=== PATIENT | male | born 1970 | race Caucasian/White ===

== ENCOUNTER → 2019-11-20 11:06 | Outpatient (BNVA) | payer OTHER, SELFPAY | PROVIDERS: Visit Provider Emergency Medicine | DX: R68.83 Chills (without fever) (principal); R68.89 Other general symptoms and signs | CPT/HCPCS: 87400; 87635 ==

== ENCOUNTER 2019-11-25 09:52 | Inpatient (IN) | payer OTHER, SELFPAY ==
[2019-11-25] VITALS (9 sets, daily range): BP systolic 119–145; BP diastolic 55–70; PULSE 67–101; RESP 18–20; TEMP 36.8–39.2; O2SAT 93–96; BMI 31.4
--- NOTE | 2019-11-25 09:54 | CT_ITS ---
WS: [id number] CT HEAD NONCONTRAST HISTORY: Headache. TECHNIQUE: Contiguous axial imaging performed through the brain in 2.5 mm imaging. Bone and soft tiss ue windows. Sagittal and coronal reformats reviewed. All CT scans at [facility] use at ast one of these dose optimization techniques: automated exposure control; mA and/or kV adjustment pe r patient size (includes targeted exams where dose is matched to clinical indication); or iterative r econstruction. DLP: 846.18 mGy.cm COMPARISON: None available. No acute intracranial hemorrhage, midline shift or mass effect. No atrophy or prior infarcts or herniation. Ventricles: Normal size with no hydrocephalus. Paranasal sinuses: As visualized are clear. Mastoid air cells: Well pneumatized. Calvarium and scalp: Skull is intact with no soft tissue edema or swelling. CT/CT head wo con* [id number] IMPRESSION: Negative head CT.
--- NOTE | 2019-11-25 10:29 | ED_ITS ---
Documented by User: WILLY Cleveland 11/25/19 13:14 HPI - Fever General: Chief Complaint: Fever Stated Complaint: H/A Time Seen by Provider: 11/25/19 10:16 Source: patient and family Mode of arrival: ambulatory Limitations: no limitations History of Present Illness: HPI Narrative: Patient is a 49-year-old male who presents to ED today with multiple medical complaints. He complains of a headache, fevers of up to 102-104, generalized weakness, shortness of breath with exertion, and increased urination. He states he is having trouble sleeping due to dry mouth and getting choked up on phlegm. He does not describe a cough otherwise. He has no shortness of breath or difficulty breathing at rest. Patient was seen at urgent care recently and had negative flu and COVID testing performed. Patient not had any sick contacts. He denies any recent tick bites. He is not having any abdominal pain, vomiting, diarrhea. He denies any lower extremity pain, swelling, cramping. Patient does report some pain to the left side of his neck and left ear pain he has not had any ear drainage, tinnitus, hearing loss, redness/swelling surrounding his ear. No back pain. Associated symptoms: Deny abdominal pain, flank pain, chest pain, diarrhea, dysuria, extremity pain, headache(s), nasal congestion, nausea or vomiting Review of Systems Const: Reports: fever(s), change in appetite and fatigue; Denies: body aches or malaise Eyes: Denies: change in vision, blurry vision, photophobia, floaters or seeing flashes ENMT: Denies: throat pain, odynophagia or nasal congestion Card: Reports: dyspnea on exertion; Denies: chest pain, palpitations, irregular heart rhythm, edema, swelling of feet/ankles, lightheadedness, syncope, pre-syncope, orthopnea or leg pain with exertion Resp: Reports: dyspnea (only with exertion ) and chest congestion (reports some phlegm when trying to sleep); Denies: productive cough, non-productive cough or hemoptysis GI: Denies: abdominal pain, nausea, vomiting or diarrhea : Reports: other (increased urination); Denies: flank pain, difficulty urinating, dysuria, urinary frequency, urinary urgency or urinary hesitancy Musc: Reports: neck pain (L sided neck pain); Denies: back pain, extremity pain, extremity swelling, joint pain or joint swelling Skin/Breast: Denies: rash Neuro: Denies: headache(s), numbness in extremities, weakness in extremities or sensory changes PFSH ED PFSH: Medical History (Updated 11/25/19 @ 14:02 by Katey Martinez MD) Essential hypertension Heart murmur, systolic Palpitation Surgical History No pertinent past surgical history Family History Other CAD (coronary artery disease) Cancer Diabetes Social History Smoking and tobacco status: current every day smoker cigarettes Packs smoked per day: 1 Quit status (tobacco): not considering quitting Alcohol intake: current Alcohol intake frequency: few times a month Substance/Drug Use: never Household members: family Marital status: Current occupational status: employed 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 History of recent travel: No Current gender identity: Male Physical Exam Const: COMMON NORMALS: patient oriented x3, no limitations, alert and well nourished GENERAL APPEARANCE: cooperative ORIENTATION/CONSCIOUSNESS: Yes oriented to person, Yes oriented to place and Yes oriented to time OTHER: looks like he doesn't feel well HENMT: COMMON NORMALS: normocephalic, atraumatic, hearing grossly normal harriet aterally, external ears normal, EAC's normal, Normal external nose present, Normal nasal mucous membranes and turbinates present, moist oral mucous membranes, oropharynx normal, dentition normal and gingiva normal HEAD & SCALP: normal to inspection, normocephalic and atraumatic FACE & SINUS: normal facial exam and sinuses nontender NOSE: Normal external nose present and Normal nasal mucous membranes and turbinates present EXTERNAL EAR: Yes external ears normal EXTERNAL AUDITORY CANAL: EAC's normal TYMPANIC MEMBRANE: TM abnormal (retractions/serous otitis) THROAT: posterior orophar ynx normal, tonsils normal and uvula midline Eye: COMMON NORMALS: Equal, round and reactive pupils present, EOMs intact bilaterally and conjunctivae normal CONJUNCTIVA: Yes conjunctivae normal PUPIL: Yes Equal, round and reactive pupils present Neck/C-Spine: COMMON NORMALS: full ROM, no lymphadenopathy and no meningeal signs OTHER: tenderness to L side of neck; negative Kernig's and Brudzinski's Chest: COMMONS NORMALS: normal inspection of the chest and normal palpation of entire chest wall Resp: COMMON NORMALS: normal respiratory effort and clear to auscultation bilaterally AUSCULTATION: clear to auscultation bilaterally Cardio: COMMON NORMALS: regular rhythm RATE: tachycardic (mild) RHYTHM: regular rhythm GI: COMMON NORMALS: Normal to inspection, nondistended, normoactive bowel sounds present, Soft to palpation, non-tender, No hepatosplenomegaly present and no masses PALPATION: Yes Soft to palpation and Yes No hepatosplenomegaly present Extremity: COMMON NORMALS: normal to inspection GENERAL: Yes normal exam except as noted Neuro: ELI COMA SCALE: document GCS findings Eli coma scale eye opening: Spontaneous Eli coma scale verbal response: Orientated Eli coma scale motor response: Obey commands [place] coma scale total score: 15 COMMON NORMALS: patient oriented x3, CN's II-XII intact bilaterally, moves all extremities, no focal motor deficits and no sensory deficits noted SENSORIUM/ORIENTATION: Yes alert, Yes oriented to person, Yes oriented to place and Yes oriented to time MENINGEAL SIGNS: Yes no meningeal signs Skin: COMMON NORMALS: no rashes or lesions noted GENERAL SKIN EXAM: no rash es or lesions noted Course Vital Signs: Vital signs: Vital Signs Temperature 100.6 F H 11/25/19 20:00 Pulse Rate 84 11/25/19 20:00 Respiratory Rate 20 H 11/25/19 20:00 Blood Pressure 145/70 11/25/19 20:00 Pulse Oximetry 95 11/25/19 19:00 MDM - Fever MDM Narrative: Medical decision making narrative: This is now patient's third medical visit for similar symptoms. He has had symptoms now for 6 days and does not seem to be improving. Patient's lab work showing a white count of 18.4 with a left shift. He is hyponatremic at 125, hypokalemic at 3.1, hypocalcemic at 7.7. He has mildly elevated LFTs. CRP is 294. I have a suspicion based on these for possible tickborne illness. We will go ahead and place patient on IV doxycycline. Dr. Lauren has also seen patient and agrees with admission. She will speak to the hospitalist. Lab Data: Labs: Lab Results 11/25/19 11/25/19 11/25/19 Range/Units 11:06 11:06 11:06 WBC 18.4 H (4.0-10.0) 10^3/ uL RBC 4.69 (4.1-5.3) 10^6/u L Hgb 14.6 (11.7-16.6) g/dL Hct 40.7 L (42.0-52.0) % MCV 86.8 (80-94) fL MCH 31.1 (28.0-34.0) pg MCHC 35.9 (30.0-36.0) g/dL RDW 12.6 (12.1-15.1) % Plt Count 36 L (130-400) 10^3/c mm MPV Not Reportable Neut % (Auto) 86.7 % Lymph % (Auto) 5.9 % [place] % (Auto) 5.6 % Eos % (Auto) 0.0 % Baso % (Auto) 0.3 % Neut # (Auto) 15.98 H (1.8-7.7) 10^3/u L Lymph # (Auto) 1.1 (0.8-4.8) 10^3/u L [place] # (Auto) 1.0 H (0.2-0.9) 10^3/u L Eos # (Auto) 0.0 (0.0-0.8) 10^3/u L Baso # (Auto) 0.1 (0.0-0.1) 10^3/u L Nucleated RBC % (a uto) 0 % Nucleated RBCs # 0.0 /100WBC PT (10.5-13.3) SECO NDS INR (0.8-1.2) D-Dimer (0-0.59) ug/mIFE U Sodium 125 L (136-145) mmol/L Potassium 3.1 L (3.5-5.1) mmol/L Chloride 90 L (98-107) mmol/L Carbon Dioxide 22 (22-29) mmol/L Anion Gap 16.1 (5-19) BUN 16 (6-20) mg/dL Creatinine 1.0 (0.7-1.2) mg/dL GFR Calculation 80.1 L (90-130) mL/min Glucose 133 H (65-115) mg/dL Calculated Osmolal ity 258 L (285-295) mOsm/k g Lactic Acid 1.1 (0.5-2.2) mmol/L Calcium 7.7 L (8.5-10.5) mg/dL Total Bilirubin 1.2 (0.15-1.2) mg/dL AST 41 H (0-40) U/L ALT 51 H (0-41) U/L Alkaline Phosphata se 176 H (40-130) IU/L C-Reactive Protein 294.8 H (0.0-4.9) mg/L Total Protein 6.0 L (6.6-8.7) g/dL Albumin 2.8 L (3.5-5.2) g/dL Globulin 3.2 (1.3-4.6) g/dL TSH (0.27-4.20) uIU/ mL Urine Color (Yellow) Urine Appearance (CLEAR) Urine pH (5-7) Ur Specific Gravit y (1.005-1.030) Urine Protein (Negative) Urine Glucose (UA) (Normal) Urine Ketones (Negative) Urine Blood (Negative) Urine Nitrate (Negative) Urine Bilirubin (NEGATIVE) Urine Urobilinogen (Negative) mg/dL Ur Leukocyte Minerva ase (Negative) Urine RBC (0-2) /hpf Urine WBC (0-5) /hpf Ur Squamous Epith Cells (0-5) Amorphous Sediment Urine Bacteria (NONE) 11/25/19 11/25/19 11/25/19 Range/Units 11:06 11:06 11:58 WBC (4.0-10.0) 10^3/ uL RBC (4.1-5.3) 10^6/u L Hgb (11.7-16.6) g/dL Hct (42.0-52.0) % MCV (80-94) fL MCH (28.0-34.0) pg MCHC (30.0-36.0) g/dL RDW (12.1-15.1) % Plt Count (130-400) 10^3/c mm MPV Neut % (Auto) % Lymph % (Auto) % [place] % (Auto) % Eos % (Auto) % Baso % (Auto) % Neut # (Auto) (1.8-7.7) 10^3/u L Lymph # (Auto) (0.8-4.8) 10^3/u L [place] # (Auto) (0.2-0.9) 10^3/u L Eos # (Auto) (0.0-0.8) 10^3/u L Baso # (Auto) (0.0-0.1) 10^3/u L Nucleated RBC % (a uto) % Nucleated RBCs # /100WBC PT 15.10 H (10.5-13.3) SECO NDS INR 1.15 (0.8-1.2) D-Dimer 4.59 H (0-0.59) ug/mIFE U Sodium (136-145) mmol/L Potassium (3.5-5.1) mmol/L Chloride (98-107) mmol/L Carbon Dioxide (22-29) mmol/L Anion Gap (5-19) BUN (6-20) mg/dL Creatinine (0.7-1.2) mg/dL GFR Calculation (90-130) mL/min Glucose (65-115) mg/dL Calculated Osmolal ity (285-295) mOsm/k g Lactic Acid (0.5-2.2) mmol/L Calcium (8.5-10.5) mg/dL Total Bilirubin (0.15-1.2) mg/dL AST (0-40) U/L ALT (0-41) U/L Alkaline Phosphata se (40-130) IU/L C-Reactive Protein (0.0-4.9) mg/L Total Protein (6.6-8.7) g/dL Albumin (3.5-5.2) g/dL Globulin (1.3-4.6) g/dL TSH 0.91 (0.27-4.20) uIU/ mL Urine Color Yellow (Yellow) Urine Appearance Clear (CLEAR) Urine pH 5 (5-7) Ur Specific Gravit y 1.010 (1.005-1.030) Urine Protein 1+ H (Negative) Urine Glucose (UA) Norm (Normal) Urine Ketones 1+ H (Negative) Urine Blood 3+ H (Negative) Urine Nitrate Negative (Negative) Urine Bilirubin Neg (NEGATIVE) Urine Urobilinogen Norm (Negative) mg/dL Ur Leukocyte Minerva ase Negative (Negative) Urine RBC 25-40 H (0-2) /hpf Urine WBC 0-4 H (0-5) /hpf Ur Squamous Epith Cells 0-4 H (0-5) Amorphous Sediment Not Reportable Urine Bacteria 2+ H (NONE) Imaging Data^: CT Head: Radiologist's impression: [address] [place] [address] CT Scan Report Signed Patient: Chip Ramirez Unit #: [id number] : 1970 Age/Sex: 49 / M ADM Date: 11/25/19 Loc: ER Room/Bed: Attending Dr: Ordering Provider/Ordering MD: Kelton Bagley DO Date of Service: 11/25/19 Procedure(s): CT head wo con* [id number] Accession Number(s): [id number] Report Number: [id number] WS: [id number] CT HEAD NONCONTRAST HISTORY: Headache. TECHNIQUE: Contiguous axial imaging performed through the brain in 2.5 mm imaging. Bone and soft tissue windows. Sagittal and coronal reformats reviewed. All CT scans at [facility] use at least one of these dose optimization techniques: automated exposure control; mA and/or kV adjustment per patient size (includes targeted exams where dose is matched to clinical indication); or iterative reconstruction. DLP: 846.18 mGy.cm COMPARISON: None available. No acute intracranial hemorrhage, midline shift or mass effect. No atrophy or prior infarcts or herniation. Ventricles: Normal size with no hydrocephalus. Paranasal sinuses: As visualized are clear. Mastoid air cells: Well pneumatized. Calvarium and scalp: Skull is intact with no soft tissue edema or swelling. CT/CT head wo con* [id number] IMPRESSION: Negative head CT. Dictated By: Jacki Suárez DO Signed By: Jacki Suárez DO Signed Date/Time: 11/25/19 1049 DD/ 1048 CXR: Radiologist's impression: [facility] [address] [place] [address] XRay Report Signed Patient: Chip Ramirez Unit #: [id number] : 1970 Age/Sex: 49 / M ADM Date: 11/25/19 Loc: ER Room/Bed: Attending Dr: Ordering Provider/Ordering MD: Kiana Reyes Date of Service: 11/25/19 Procedure(s): XR chest 1V portable [id number] Accession Number(s): [id number] Report Number: [id number] WS: [id number] Portable AP upright chest, Clinical Data: SOB, fevers Comparison: None. Findings: No nodules, masses or effusions are seen. The heart is slightly enlarged. The pulmonary vascularity is not increased. No pneumonia or pneumothorax is seen. XR/XR chest 1V portable [id number] Impression: Negative chest. Dictated By: Kenyatta Stallings MD Signed By: Kenyatta Stallings MD Signed Date/Time: 11/25/19 103 DD/ 1039 Discharge Plan Discharge Patient Disposition: Placed in Observation Admit Provider: Katey Martinez Clinical Impression: Acute hyponatremia, Thrombocytopenia, COVID-19 virus test result unknown, Transaminitis Fever Qualifiers: Fever type: unspecified Qualified Code(s): R50.9 - Fever, unspecified Leukocytosis Qualifiers: Leukocytosis type: unspecified Qualified Code(s): D72.829 - Elevated white b lood cell count, unspecified Condition: Stable Discharge Date/Time: 11/25/19 13:52 Coding Level of Care Code ED Internal Audit Consultant for Chg Fwd Exam Comprehensive Documented by User: Nina Lauren MD 11/25/19 21:46 HPI - Fever General: Chief Complaint: Fever Stated Complaint: H/A Time Seen by Provider: 11/25/19 10:16 PFSH ED PFSH: Medical History (Updated 11/25/19 @ 14:02 by Katey Martinez MD) Essential hypertension Heart murmur, systolic Palpitation Surgical History No pertinent past surgical history Family History Other CAD (coronary artery disease) Cancer Diabetes Social History Smoking and tobacco status: current every day smoker cigarettes Packs smoked per day: 1 Quit status (tobacco): not considering quitting Alcohol intake: current Alcohol intake frequency: few times a month Substance/Drug Use: never Household members: family Marital status: Current occupational status: employed 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 Patient has had over a week of fever. He has been seen at the [place] urgent [facility] in urgent care in [place]. On his initial visit on November 19 he was tested for flu and COVID and both came back negative. He was given Zithromax which she has completed. On his second visit he was given Zofran and Fioricet for his headache. His symptoms are general and consistent with some sort of viral syndrome with fever, chills, body aches, headache, nausea. He also complains of fatigue. His labs were concerning for potential tickborne illness given thrombocytopenia, hyponatremia, hypokalemia. His white count is also elevated to 18,000. His LFTs are elevated. His CRP is quite high. He does not recall any tick bites. He does not have any meningeal signs and I do not think that an LP is necessary at this point. We will start doxycycline and sent a tick panel for the possibility of a tick related illness. Were also going to retest for COVID given the high rate of false negative results that has typically been seen with that test. He is also getting normal saline with potassium. CT of his head and chest x-ray were both normal. He will be admitted to Dr. Martinez for further evaluation, treatment, electrolyte replacement. Vital Signs: Vital signs: Vital Signs Temperature 100.6 F H 11/25/19 20:00 Pulse Rate 84 11/25/19 20:00 Respiratory Rate 20 H 11/25/19 20:00 Blood Pressure 145/70 11/25/19 20:00 Pulse Oximetry 95 07/23/20 19:00 MDM - Fever Lab Data: Labs: Lab Results 11/25/19 11/25/19 11/25/19 Range/Units 11:06 11:06 11:06 WBC 18.4 H (4.0-10.0) 10^3/ uL RBC 4.69 (4.1-5.3) 10^6/u L Hgb 14.6 (11.7-16.6) g/dL Hct 40.7 L (42.0-52.0) % MCV 86.8 (80-94) fL MCH 31.1 (28.0-34.0) pg MCHC 35.9 (30.0-36.0) g/dL RDW 12.6 (12.1-15.1) % Plt Count 36 L (130-400) 10^3/c mm MPV Not Reportable Neut % (Auto) 86.7 % Lymph % (Auto) 5.9 % [place] % (Auto) 5.6 % Eos % (Auto) 0.0 % Baso % (Auto) 0.3 % Neut # (Auto) 15.98 H (1.8-7.7) 10^3/u L Lymph # (Auto) 1.1 (0.8-4.8) 10^3/u L [place] # (Auto) 1.0 H (0.2-0.9) 10^3/u L Eos # (Auto) 0.0 (0.0-0.8) 10^3/u L Baso # (Auto) 0.1 (0.0-0.1) 10^3/u L Nucleated RBC % (a uto) 0 % Nucleated RBCs # 0.0 /100WBC PT (10.5-13.3) SECO NDS INR (0.8-1.2) D-Dimer (0-0.59) ug/mIFE U Sodium 125 L (136-145) mmol/L Potassium 3.1 L (3.5-5.1) mmol/L Chloride 90 L (98-107) mmol/L Carbon Dioxide 22 (22-29) mmol/L Anion Gap 16.1 (5-19) BUN 16 (6-20) mg/dL Creatinine 1.0 (0.7-1.2) mg/dL GFR Calculation 80.1 L (90-130) mL/min Glucose 133 H (65-115) mg/dL Calculated Osmolal ity 258 L (285-295) mOsm/k g Lactic Acid 1.1 (0.5-2.2) mmol/L Calcium 7.7 L (8.5-10.5) mg/dL Total Bilirubin 1.2 (0.15-1.2) mg/dL AST 41 H (0-40) U/L ALT 51 H (0-41) U/L Alkaline Phosphata se 176 H (40-130) IU/L C-Reactive Protein 294.8 H (0.0-4.9) mg/L Total Protein 6.0 L (6.6-8.7) g/dL Albumin 2.8 L (3.5-5.2) g/dL Globulin 3.2 (1.3-4.6) g/dL TSH (0.27-4.20) uIU/ mL Urine Color (Yellow) Urine Appearance (CLEAR) Urine pH (5-7) Ur Specific Gravit y (1.005-1.030) Urine Protein (Negative) Urine Glucose (UA) (Normal) Urine Ketones (Negative) Urine Blood (Negative) Urine Nitrate (Negative) Urine Bilirubin (NEGATIVE) Urine Urobilinogen (Negative) mg/dL Ur Leukocyte Minerva ase (Negative) Urine RBC (0-2) /hpf Urine WBC (0-5) /hpf Ur Squamous Epith Cells (0-5) Amorphous Sediment Urine Bacteria (NONE) 11/25/19 11/25/19 11/25/19 Range/Units 11:06 11:06 11:58 WBC (4.0-10.0) 10^3/ uL RBC (4.1-5.3) 10^6/u L Hgb (11.7-16.6) g/dL Hct (42.0-52.0) % MCV (80-94) fL MCH (28.0-34.0) pg MCHC (30.0-36.0) g/dL RDW (12.1-15.1) % Plt Count (130-400) 10^3/c mm MPV Neut % (Auto) % Lymph % (Auto) % [place] % (Auto) % Eos % (Auto) % Baso % (Auto) % Neut # (Auto) (1.8-7.7) 10^3/u L Lymph # (Auto) (0.8-4.8) 10^3/u L [place] # (Auto) (0.2-0.9) 10^3/u L Eos # (Auto) (0.0-0.8) 10^3/u L Baso # (Auto) (0.0-0.1) 10^3/u L Nucleated RBC % (a uto) % Nucleated RBCs # /100WBC PT 15.10 H (10.5-13.3) SECO NDS INR 1.15 (0.8-1.2) D-Dimer 4.59 H (0-0.59) ug/mIFE U Sodium (136-145) mmol/L Potassium (3.5-5.1) mmol/L Chloride (98-107) mmol/L Carbon Dioxide (22-29) mmol/L Anion Gap (5-19) BUN (6-20) mg/dL Creatinine (0.7-1.2) mg/dL GFR Calculation (90-130) mL/min Glucose (65-115) mg/dL Calculated Osmolal ity (285-295) mOsm/k g Lactic Acid (0.5-2.2) mmol/L Calcium (8.5-10.5) mg/dL Total Bilirubin (0.15-1.2) mg/dL AST (0-40) U/L ALT (0-41) U/L Alkaline Phosphata se (40-130) IU/L C-Reactive Protein (0.0-4.9) mg/L Total Protein (6.6-8.7) g/dL Albumin (3.5-5.2) g/dL Globulin (1.3-4.6) g/dL TSH 0.91 (0.27-4.20) uIU/ mL Urine Color Yellow (Yellow) Urine Appearance Clear (CLEAR) Urine pH 5 (5-7) Ur Specific Gravit y 1.010 (1.005-1.030) Urine Protein 1+ H (Negative) Urine Glucose (UA) Norm (Normal) Urine Ketones 1+ H (Negative) Urine Blood 3+ H (Negative) Urine Nitrate Negative (Negative) Urine Bilirubin Neg (NEGATIVE) Urine Urobilinogen Norm (Negative) mg/dL Ur Leukocyte Minerva ase Negative (Negative) Urine RBC 25-40 H (0-2) /hpf Urine WBC 0-4 H (0-5) /hpf Ur Squamous Epith Cells 0-4 H (0-5) Amorphous Sediment Not Reportable Urine Bacteria 2+ H (NONE) Discharge Plan Discharge Patient Disposition: Placed in Observation Admit Provider: Katey Martinez Clinical Impression: Acute hyponatremia, Thrombocytopenia, COVID-19 virus test result unknown, Transaminitis Fever Qualifiers: Fever type: unspecified Qualified Code(s): R50.9 - Fever, unspecified Leukocytosis Qualifiers: Leukocytosis type: unspecified Qualified Code(s): D72.829 - Elevated white blood cell count, unspecified Condition: Stable Discharge Date/Time: 11/25/19 13:52 Coding Level of Care Code ED Internal Audit Consultant for Afsanehg Fwd Exam Comprehensive
--- NOTE | 2019-11-25 10:29 | PC.NURSE ---
pt to CT scan by stretcher with tech
--- NOTE | 2019-11-25 10:30 | XR_ITS ---
WS: [id number] Portable AP upright chest, Clinical Data: SOB, fevers Comparison: None. Findings: No nodules, masses or effusions are seen. The heart is slightly enlarged. The pulmonary vas cularity is not increased. No pneumonia or pneumothorax is seen. XR/XR chest 1V portable [id number] Impression: Negative chest.
[2019-11-25] MEDS: sodium chloride 0.9% 1,000 ML 999 ML IV (11:11)
[2019-11-25 11:16] LABS: Basophils # 0.1 10^3/uL (0.0-0.1); Basophils % 0.3 %; Hematocrit 40.7 % (42.0-52.0); Hemoglobin 14.6 g/dL (11.7-16.6); Lymphocytes # 1.1 10^3/uL (0.8-4.8); Lymphocytes % 5.9 %; Mean Corpuscular HGB Conc 35.9 g/dL (30.0-36.0); Mean Corpuscular Hemoglobin 31.1 pg (28.0-34.0); Mean Corpuscular Volume 86.8 fL (80-94); Monocytes % 5.6 %; Neutrophils # 15.98 10^3/uL (1.8-7.7); Neutrophils % 86.7 %; Nucleated Red Blood Cells % 0 %; Platelet Count 36 10^3/cmm (130-400); Red Blood Count 4.69 10^6/uL (4.1-5.3); Red Cell Distribution Width 12.6 % (12.1-15.1); White Blood Count 18.4 10^3/uL (4.0-10.0)
[2019-11-25 11:32] LABS: Lactic Sepsis W/Reflex 1.1 mmol/L (0.5-2.2)
[2019-11-25 11:34] LABS: Alanine Aminotransferase 51 U/L (0-41); Albumin Level 2.8 g/dL (3.5-5.2); Alkaline Phosphatase 176 IU/L (40-130); Anion Gap 16.1 (5-19); Aspartate Amino Transferase 41 U/L (0-40); Blood Urea Nitrogen 16 mg/dL (6-20); C Reactive Protein 294.8 mg/L (0.0-4.9); Calcium 7.7 mg/dL (8.5-10.5); Carbon Dioxide 22 mmol/L (22-29); Chloride 90 mmol/L (98-107); Globulin 3.2 g/dL (1.3-4.6); Glomerular Filtration Rate 80.1 mL/min (90-130); Glucose 133 mg/dL (65-115); Osmolality Calculated 258 mOsm/kg (285-295); Potassium 3.1 mmol/L (3.5-5.1); Sodium 125 mmol/L (136-145); Total Bilirubin 1.2 mg/dL (0.15-1.2)
[2019-11-25 12:13] LABS: Add Urine Microscopic? YES; Bilirubin Urine Neg (NEGATIVE); Blood Urine 3+ (Negative); Glucose Urine UA Norm (Normal); Ketones Urine 1+ (Negative); Leukocyte Esterase Urine Negative (Negative); Nitrate Urine Negative (Negative); Protein Urine 1+ (Negative); Urine Appearance Clear (CLEAR); Urine Color Yellow (Yellow); Urobilinogen Urine Norm (Negative); pH Urine 5 (5-7)
[2019-11-25 12:16] LABS: Add Urine Culture? Yes; Bacteria Urine 2+; RBC Urine 25-40 /hpf (0-2); Squamous Epithelial Cell Urine 0-4 (0-5); WBC Urine 0-4 /hpf (0-5)
[2019-11-25] MEDS: doxycycline 100 MG in sodium chloride 0.9% (plus) 100 ML IV (12:55)
--- NOTE | 2019-11-25 13:09 | PC.NURSE ---
pt swabbed for COVID 19 salas virus and placed on droplet precautions
--- NOTE | 2019-11-25 13:30 | P.HP_ITS ---
Providers/Chief Complaint Admitting Physician: Katey Martinez MD Primary Care Provider: DOCTOR NOT ON FILE Chief Complaint: H/A History of Present Illness Chip Ramirez is a 49 year old male with no significant PMHx presents from home accompanied by evaluation of ongoing malaise, fever, diaphoresis, generalized weakness, headache for the past 5 days. Patient is quite ill-appearing during my encounter in the ER, is at bedside and collaborates history obtained directly from patient. On my entrance to the room room is dark, shades are drawn and he is visibly diaphoretic. Getting him to sit up during my examination seem to take a lot out of him and he is close as well as leaning on the stretcher and noted to be soaked through. Seems to have had ongoing symptoms since Friday which is the last day he was able to go to work. 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 Up until Friday he seemed to be managing just fine. Was not taking any medications regularly. However since then due to ongoing symptoms including a T-max of 104F he has been seen by his primary care provider who thought symptoms are related to respiratory illness and prescribed a course of azithromycin. Patient took this with limited improvement so pre sented to an urgent care center in [place] on Friday, was given some pain medications then sent home. He has continued to feel poorly with minimal oral intake other than some water prompting visit to the ER today. He denies having had any chest pain but has had some shortness of breath when exerting himself. Though he has had some generalized weakness he has not had any falls, denies any palpitations, syncope. He has had some intermittent blurry vision particularly when he is feverish. Denies any changes in his mental status or disorientation, lightheadedness, abdominal pain, nausea/vomiting, blood in his urine or stool, changes in his urination. At the onset of his symptoms he began to have diarrhea which has persisted. Last full meal was on Friday. He has been feeling so poorly that he has not been able to smoke, typically smokes 1 pack/day. He denies any alcohol use or illicit drug use. Work-up so far has revealed leukocytosis with neutrophilic predominance, white count of 18.4, normal hemoglobin at 14.6, significant thrombocytopenia with a platelet count of 36, hyponatremia with a sodium of 125, hypokalemia with a potassium of 3.1, BUN of 16, creatinine of 1.0, blood glucose of 133, noted transaminitis, CRP of 254.8. He appears hypocalcemic but corrected calcium is 8.7. He has received some IV fluid hydration and a dose of doxycycline due to suspicion for tickborne illness the patient denies any exposure to ticks, has not had any rash or lesions on his skin. He is currently hemodynamically stable, afebrile with a temperature of 90 8.8F. He was tested for COVID-19 on 11/19 but due to his ongoing symptoms we will retest him today. He will need to be on isolation precautions. In light of his generally ill appearance, lab abnormalities will need further evaluation and hospitalization. Discussed care plan with patient and at bedside. Review of Systems Const: Reports: fever(s), chills, body aches, change in appetite (decreased appetite), fatigue, malaise, night sweats and diaphoresis Eyes: Reports: blurry vision (intermittently); Denies: change in vision ENMT: Denies: odynophagia or oral sores Card: Reports: dyspnea on exertion; Denies: chest pain, edema, swelling of feet/ankles, lightheadedness, syncope or pre-syncope Resp: Denies: dyspnea, productive cough or non-productive cough GI: Reports: diarrhea; Denies: abdominal pain, nausea, vomiting, hematemesis or hematochezia : Denies: dysuria, urinary frequency or hematuria Musc: Denies: back pain Skin/Breast: Denies: rash Neuro: Reports: headache(s), weakness in extremities and difficulty walking; Denies: numbness in extremities, frequent falls, dizziness, vertigo, confusion or seizure-like activity Psych: Denies: anxiety Endo: Denies: polyuria Medications/Allergies Home Medications Medication Instructions Recorded Confirmed Last Taken Type albuterol sulfate 90 mcg/actuation 2 puff INHALATION Q6H PRN #8.5 gm 11/20/19 11/25/19 Unknown Rx aerosol inhaler aspirin 81 mg tablet,delayed 81 mg PO DAILY 11/20/19 11/25/19 11/24/19 History release azithromycin 250 mg tablet See Rx Instructions PO .COMPLEX #6 11/20/19 11/25/19 11/24/19 Rx tab faazduivdmgerak-uebsazvkyquioma-HE 7.5 ml PO Q6H PRN #160 ml 11/20/19 11/25/19 11/23/19 Rx 2 mg-30 mg-10 mg/5 mL oral syrup omega-3 fatty acids 1,000 mg 1,000 mg PO DAILY 11/20/19 11/25/19 11/24/19 History capsule vitamin B complex 1 tab PO DAILY 11/20/19 11/25/19 11/24/19 History pvckdkufub-lunbnqqkjywab-hldz 1 tab PO Q4H PRN 11/25/19 11/25/19 Unknown History ibuprofen 800 mg PO PRN 11/25/19 11/25/19 11/24/19 History ondansetron HCl [Zofran] 4 mg PO Q6H PRN 11/25/19 11/25/19 Unknown History Allergies Allergy/AdvReac Type Severity Reaction Status Date / Time No Known Allergies Allergy Verified 11/25/19 11:06 PFSH Acute PFSH: Medical History (Updated 11/25/19 @ 14:02 by Katey Martinez MD) Essential hypertension Heart murmur, systolic Palpitation Surgical History No pertinent past surgical history Family History Other CAD (coronary artery disease) Cancer Diabetes Social History Smoking and tobacco status: current every day smoker cigarettes Packs smoked per day: 1 Quit status (tobacco): not considering quitting Alcohol intake: current Alcohol intake frequency: few times a month Substance/Drug Use: never Household members: family Marital status: Current occupational status: employed 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 History of recent travel: No Current gender identity: Male Vitals/I&O/Wt Last Vital Signs Temp 98.8 F 11/25/19 13:08 Pulse 67 11/25/19 13:08 Resp 20 H 11/25/19 11:38 BP 122/55 11/25/19 13:08 Pulse Ox 95 11/25/19 13:08 11/24/19 11/25/19 11/25/19 22:59 06:59 14:59 Intake Total 1100 / 1100 Balance 1100 / 1100 Weight last 48 hrs Weight 105.233 kg Physical Exam Const: COMMON NORMALS: no acute distress, patient oriented x3 and alert GENERAL APPEARANCE: cooperative, ill appearing and diaphoretic NUTRITIONAL APPEARANCE: obese morbidly obese ORIENTATION/CONSCIOUSNESS: Yes awake HENMT: COMMON NORMALS: normocephalic, atraumatic and hearing grossly normal bilaterally HEAD & SCALP: normocephalic and atraumatic MOUTH: moist mucous membranes abnormal Details: parched Eye: COMMON NORMALS: Equal, round and reactive pupils present, EOMs intact bilaterally and conjunctivae normal CONJUNCTIVA: Yes conjunctivae normal PUPIL: Yes Equal, round and reactive pupils present Neck/C-Spine: COMMON NORMALS: full ROM GENERAL: Yes normal visual inspection and Yes trachea midline Resp: COMMON NORMALS: normal respiratory effort, No retractions, No use of accessory muscles and clear to auscultation bilaterally EFFORT & INSPECTION: Yes able to speak in complete sentences, Yes symmetric chest movement and No tachypneic AUSCULTATION: clear to auscultation bilaterally Cardio: COMMON NORMALS: regular rate, regular rhythm, S1 normal heart sound present, S2 normal heart sound present and No murmurs present (Cardio) RATE: regular rate RHYTHM: regular rhythm HEART SOUNDS: S1 normal heart sound present and S2 normal heart sound present GI: COMMON NORMALS: Normal to inspection, nondistended, normoactive bowel sounds present, Soft to palpation and non-tender PALPATION: Yes Soft to palpation Extremity: COMMON NORMALS: normal to inspection, full ROM and no clubbing, cyanosis or edema; negative for no pedal edema Neuro: COMMON NORMALS: patient oriented x3, moves all extremities, no focal motor deficits and no sensory deficits noted Psych: COMMON NORMALS: mental status grossly normal, Normal thought process present, cooperative, normal affect and speech normal SPEECH: Yes normal speech THOUGHT PROCESS: Normal thought process present Skin: COMMON NORMALS: no rashes or lesions noted, no jaundice, no petechiae and no mottling GENERAL SKIN EXAM: no rashes or lesions noted Data : 11/25/19 11:06 11/25/19 11:06 Micro: Microbiology 11/25/19 11:22 Blood Culture - Preliminary Blood SPECIMEN COLLECTED 07/23/20 11:06 Blood Culture - Preliminary Blood SPECIMEN COLLECTED A&P Assessment and plan (1) Fever: -Had persistent fever, diaphoresis, malaise for about 5 days -Unclear etiology at this time -Had been treated with a course of azithromycin due to suspicion for respiratory illness; previously tested for influenza and COVID 19 both of which were negative -Noted to have hyponatremia, transaminitis, hypokalemia, significant thrombocytopenia leukocytosis -Could be related to a viral illness versus tickborne illness -Tick panel pending -Received dose of doxycycline in ED, will continue this empirically -Chest x-ray unremarkable, head CT negative -COVID-19 testing ordered, isolation precautions -UA with noted hematuria -order D-dimer, lactic acid, TSH -f/u blood cx Status: Acute Qualifiers: Fever type: unspecified Qualified Code(s): R50.9 - Fever, unspecified (2) Acute hyponatremia: -hypovolemic with noted decreased oral intake -trend Na -IVF hydration Status: Acute (3) Thrombocytopenia: -Acute thrombocytopenia as previous platelet counts have been within normal limits -Seems to be related to acute illness -Repeat labs for confirmation along with peripheral smear -No prior history of immunocompromise -trend platelet count -hold NSAIDs, ASA Status: Acute (4) Leukocytosis: -unclear etiology as workup so far unrevealing; noted to have neutrophilic predominance -empiric doxycycline due to suspicion of tick-borne illness -trend WBC Status: Acute Qualifiers: Leukocytosis type: unspecified Qualified Code(s): D72.829 - Elevated white blood cell count, unspecified (5) Transaminitis: -Noted transaminitis -Order acute hepatitis panel -Trend LFTs -if persistent along with abdominal symptoms, may need imaging Status: Acute Additional A&P Information -Hypokalemia; replaced IV; repeat labs in AM -Obesity: BMI-32 kg/m2 -Chronic smoker, 1 PPD, nicotine replacement therapy -Physical deconditioning, due to acute illness with poor oral intake, hyponatremia -Dehydration; as noted above -Headache; resolved currently; pain control as needed -regular diet as tolerated -up with assist; PT evaluation due to c/o generalized weakness -DVT ppx with heparin -Dispo: home -Code status: FULL code Attestations Medical Necessity Statement*: Chip Ramirez's hospital stay will require greater than 2 midnights for management of fever, hyponatremia secondary to dehydration, transaminitis; generally quite ill-appearing requiring IV fluid h ydration, empiric antibiotics and further work-up. Time Spent in Patient Care: Greater than 35 minutes (>than 50% of time spent in counselling and/or direct pt care on unit) . Coding Level of Care Code Acute [employer] for [facility] Fwd Diagnoses Fever R50.9 Fever type: unspecified Acute hyponatremia E87.1 Thrombocytopenia D69.6 Leukocytosis D72.829 Leukocytosis type: unspecified Transaminitis R74.0
[2019-11-25 14:17] LABS: INR 1.15 (0.8-1.2)
[2019-11-25 14:29] LABS: LAB Peripheral Smear Sent for Review
[2019-11-25 14:32] LABS: D Dimer 4.59 ug/mIFEU (0-0.59); Thyroid Stimulating Hormone 0.91 uIU/mL (0.27-4.20)
[2019-11-25 14:49] LABS: Lactic Sepsis W/Reflex 1.1 mmol/L (0.5-2.2)
[2019-11-25] MEDS: nicotine 14 mg Patch 1 PATCH TRANSDERMA (15:39)
[2019-11-25] MEDS: heparin 5,000 unit/mL INJ 1 mL 5000 UNIT SUBCUT (15:39)
[2019-11-25] MEDS: sodium chlor 0.9% + KCl 20 mEq 20 MEQ/1,000 ML BAG 125 MEQ IV (15:39)
[2019-11-25 15:49] LABS: Hepatitis A Antibody IgM Non-Reactive (Nonreactive); Hepatitis B Core IgM Non-Reactive (Nonreactive); Hepatitis B Surface Antigen Non-Reactive (Nonreactive); Hepatitis C Virus Antibody Non-Reactive (Nonreactive)
[2019-11-25] MEDS: doxycycline 100 mg Tablet PO (18:33)
[2019-11-25] MEDS: acetaminophen 325 mg Tablet 650 MG PO (20:12)
[2019-11-26] VITALS (11 sets, daily range): BP systolic 130–148; BP diastolic 64–70; PULSE 71–83; RESP 16–22; TEMP 36.9–39.4; O2SAT 95–97
[2019-11-26] MEDS: sodium chlor 0.9% + KCl 20 mEq 20 MEQ/1,000 ML BAG 125 MEQ IV ×3 (00:02→17:19)
[2019-11-26] MEDS: heparin 5,000 unit/mL INJ 1 mL 5000 UNIT SUBCUT ×2 (03:47→16:00)
[2019-11-26] MEDS: acetaminophen 325 mg Tablet 650 MG PO ×3 (03:55→20:22)
[2019-11-26 04:39] LABS: Basophils # 0.1 10^3/uL (0.0-0.1); Basophils % 0.3 %; Eosinophils % 0.2 %; Hemoglobin 13.7 g/dL (11.7-16.6); Lymphocytes # 1.3 10^3/uL (0.8-4.8); Lymphocytes % 6.3 %; Mean Corpuscular HGB Conc 34.3 g/dL (30.0-36.0); Mean Corpuscular Hemoglobin 31.8 pg (28.0-34.0); Mean Corpuscular Volume 92.8 fL (80-94); Monocytes # 1.2 10^3/uL (0.2-0.9); Monocytes % 6.1 %; Neutrophils # 16.97 10^3/uL (1.8-7.7); Neutrophils % 85.8 %; Nucleated Red Blood Cells % 0 %; Platelet Count 44 10^3/cmm (130-400); Red Blood Count 4.31 10^6/uL (4.1-5.3); Red Cell Distribution Width 13.4 % (12.1-15.1); White Blood Count 19.8 10^3/uL (4.0-10.0)
[2019-11-26 04:57] LABS: Alanine Aminotransferase 46 U/L (0-41); Albumin Level 2.3 g/dL (3.5-5.2); Alkaline Phosphatase 190 IU/L (40-130); Aspartate Amino Transferase 43 U/L (0-40); Blood Urea Nitrogen 14 mg/dL (6-20); Calcium 7.3 mg/dL (8.5-10.5); Carbon Dioxide 24 mmol/L (22-29); Chloride 95 mmol/L (98-107); Globulin 3.1 g/dL (1.3-4.6); Glomerular Filtration Rate 80.1 mL/min (90-130); Glucose 102 mg/dL (65-115); Magnesium 2.2 mg/dL (1.7-2.3); Osmolality Calculated 264 mOsm/kg (285-295); Sodium 129 mmol/L (136-145); Total Bilirubin 1.1 mg/dL (0.15-1.2); Total Protein 5.4 g/dL (6.6-8.7)
[2019-11-26 04:59] LABS: Anion Gap 13.5 (5-19); Potassium 3.5 mmol/L (3.5-5.1)
[2019-11-26 05:44] LABS: Slide Review Slide Review Perform
[2019-11-26] MEDS: nicotine 14 mg Patch 1 PATCH TRANSDERMA (08:44)
[2019-11-26] MEDS: doxycycline 100 mg Tablet PO ×2 (08:44→17:20)
[2019-11-26] MEDS: pantoprazole DR 40 mg Tablet PO (08:46)
--- NOTE | 2019-11-26 09:47 | PC.CHAP ---
Pastoral Care Encounter/Spiritual Assessment Type of Contact [] Declined clergy member visit [] Patient/Family/Request visit [] Outpatient visit [] Follow-up visit [] Physician referral [] Code/Alert [] Routine visit [] Staff referral [] Actively dying [] Patient sleeping [] Family support [] [] Out of room [] Palliative care [] [] Receiving care in room [] Pre-surgical visit [] Trauma [] Long length of stay [] ICU visit [x] Other: Isolation Relational/Emotional Strength [] Patient feels connected with others/family/visitors/staff [] Distress [] Loneliness/isolation [] Abandonment Spirituality of Patient [] Person of Kathryn [] Attends Denominational of their Kathryn [] Believes in Prayer [] Reads Bible or Catholic materials [] There are Spiritual issues to be addressed Supervisor Doping Interventions [] Prayer [] Active listening [] Non-anxious presence [] Spiritual/emotional support [] Crisis/trauma care [] Spiritual counseling [] Bereavement support [] Provided bereavement packet [] Provided Bible/devotional materials [] Provided toy/stuffed animal, coloring book to patient or family member [] Provided Communion [] Anointing/[place] [] Salvation [x] Completed spiritual assessment [] Other: Impact on Illness or Injury [] Angry [] Fearful [] Anxious [] Often cries [] Exhaustion [] Unable to work [] Unable to attend jew [] Unable to walk/stand [] Unable to read [] Unable to drive [] Unable to eat/drink [] Unable to sleep [] Unable to be with family [] Patient intubated [] Other: Summary Time spent with patient
[2019-11-26 12:59] LABS: Lyme AB Screen <0.90 index
[2019-11-26 16:03] LABS: Basophils # 0.1 10^3/uL (0.0-0.1); Basophils % 0.4 %; Eosinophils % 0.2 %; Hematocrit 39.6 % (42.0-52.0); Hemoglobin 12.9 g/dL (11.7-16.6); Lymphocytes # 1.5 10^3/uL (0.8-4.8); Mean Corpuscular HGB Conc 32.6 g/dL (30.0-36.0); Mean Corpuscular Volume 95.2 fL (80-94); Mean Platelet Volume 14.7 fL (7.4-10.4); Monocytes # 1.8 10^3/uL (0.2-0.9); Monocytes % 7.1 %; Neutrophils # 20.96 10^3/uL (1.8-7.7); Neutrophils % 84.6 %; Nucleated Red Blood Cells % 0 %; Platelet Count 36 10^3/cmm (130-400); Red Blood Count 4.16 10^6/uL (4.1-5.3); White Blood Count 24.8 10^3/uL (4.0-10.0)
--- NOTE | 2019-11-26 19:06 | PM.PN ---
Subjective Subjective: Interval history: Patient is still quite ill-appearing, remains on isolation precautions pending COVID-19 test results. Noted increased leukocytosis today, improved sodium, normal renal function, continue transaminitis. He is hemodynamically stable, afebrile, on room air. Overnight spiked temperature as high as 102.9F and around noon spiked to 103 F temperature as well. Initial blood cultures are positive for gram-positive cocci, repeat set ordered. Urine culture is growing staph aureus so far. Will change antibiotics to vancomycin. Continued thrombocytopenia. Medications: Reviewed: Yes Medication Review Details: Active Medications Generic Name Dose Route Start Last Admin Trade Name Freq PRN Reason Stop Dose Admin Acetaminophen 650 mg 11/25/19 14:02 11/26/19 12:13 Tylenol PO 650 mg Q6H PRN Administration Mild Pain or incr eased temp Doxycycline Monohy drate 100 mg 11/25/19 18:00 11/26/19 17:20 Vibramycin PO 100 mg BID BENTLEY Administration Protocol Heparin Sodium (Be ef Lung) 5,000 unit 11/25/19 15:00 11/26/19 16:00 Heparin SUBCUT 5,000 unit Q12H BENTLEY Administration Potassium Chloride /Sodium Chloride 20 meq in 1,000 m ls @ 125 mls/hr 11/25/19 14:10 11/26/19 17:19 Sodium Chlor 0.9 % + Kcl 20 Meq IV 125 mls/hr .Q8H BENTLEY Administration Vancomycin HCl 1,2 50 mg/ 250 mls @ 200 mls /hr 11/26/19 15:30 11/26/19 16:00 Sodium Chloride IV 200 mls/hr Q8H BENTLEY Administration Protocol Lorazepam 1 mg 11/25/19 14:02 Ativan IVP Q6H PRN ANXIETY Nicotine 1 patch 11/25/19 14:10 11/26/19 08:44 Nicoderm 14 Mg P atch TRANSDERMA 1 patch DAILY BENTLEY Administration Ondansetron HCl 4 mg 11/25/19 14:02 Zofran IVP Q6H PRN NAUSEA AND VOMITI NG Pantoprazole Sodiu m 40 mg 11/26/19 09:00 11/26/19 08:46 Protonix PO 40 mg DAILY BENTLEY Administration No Known Allergies Allergy (Verified 11/25/19 11:06) Vitals/I&O/Wt Last Vital Signs Temp 99.6 F 11/26/19 16:53 Pulse 77 11/26/19 16:00 Resp 18 11/26/19 16:00 BP 135/69 11/26/19 16:00 Pulse Ox 97 11/26/19 11:55 11/26/19 11/26/19 11/26/19 06:59 14:59 22:59 Intake Total 1800 / 4040 1480 / 1480 1240 / 2720 Output Total 450 / 850 250 / 250 Balance 1350 / 3190 1480 / 1480 990 / 2470 Weight last 48 hrs Weight 105.233 kg Physical Exam Const: COMMON NORMALS: no acute distress, patient oriented x3 and alert GENERAL APPEARANCE: cooperative, ill appearing and diaphoretic NUTRITIONAL APPEARANCE: obese morbidly obese ORIENTATION/CONSCIOUSNESS: Yes awake HENMT: COMMON NORMALS: normocephalic, atraumatic, hearing grossly normal bilaterally and moist oral mucous membranes HEAD & SCALP: normocephalic and atraumatic Eye: COMMON NORMALS: Equal, round and reactive pupils present, EOMs intact bilaterally and conjunctivae normal CONJUNCTIVA: Yes conjunctivae normal PUPIL: Yes Equal, round and reactive pupils present Neck/C-Spine: COMMON NORMALS: full ROM GENERAL: Yes normal visual inspection and Yes trachea midline Resp: COMMON NORMALS: normal respiratory effort, No retractions, No use of accessory muscles and clear to auscultation bilaterally EFFORT & INSPECTION: Yes able to speak in complete sentences, Yes symmetric chest movement and No tachypneic AUSCULTATION: clear to auscultation bilaterally Cardio: COMMON NORMALS: regular rate, regular rhythm, S1 normal heart sound present, S2 normal heart sound present and No murmurs present (Cardio) RATE: regular rate RHYTHM: regular rhythm HEART SOUNDS: S1 normal heart sound present and S2 normal heart sound present GI: COMMON NORMALS: Normal to inspection, nondistended, normoactive bowel sounds present, Soft to palpation and non-tender PALPATION: Yes Soft to palpation Extremity: COMMON NORMALS: normal to inspection, full ROM and no clubbing, cyanosis or edema; negative for no pedal edema Neuro: COMMON NORMALS: patient oriented x3, moves all extremities, no focal motor deficits and no sensory deficits noted SENSORIUM/ORIENTATION: Yes alert Psych: COMMON NORMALS: mental status grossly normal, Normal thought process present, cooperative, normal affect and speech normal SPEECH: Yes normal speech THOUGHT PROCESS: Normal thought process present Skin: COMMON NORMALS: no rashes or lesions noted, no jaundice, no petechiae and no mottling GENERAL SKIN EXAM: no rashes or lesions noted Data : 11/26/19 15:40 11/26/19 03:56 Micro: Microbiology 11/26/19 15:46 Blood Culture - Preliminary Blood SPECIMEN COLLECTED 11/26/19 15:40 Blood Culture - Preliminary Blood SPECIMEN COLLECTED 11/25/19 11:06 Blood Culture - Preliminary Blood Gram positive cocci 11/25/19 11:22 Blood Culture - Preliminary Blood Gram positive cocci 11/25/19 11:58 Urine Culture - Preliminary Urine,Clean Catch Staphylococcus aureus A&P Assessment and plan (1) Fever: -Had persistent fever, diaphoresis, malaise for about 5 days -Unclear etiology at this time -Had been treated with a course of azithromycin due to suspicion for respiratory illness; previously tested for influenza and COVID 19 both of which were negative -Noted to have hyponatremia, transaminitis, hypokalemia, significant thrombocytopenia leukocytosis -Could be related to a viral illness versus tickborne illness -Tick panel pending -Received dose of doxycycline in ED, will continue this empirically -Chest x-ray unremarkable, head CT negative -COVID-19 testing ordered, isolation precautions -UA with noted hematuria -order D-dimer, lactic acid, TSH -blood cx: 4/4 bottles positive for gram-positive cocci in clusters, repeat set ordered. Will add vancomycin in light of this results for broader spectrum antibiotic coverage -LP can be considered if continued febrile illness, noted mental status changes. Due to presentation with headache, overall toxic appearance, bacteremia will add ceftriaxone for empiric coverage of meningitis Status: Acute Qualifiers: Fever type: unspecified Qualified Code(s): R50.9 - Fever, unspecified (2) Acute hyponatremia: -hypovolemic with noted decreased oral intake -trend Na; improving -IVF hydration Status: Acute (3) Thrombocytopenia: -Acute thrombocytopenia as previous platelet counts have been within normal limits -Seems to be related to acute illness -pending peripheral smear -No prior history of immunocompromise -continue to trend platelet count; stable so far -hold NSAIDs, ASA Status: Acute (4) Leukocytosis: -unclear etiology as workup so far unrevealing; noted to have neutrophilic predominance -empiric doxycycline due to suspicion of tick-borne illness, vancomycin added due to bacteremia -continue to trend WBC Status: Acute Qualifiers: Leukocytosis type: unspecified Qualified Code(s): D72.829 - Elevated white blood cell count, unspecified (5) Transaminitis: -Noted transaminitis -acute hepatitis panel negative -continue to trend LFTs -if persistent along with abdominal symptoms, may need imaging Status: Acute (6) Gram-positive bacteremia: -blood cx: 4/4 bottles positive for gram-positive cocci in clusters, repeat set ordered. Will add vancomycin in light of this results for broader spectrum antibiotic coverage Status: Acute Additional A&P Information -Hypokalemia; replaced IV and normalized; replace as needed -Obesity: BMI-32 kg/m2 -Chronic smoker, 1 PPD, nicotine replacement therapy -Physical deconditioning, due to acute illness with poor oral intake, hyponatremia -Dehydration; as noted above -Headache; resolved currently; pain control as needed -regular diet as tolerated -up with assist; PT evaluation due to c/o generalized weakness -DVT ppx with heparin -Dispo: home -Code status: FULL code Attestations Medical Necessity Statement*: Patient requires hospitalization for continued broad-spectrum IV antibiotics secondary to gram-positive bacteremia, sepsis. Time Spent in Patient Care: 16 - 35 minutes (>than 50% of time spent in counselling and/or direct pt care on unit). Coding Level of Care Code Acute Supervisor Process Testing for [facility] Diagnoses Fever R50.9 Fever type: unspecified Acute hyponatremia E87.1 Thrombocytopenia D69.6 Leukocytosis D72.829 Leukocytosis type: unspecified Transaminitis R74.0 Gram-positive bacteremia R78.81
[2019-11-26] MEDS: cefTRIAXone 2,000 MG in sodium chloride 0.9% (plus) 50 ML 100 MG IV (20:03)
[2019-11-26 20:35] LABS: Coronavirus Lab Test PTC Negative
[2019-11-27] VITALS: BP 118/65; PULSE 66; RESP 16; TEMP 36.7; O2SAT 96
[2019-11-27] MEDS: heparin 5,000 unit/mL INJ 1 mL 5000 UNIT SUBCUT (03:58)
[2019-11-27 04:00] VITALS: BP 116/73; PULSE 69; RESP 17; TEMP 36.8; O2SAT 97
[2019-11-27] MEDS: sodium chlor 0.9% + KCl 20 mEq 20 MEQ/1,000 ML BAG 125 MEQ IV ×2 (05:42→16:17)
[2019-11-27 05:46] LABS: Alanine Aminotransferase 32 U/L (0-41); Albumin Level 2.2 g/dL (3.5-5.2); Alkaline Phosphatase 166 IU/L (40-130); Anion Gap 13.3 (5-19); Aspartate Amino Transferase 32 U/L (0-40); Blood Urea Nitrogen 19 mg/dL (6-20); Calcium 7.4 mg/dL (8.5-10.5); Carbon Dioxide 20 mmol/L (22-29); Chloride 99 mmol/L (98-107); Globulin 2.6 g/dL (1.3-4.6); Glomerular Filtration Rate 90.4 mL/min (90-130); Glucose 108 mg/dL (65-115); Osmolality Calculated 265 mOsm/kg (285-295); Potassium 3.3 mmol/L (3.5-5.1); Sodium 129 mmol/L (136-145); Total Bilirubin 0.6 mg/dL (0.15-1.2); Total Protein 4.8 g/dL (6.6-8.7)
[2019-11-27] MEDS: cefTRIAXone 2,000 MG in sodium chloride 0.9% (plus) 50 ML 100 MG IV ×2 (06:31→18:35)
[2019-11-27 06:39] LABS: Hematocrit 35.2 % (42.0-52.0); Hemoglobin 12.4 g/dL (11.7-16.6); Mean Corpuscular HGB Conc 35.2 g/dL (30.0-36.0); Mean Corpuscular Hemoglobin 30.8 pg (28.0-34.0); Mean Corpuscular Volume 87.6 fL (80-94); Red Blood Count 4.02 10^6/uL (4.1-5.3); Red Cell Distribution Width 13.5 % (12.1-15.1); White Blood Count 20.7 10^3/uL (4.0-10.0)
[2019-11-27 06:45] LABS: Absolute Segmented Neutrophil 16.4 10/cmm (1.6-7.1); Lymphocytes 14 %; Monocytes Absolute 0.4 10^3/cmm (0.1-0.6); Segmented Neutrophils 79 %; Total Cells Counted 100 (0-100)
[2019-11-27 06:46] LABS: Absolute Neutrophil 17.4 10^3/cmm (1.4-6.5); Anisocytosis 1+; Giant Platelets Trace; Platelet Estimate Decreased (Normal); Poikilocytosis 1+
[2019-11-27 06:51] LABS: Platelet Count 24 10^3/cmm (130-400)
[2019-11-27 07:42] VITALS: BP 116/63; PULSE 66; RESP 16; TEMP 36.6; O2SAT 97
[2019-11-27] MEDS: nicotine 14 mg Patch 1 PATCH TRANSDERMA (08:06)
[2019-11-27] MEDS: pantoprazole DR 40 mg Tablet PO (08:07)
--- NOTE | 2019-11-27 10:18 | USCV_ITS ---
Chip Ramirez Age: 49 Gender: M : 1970 Exam Date: 11/27/2019 10:42 Ordering Phys: Katey Martinez MD Technologist: Rocío Sloan Exam Location: [facility] [place]_ Indication: Bacteremia BP: 116 / 63 HR: 69 Rhythm: Sinus Technical Quality: Adequate MEASUREMENTS (Male / Female) Normal Values 2D ECHO LV Diastolic Diameter PLAX 5.9 cm 4.2 - 5.9 / 3.9 - 5.3 cm LV Systolic Diameter PLAX 3.9 cm LV Chamber Size 6.7 cm IVS Diastolic Thickness 1.8 cm 0.6 - 1.0 / 0.6 - 0.9 cm IVS Systolic Thickness 2.3 cm LVPW Diastolic Thickness 1.5 cm 0.6 - 1.0 / 0.6 - 0.9 cm LVPW Systolic Thickness 1.9 cm RV Chamber Size 3.3 cm LVOT Diameter 2.3 cm LV Ejection Fraction 2D Teich 62.6 % LV Ejection Fraction MOD 2C 61.6 % LV Ejection Fraction 2C AL 61.2 % LA Diameter 3.3 cm LA Width 2.9 cm LA Height 5.8 cm RA Width 3.3 cm RA Height 6.5 cm Aorta at Sinotubular Diameter 3.3 cm M-MODE LV Diastolic Diameter MM 8.2 cm 4.2 - 5.9 / 3.9 - 5.3 cm LV Systolic Diameter MM 6.0 cm LV Ejection Fraction MM Teich 49.8 % IVS Diastolic Thickness MM 1.3 cm 0.6 - 1.0 / 0.6 - 0.9 cm IVS Systolic Thickness MM 1.2 cm LVPW Diastolic Thickness MM 1.5 cm 0.6 - 1.0 / 0.6 - 0.9 cm LVPW Systolic Thickness MM 2.4 cm RV Diastolic Diameter MM 1.2 cm Aortic Annulus Diameter 4.9 cm LA Ao Ratio MM 0.7 MV E Point Septal Separation 1.8 cm DOPPLER AV Peak Velocity 241.0 cm/s LVOT Peak Velocity 138.0 cm/s AV Area Cont Eq vti 2.3 cm squared AV Area Cont Eq pk 2.3 cm squared MV Area PHT 3.1 cm squared Mitral E to A Ratio 1.3 MV E' Velocity 11.0 cm/s Mitral E to MV E' Ratio 11.1 Mitral E to LV E' Lateral Ratio 10.0 Mitral E to LV E' Septal Ratio 12.7 TR Peak Velocity 243.0 cm/s TR Peak Gradient 23.7 mmHg TV Peak E Velocity 69.0 cm/s Right Atrial Pressure 3.0 mmHg Pulmonary Artery Systolic Pressu 26.6 mmHg PV Peak Velocity 79.0 cm/s RV Acceleration Time 0.1 s RV Ejection Time 0.3 s RV AcT/ET 0.4 FINDINGS Left Ventricle Normal left ventricular cavity size. Mild concentric left ventricular hypertrophy. Normal left ventricular systolic function. Left ventricular ejection fraction is estimated at 58 %. No diagnostic regional wall motion abnormalities. Normal diastolic function. Right Ventricle Normal right ventricular size and systolic function. Right ventricular systolic pressure 26.6 mmHg. Right Atrium Normal right atrial size. Left Atrium Mildly increased left atrial size. Mitral Valve Structurally normal mitral valve. No mitral valve stenosis. No significant mitral valve regurgitation. Aortic Valve Aortic valve not well visualized. Possibly tricuspid aortic valve. There is a possible small mobile echodensity on non coronary cusp of aortic valve. No aortic valve stenosis. At least moderate aortic valve regurgitation. Tricuspid Valve Structurally normal tricuspid valve. Pulmonic Valve Pulmonic valve not well visualized. No pulmonary valve stenosis. Trace pulmonary valve regurgitation. Pericardium No pericardial effusion. Aorta Dilated aortic root measured at 46 mm. Normal sized ascending aorta. CONCLUSIONS 1. Normal left ventricular cavity size and systolic function. Mild concentric left ventricular hypertrophy. Left ventricular ejection fraction is estimated at 58 %. No diagnostic regional wall motion abnormalities. Normal diastolic function. 2. There is a possible small mobile echodensity on non coronary cusp of aortic valve. 3. At least moderate aortic valve regurgitation. 4. Dilated aortic root measured at 46 mm. 5. This may represent vegetation on aortic valve. ALE is recommended for better assessment of aortic valve. Veronica Sher MD (Electronically Signed) Final Date: 27 November 2019 17:41 S
--- NOTE | 2019-11-27 10:19 | CTR_ITS ---
PROCEDURE INFORMATION: Exam: CT Chest Without and With Contrast Exam date and time: 11/27/2019 11:31 AM Age: 49 years old Clinical indication: Abdominal pain; Other: SOB; Additional info: Persistent bacteremia, generalized pain, high grade fever TECHNIQUE: Imaging protocol: Computed tomography of the chest without and with intravenous contrast. Radiation optimization: All CT scans at this facility use at least one of these dose optimization techniques: automated exposure control; mA and/or kV adjustment per patient size (includes targeted exams where dose is matched to clinical indication); or iterative reconstruction. Contrast material: OMNI 300; Contrast volume: 95 ml; Contrast route: INTRAVENOUS (IV); COMPARISON: No relevant prior studies available. RADIATION DOSE METRICS: Total DLP (mGy-cm): 3443.97 FINDINGS: Lungs: Scarring and/or atelectasis in the inferior segment of the lingula. Spiculated 4 mm pulmonary nodule, right upper lobe, axial series 3, image 26. Followup as discussed below. Pleural space: Mild bilateral pleural fluid collections. Heart: Moderate calcification in the mitral valve and/or mitral valve annulus. Aorta: Unremarkable. No aortic aneurysm. Lymph nodes: Unremarkable. No enlarged lymph nodes. Bones/joints: Unremarkable. No acute fracture. Soft tissues: Unremarkable. IMPRESSION: 1. Mild bilateral pleural fluid collections. 2. Spiculated 4 mm pulmonary nodule, right upper lobe, axial series 3, image 26. Followup as discussed below. 3. Moderate calcification in the mitral valve and/or mitral valve annulus. For patients at low risk (minimal or absent history of smoking and of other known risk factors), no routine follow-up is indicated. For patients at high risk (history of smoking or of other known risk factors), consider optional CT at 12 months. (Drea et al., Fleischner Society, 2017) PROCEDURE INFORMATION: Exam: CT Abdomen And Pelvis Without And With Contrast Exam date and time: 11/27/2019 11:31 AM Age: 49 years old Clinical indication: Abdominal pain; Other: SOB; Additional info: Persistent bacteremia, generalized pain, high grade fever TECHNIQUE: Imaging protocol: Computed tomography of the abdomen and pelvis without and with intravenous contrast. Radiation optimization: All CT scans at this facility use at least one of these dose optimization techniques: automated exposure control; mA and/or kV adjustment per patient size (includes targeted exams where dose is matched to clinical indication); or iterative reconstruction. Contrast material: OMNI 300; Contrast volume: 95 ml; Contrast route: INTRAVENOUS (IV); COMPARISON: No relevant prior studies available. RADIATION DOSE METRICS: Total DLP (mGy-cm): 3443.97 FINDINGS: Liver: Normal. No mass. Gallbladder and bile ducts: Normal. No calcified stones. No ductal dilation. Pancreas: Normal. No ductal dilation. Spleen: Moderate 15.5 x 14.2 splenomegaly. Multiple peripheral perfusion defects or low-density lesions in the spleen most consistent with embolic infarcts versus neoplasm versus infectious process. Mild inflammation in the left lateral pericolic gutter which may be secondary to splenic pathology. One or more accessory splenules. Adrenals: Normal. No mass. Kidneys and ureters: One or more peripheral wedge-shaped hypodense right renal perfusion defects consistent with right pyelonephritis. Stomach and bowel: Unremarkable. No obstruction. No mucosal thickening. Appendix: 2 mm appendicolith within otherwise unremarkable appendix. Intraperitoneal space: Unremarkable. No free air. No significant fluid collection. Retroperitoneal space: Inflammation in the right retroperitoneum and the region of the right ureter consistent with urinary tract infection. Vasculature: Calcification of the abdominal aorta and/or iliac arteries consistent with atherosclerotic vessel disease. One or more calcified pelvic phleboliths. 19 mm portal vein suggesting possible portal hypertension. One or more calcified pelvic phleboliths. Lymph nodes: Unremarkable. No enlarged lymph nodes. Bladder: Unremarkable as visualized. Reproductive: Unremarkable as visualized. Bones/joints: Unremarkable. No acute fracture. Soft tissues: Unremarkable. CT/CT chest abd pel wo/w con IMPRESSION: 1. Moderate 15.5 x 14.2 splenomegaly. 2. 19 mm portal vein suggesting possible portal hypertension. 3. Multiple peripheral perfusion defects or low-density lesions in the spleen most consistent with embolic infarcts versus neoplasm versus infectious process. 4. Inflammation in the right retroperitoneum and the region of the right ureter consistent with urinary tract infection. 5. Mild inflammation in the left lateral pericolic gutter which may be secondary to splenic pathology. 6. 2 mm appendicolith within otherwise unremarkable appendix. 7. One or more peripheral wedge-shaped hypodense right renal perfusion defects consistent with right pyelonephritis. Radiation Dose CTDIVOL = (mGy): DLP = 3443.97~3443.97 (mGy-cm)
--- NOTE | 2019-11-27 10:29 | P.PN_ITS ---
Subjective Subjective: Interval history: Patient continues to be persistently bacteremic with repeat set of blood cultures ordered yesterday groin gram-positive cocci in 2 out of 4 bottles. Initial blood cultures have resulted as staph aureus. Febrile with a T-max of 101F around 8 PM last night, has been afebrile since. Some improvement in leukocytosis the white count remains high at 20.7, stable hemoglobin and renal function, improvement in transaminitis, stable hyponatremia. COVID-19 negative, off isolation precautions. Will order repeat set of blood cultures, remains on vancomycin and ceftriaxone. Will order echo as well as CT of the chest, abdomen and pelvis to rule out occult abscess. May need lumbar puncture as well but no interventional radiology or neurology available to do this this weekend. Noted persistent thrombocytopenia with platelet count today dropped to 24. Will discontinue anticoagulation. Seen several times throughout the day including during visit with his in the afternoon, updated both of them on imaging findings, specifically CT chest, abdomen and pelvis report. Discussed echo findings with Dr. Sher, will plan on ALE on Friday. Overall patient has had a better day today. Medications: Reviewed: Yes Medication Review Details: Active Medications Generic Name Dose Route Start Last Admin Trade Name Freq PRN Reason Stop Dose Admin Acetaminophen 650 mg 11/25/19 14:02 11/26/19 20:22 Tylenol PO 650 mg Q6H PRN Administration Mild Pain or incr eased temp Doxycycline Monohy drate 100 mg 11/25/19 18:00 11/26/19 17:20 Vibramycin PO 100 mg BID BENTLEY Administration Protocol Heparin Sodium (Be ef Lung) 5,000 unit 11/25/19 15:00 11/27/19 03:58 Heparin SUBCUT 5,000 unit Q12H BENTLEY Administration Potassium Chloride /Sodium Chloride 20 meq in 1,000 m ls @ 125 mls/hr 11/25/19 14:10 11/27/19 05:42 Sodium Chlor 0.9 % + Kcl 20 Meq IV 125 mls/hr .Q8H BENTLEY Administration Vancomycin HCl 1,2 50 mg/ 250 mls @ 200 mls /hr 11/26/19 15:30 11/27/19 09:13 Sodium Chloride IV Infused Q8H BENTLEY Infusion Protocol Ceftriaxone Sodium 2,000 mg/ 50 mls @ 100 mls/ hr 11/26/19 19:30 11/27/19 07:01 Sodium Chloride IV Infused Q12H BENTLEY Infusion Protocol Lorazepam 1 mg 11/25/19 14:02 Ativan IVP Q6H PRN ANXIETY Nicotine 1 patch 11/25/19 14:10 11/27/19 08:06 Nicoderm 14 Mg P atch TRANSDERMA 1 patch DAILY BENTLEY Administration Ondansetron HCl 4 mg 11/25/19 14:02 Zofran IVP Q6H PRN NAUSEA AND VOMITI NG Pantoprazole Sodiu m 40 mg 11/26/19 09:00 11/27/19 08:07 Protonix PO 40 mg DAILY BENTLEY Administration No Known Allergies Allergy (Verified 11/25/19 11:06) Vitals/I&O/Wt Last Vital Signs Temp 97.9 F 11/27/19 07:42 Pulse 66 11/27/19 07:42 Resp 16 11/27/19 07:42 BP 116/63 11/27/19 07:42 Pulse Ox 97 11/27/19 07:42 11/26/19 11/27/19 11/27/19 22:59 06:59 14:59 Intake Total 1540 / 3020 2210 / 5230 600 / 600 Output Total 250 / 250 400 / 650 Balance 1290 / 2770 1810 / 4580 600 / 600 Weight last 48 hrs Weight 105.506 kg Physical Exam Const: COMMON NORMALS: no acute distress, patient oriented x3 and alert GENERAL APPEARANCE: cooperative and ill appearing (Less so today) NUTRITIONAL APPEARANCE: obese morbidly obese ORIENTATION/CONSCIOUSNESS: Yes awake HENMT: COMMON NORMALS: normocephalic, atraumatic, hearing grossly normal bilaterally and moist oral mucous membranes HEAD & SCALP: normocephalic and atraumatic MOUTH: moist mucous membranes abnormal Details: parched Eye: COMMON NORMALS: Equal, round and reactive pupils present, EOMs intact bilaterally and conjunctivae normal CONJUNCTIVA: Yes conjunctivae normal PUPIL: Yes Equal, round and reactive pupils present Neck/C-Spine: COMMON NORMALS: full ROM GENERAL: Yes normal visual inspection and Yes trachea midline Resp: COMMON NORMALS: normal respiratory effort, No retractions, No use of accessory muscles and clear to auscultation bilaterally EFFORT & INSPECTION: Yes able to speak in complete sentences, Yes symmetric chest movement and No tachypneic AUSCULTATION: clear to auscultation bilaterally Cardio: COMMON NORMALS: regular rate, regular rhythm, S1 normal heart sound present and S2 normal heart sound present RATE: regular rate RHYTHM: regular rhythm HEART SOUNDS: S1 normal heart sound present and S2 normal heart sound present GI: COMMON NORMALS: Normal to inspection, nondistended, normoactive bowel sounds present, Soft to palpation and non-tender PALPATION: Yes Soft to palpation Extremity: COMMON NORMALS: normal to inspection, full ROM and no clubbing, cyanosis or edema; negative for no pedal edema Neuro: COMMON NORMALS: patient oriented x3, moves all extremities, no focal motor deficits and no sensory deficits noted SENSORIUM/ORIENTATION: Yes alert Psych: COMMON NORMALS: mental status grossly normal, Normal thought process present, cooperative, normal affect and speech normal SPEECH: Yes normal speech THOUGHT PROCESS: Normal thought process present Skin: COMMON NORMALS: no rashes or lesions noted, no jaundice, no petechiae and no mottling GENERAL SKIN EXAM: no rashes or lesions noted Data : 11/27/19 05:12 11/27/19 05:12 Micro: Microbiology 11/26/19 15:46 Blood Culture - Preliminary Blood Gram positive cocci 11/26/19 15:40 Blood Culture - Preliminary Blood Gram positive cocci 11/25/19 11:22 Blood Culture - Preliminary Blood Staphylococcus aureus 11/25/19 11:06 Blood Culture - Preliminary Blood Staphylococcus aureus 11/25/19 11:58 Urine Culture - Final Urine,Clean Catch Staphylococcus aureus A&P Assessment and plan (1) Gram-positive bacteremia: --blood cx: 4/4 bottles positive for gram-positive cocci in clusters, rep eat set positive for GPC in 2/4 bottles, repeat set ordered. On vancomycin and Ceftriaxone -urine cx: Staph aureus -quite ill appearing -Echo: EF=58%, mild concentric LVH, no RWMA, possible small mobile echodensity on non-coronary cusp of aortic valve, at least moderate AR, trace NM, dilated aortic root. Needs ALE to r/o endocarditis; discussed with Dr. Sher, will plan on this on Tuesday 11/28 -CT scan of the chest, abdomen, pelvis with and without contrast done and reported as mild bilateral pleural fluid collections, spiculated 4 mm pulmonary nodule in the right upper lobe, moderate splenomegaly with multiple peripheral perfusion defects/low-density lesions most consistent with embolic infarcts versus neoplasm versus infectious process, mild inflammation in the left lateral pericolic gutter, 1 or more peripheral wedge-shaped hypodense right renal perfusion defects consistent with a right pyelonephritis, inflammation in the right retroperitoneum and region of the right ureter consistent with UTI -Difficult to localize source of infection due to overall toxic appearance and generalized pain -May need lumbar puncture if persistent febrile illness and complaints of headache or noted altered mental status. No in-house interventional radiology or neurology this week and to do this. For now we will continue empiric cov erage for meningitis with ceftriaxone and vancomycin Status: Acute (2) Fever: -Had persistent fever, diaphoresis, malaise for about 5 days -Unclear etiology at this time -Had been treated with a course of azithromycin due to suspicion for respiratory illness; previously tested for influenza and COVID 19 both of which were negative -Noted to have hyponatremia, transaminitis, hypokalemia, significant thrombocytopenia leukocytosis -Could be related to a viral illness versus tickborne illness but blood cultures show persistent gram-positive bacteremia -Tick panel pending -Received dose of doxycycline in ED -Chest x-ray unremarkable, head CT negative -COVID-19 test negative, off isolation precautions -UA with noted hematuria -noted D-dimer elevation; lactic acid, TSH wnl -blood cx: 4/4 bottles positive for gram-positive cocci in clusters, repeat set positive for GPC in 2/4 bottles, repeat set ordered. On vancomycin and Ceftriaxone -stool studies negative, FOBT negative, pending enteric parasite panel Status: Acute Qualifiers: Fever type: unspecified Qualified Code(s): R50.9 - Fever, unspecified (3) Acute hyponatremia: -hypovolemic with noted decreased oral intake -Stable Na; continue to trend -IVF hydration Status: Acute (4) Thrombocytopenia: -Acute thrombocytopenia as previous platelet counts have been within normal limits -Seems to be related to acute illness given timeline -pending peripheral smear -No prior history of immunocompromise; negative hepatitis panel, will need to check HIV, order NIEVES, anti-dsDNA, complement levels -continue to trend platelet count; d/c heparin due to worsening thrombocytopenia. There is a risk of continued thrombocytopenia with use of ceftriaxone and vancomycin but with current clinical picture benefits outweigh risk -continue to hold NSAIDs, ASA -may need platelet transfusion if levels < 10 and/or noted bleeding Status: Acute (5) Leukocytosis: -noted to have neutrophilic predominance -Persistent gram-positive bacteremia -continue vancomycin and ceftriaxone -continue to trend WBC Status: Acute Qualifiers: Leukocytosis type: unspecified Qualified Code(s): D72.829 - Elevated white blood cell count, unspecified (6) Transaminitis: -Noted transaminitis, normalized LFTs today -acute hepatitis panel negative -continue to trend LFTs -abdominal imaging ordered due to persistent bacteremia; will be useful to assess for hepatosplenomegaly as well if factor Status: Acute Additional A&P Information -Hypokalemia; replace as needed -Obesity: BMI-32 kg/m2 -Chronic smoker, 1 PPD, nicotine replacement therapy -Physical deconditioning, due to acute illness with poor oral intake, hyponatremia -Dehydration; as noted above -Headache; resolved; pain control as needed -regular diet as tolerated -up with assist; PT evaluation appreciated -DVT ppx with SCDs, no heparin due to worsening thrombocytopenia -Dispo: home -Code status: FULL code -In light of clinical picture, very low threshold for decompensation and transfer to ICU Attestations Medical Necessity Statement*: Patient requires hospitalization for continued management of persistent gram-positive bacteremia, dehydration, significant thrombocytopenia, hyponatremia, currently on broad-spectrum IV antibiotics, IV fluid hydration. Time Spent in Patient Care: 16 - 35 minutes (>than 50% of time spent in counselling and/or direct pt care on unit) . Coding Level of Care Code Acute Watch Repairer for [facility] Fwd Exam Comprehensive Diagnoses Gram-positive bacteremia R78.81 Fever R50.9 Fever type: unspecified Acute hyponatremia E87.1 Thrombocytopenia D69.6 Leukocytosis D72.829 Leukocytosis type: unspecified Transaminitis R74.0
[2019-11-27 11:47] LABS: Complement C3 65 mg/dL (90-180)
[2019-11-27 11:55] VITALS: BP 123/68; PULSE 72; RESP 18; TEMP 36.9; O2SAT 98
--- NOTE | 2019-11-27 12:15 | PC.NURSE ---
Patient finished contrast at this time.
[2019-11-27 12:16] LABS: INR 1.45 (0.8-1.2); Partial Thromboplastin Time 31.3 SECONDS (23.9-36.7)
[2019-11-27 12:17] LABS: Fibrinogen 401 mg/dL (184-529)
[2019-11-27] MEDS: iohexol 300 mg/mL 100 mL Btl IV (12:49)
[2019-11-27] MEDS: iohexol 300 mg/mL 50 mL Btl PO (12:50)
[2019-11-27] MEDS: potassium chloride ER 10 mEq Tablet 40 MEQ PO (13:23)
[2019-11-27 15:49] LABS: Vancomycin Trough 15.7 ug/mL (10-15)
[2019-11-27 15:56] VITALS: BP 131/70; PULSE 69; RESP 16; TEMP 37.5; O2SAT 97
[2019-11-27 20:00] VITALS: BP 128/76; PULSE 75; RESP 18; TEMP 37.2; O2SAT 97
[2019-11-28] VITALS: BP 124/72; PULSE 76; RESP 17; TEMP 37.3; O2SAT 98
[2019-11-28 04:00] VITALS: BP 129/71; PULSE 66; RESP 17; TEMP 36.5; O2SAT 98
[2019-11-28] MEDS: sodium chlor 0.9% + KCl 20 mEq 20 MEQ/1,000 ML BAG 125 MEQ IV ×2 (05:13→13:17)
[2019-11-28 06:17] LABS: Basophils % 0.2 %; Eosinophils % 0.1 %; Hematocrit 34.6 % (42.0-52.0); Hemoglobin 12.1 g/dL (11.7-16.6); Lymphocytes # 1.9 10^3/uL (0.8-4.8); Mean Corpuscular Hemoglobin 31.3 pg (28.0-34.0); Mean Corpuscular Volume 89.6 fL (80-94); Monocytes # 1.7 10^3/uL (0.2-0.9); Monocytes % 9.9 %; Neutrophils # 13.47 10^3/uL (1.8-7.7); Neutrophils % 77.3 %; Nucleated Red Blood Cells % 0 %; Platelet Count 43 10^3/cmm (130-400); Red Blood Count 3.86 10^6/uL (4.1-5.3); Red Cell Distribution Width 14.1 % (12.1-15.1); White Blood Count 17.4 10^3/uL (4.0-10.0)
[2019-11-28 06:35] LABS: Alanine Aminotransferase 52 U/L (0-41); Albumin Level 2.2 g/dL (3.5-5.2); Alkaline Phosphatase 161 IU/L (40-130); Anion Gap 13.9 (5-19); Aspartate Amino Transferase 53 U/L (0-40); Blood Urea Nitrogen 27 mg/dL (6-20); Calcium 7.7 mg/dL (8.5-10.5); Carbon Dioxide 18 mmol/L (22-29); Chloride 102 mmol/L (98-107); Globulin 2.8 g/dL (1.3-4.6); Glomerular Filtration Rate 64.9 mL/min (90-130); Glucose 101 mg/dL (65-115); Osmolality Calculated 267 mOsm/kg (285-295); Potassium 3.9 mmol/L (3.5-5.1); Sodium 130 mmol/L (136-145); Total Bilirubin 0.6 mg/dL (0.15-1.2)
[2019-11-28 07:56] VITALS: BP 138/69; PULSE 66; RESP 16; TEMP 36.7; O2SAT 97
[2019-11-28] MEDS: cefTRIAXone 2,000 MG in sodium chloride 0.9% (plus) 50 ML 100 MG IV ×2 (09:02→20:40)
[2019-11-28] MEDS: pantoprazole DR 40 mg Tablet PO (09:03)
[2019-11-28] MEDS: potassium chloride ER 10 mEq Tablet 40 MEQ PO (09:03)
[2019-11-28] MEDS: nicotine 14 mg Patch 1 PATCH TRANSDERMA (09:03)
--- NOTE | 2019-11-28 11:12 | P.CONIM_ITS ---
Providers/Reason For Consult Consulting Physican/Specialty*: Dr. Acuña, Cardiology Reason for Consult*: Staph aureus bacteremia, r/o endocarditis Attending Physician: Katey Martinez MD Primary Care Provider: Dr. Alexandra History of Present Illness History of Present Illness Chip Ramirez is a 49 year old male with no significant past medical history, not on any medication who was hospitalized with a 10 day history of not feeling well, fever, malaise, weakness and headache. No UTI like symptoms, no recent sick contacts, no recent injuries or dental infections. He does complain of few episodes of diarrhea. No hemaochezia, jo or hematemesis. No CP, orthopnea, PND or leg swelling. He had echo that showed thickening and calcification of aortic valve with moderate AI and suspicious echodensity on aortic valve. His blooc Cx 2 sets on 2 occasions grew staphylococcus aureus. I have been asked to evaluate the patient for ALE. He denies any complaints at the [facility]. Review of Systems General: Reports: 10 or more systems reviewed and unremarkable except in HPI and below Const: Reports: fever(s), chills, body aches and malaise ENMT: Denies: nasal discharge or nasal congestion Card: Denies: chest pain, palpitations or dyspnea on exertion Resp: Denies: productive cough GI: Denies: abdominal pain : Denies: hematuria Musc: Reports: extremity swelling (right foot swelling) Skin/Breast: Denies: rash Neuro: Denies: headache(s) or weakness in extremities Psych: Denies: anxiety or depression Endo: Denies: tired all the time Robert/Lymph: Denies: petechiae or purpura Meds/Allergies Home Medications and Allergies Home Medications Medication Instructions Recorded Confirmed Last Taken Type albuterol sulfate 90 mcg/actuation 2 puff INHALATION Q6H PRN #8.5 gm 11/20/19 11/25/19 Unknown Rx aerosol inhaler aspirin 81 mg tablet,delayed 81 mg PO DAILY 11/20/19 11/25/19 11/24/19 History release azithromycin 250 mg tablet See Rx Instructions PO .COMPLEX #6 11/20/19 11/25/19 11/24/19 Rx tab lrzqvydrnvxtqil-swughwtxjnzwloj-TS 7.5 ml PO Q6H PRN #160 ml 11/20/19 11/25/19 11/23/19 Rx 2 mg-30 mg-10 mg/5 mL oral syrup omega-3 fatty acids 1,000 mg 1,000 mg PO DAILY 11/20/19 11/25/19 11/24/19 History capsule vitamin B complex 1 tab PO DAILY 11/20/19 11/25/19 11/24/19 History myjczewjgc-ytpvtgrvkgpcn-wdhq 1 tab PO Q4H PRN 11/25/19 11/25/19 Unknown History ibuprofen 800 mg PO PRN 11/25/19 11/25/19 11/24/19 History ondansetron HCl [Zofran] 4 mg PO Q6H PRN 11/25/19 11/25/19 Unknown History Allergies Allergy/AdvReac Type Severity Reaction Status Date / Time No Known Allergies Allergy Verified 11/25/19 11:06 Current Medications Current Medications Generic Name Dose Route Start Last Admin Trade Name Freq PRN Reason Stop Dose Admin Acetaminophen 650 mg 11/25/19 14:02 11/26/19 20:22 Tylenol PO 650 mg Q6H PRN Administration Mild Pain or increased temp Doxycycline Monohydrate 100 mg 11/25/19 18:00 11/26/19 17:20 Vibramycin PO 100 mg BID BENTLEY Administration Protocol Heparin Sodium (Beef Lung) 5,000 unit 11/25/19 15:00 11/27/19 03:58 Heparin SUBCUT 5,000 unit Q12H BENTLEY Administration Potassium Chloride/Sodium Chloride 20 meq in 1,000 mls @ 125 mls/hr 11/25/19 14:10 11/28/19 05:13 Sodium Chlor 0.9% + Kcl 20 Meq IV 125 mls/hr .Q8H BENTLEY Administration Vancomycin HCl 1,250 mg/ 250 mls @ 200 mls/hr 11/26/19 15:30 11/28/19 06:30 Sodium Chloride IV 200 mls/hr Q8H BENTLEY Administration Protocol Ceftriaxone Sodium 2,000 mg/ 50 mls @ 100 mls/hr 11/26/19 19:30 11/28/19 09:02 Sodium Chloride IV 100 mls/hr Q12H BENTLEY Administration Protocol Nicotine 1 patch 11/25/19 14:10 11/28/19 09:03 Nicoderm 14 Mg Patch TRANSDERMA 1 patch DAILY BENTLEY Administration Pantoprazole Sodium 40 mg 11/26/19 09:00 11/28/19 09:03 Protonix PO 40 mg DAILY BENTLEY Administration Potassium Chloride 40 meq 11/27/19 10:35 11/28/19 09:03 Klor-Con 10 PO 40 meq DAILY BENTLEY Administration PFSH Acute 2 PFSH: Medical History (Updated 11/28/19 @ 19:17 by Veronica Sher MD) Essential hypertension Heart murmur, systolic Palpitation Surgical History No pertinent past surgical history Family History Other CAD (coronary artery disease) Cancer Diabetes Social History Smoking and tobacco status: current every day smoker cigarettes Packs smoked per day: 1 Quit status (tobacco): not considering quitting Alcohol intake: current Alcohol intake frequency: few times a month Substance/Drug Use: never Household members: family Marital status: Current occupational status: employed 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 History of recent travel: No Current gender identity: Male Vitals/I&O/Wt Last Vital Signs Temp 98.1 F 11/28/19 07:56 Pulse 66 11/28/19 07:56 Resp 16 11/28/19 07:56 BP 138/69 11/28/19 07:56 Pulse Ox 97 11/28/19 07:56 11/27/19 11/28/19 11/28/19 22:59 06:59 14:59 Intake Total 600 / 2200 1250 / 3450 240 / 240 Output Total 600 / 1300 200 / 1500 Balance 0 / 900 1050 / 1950 240 / 240 Weight last 48 hrs Weight 233 lb 4.8 oz Weight 232 lb 9.6 oz Physical Exam Const: COMMON NORMALS: no acute distress, average body habitus, patient oriented x3, alert and well nourished GENERAL APPEARANCE: cooperative, comfortable, well kempt and well developed ORIENTATION/CONSCIOUSNESS: Yes oriented to person, Yes oriented to place and Yes oriented to time HENMT: COMMON NORMALS: normocephalic, atraumatic, hearing grossly normal bilaterally, external ears normal, Normal external nose present, moist oral mucous membranes and oropharynx normal HEAD & SCALP: normocephalic and atraumatic FACE & SINUS: face symmetric NOSE: Normal external nose present EXTERNAL EAR: Yes external ears normal Eye: COMMON NORMALS: Equal, round and reactive pupils present, EOMs intact bilaterally and conjunctivae normal ALIGNMENT: Yes alignment normal CONJUNCTIVA: Yes conjunctivae normal SCLERA: sclerae normal PUPIL: Yes Equal, round and reactive pupils present Neck/C-Spine: COMMON NORMALS: supple and no JVD; negative for No carotid bruits GENERAL: Yes trachea midline Lymph: LYMPHATIC: No no lymphadenopathy noted Chest: COMMONS NORMALS: normal inspection of the chest Resp: COMMON NORMALS: clear to auscultation bilaterally AUSCULTATION: clear to auscultation bilaterally, no crackles, no rales, no rhonchi and no wheezes Cardio: COMMON NORMALS: no JVD, regular rate, regular rhythm, S1 normal heart sound present, S2 normal heart sound present and Peripheral pulses 2+ throughout; negative for No gallops present (Cardio) and negative for No clicks present (Cardio) JUGULAR VENOUS DISTENTION: no JVD PALPATION: normal PMI, no heave, no palpable S3, no palpable S4 and no thrill RATE: regular rate RHYTHM: regular rhythm HEART SOUNDS: S1 normal heart sound present, S2 normal heart sound present, no click, no gallops and no murmurs BRUITS: no abdominal aortic bruits and no carotid bruits PERIPHERAL PULSES: Peripheral pulses 2+ throughout GI: COMMON NORMALS: Normal to inspection, nondistended, normoactive bowel sounds present, Soft to palpation and non-tender PALPATION: Yes Soft to palpation RECTAL EXAM: Yes deferred Back/Pelvis: LUMBAR SPINE/LOWER BACK: Yes normal to inspection Neuro: COMMON NORMALS: patient oriented x3 and no focal motor deficits SENSORIUM/ORIENTATION: Yes alert, Yes oriented to person, Yes oriented to place and Yes oriented to time Psych: COMMON NORMALS: Normal thought process present APPEARANCE: Yes well kempt MOOD & AFFECT: Yes euthymic mood THOUGHT PROCESS: Normal thought process present ATTENTION/CONCENTRATION: Yes attention grossly intact MEMORY/COGNITION: Yes memory grossly intact Data Micro: Micro: Microbiology 11/25/19 11:06 Blood Culture - Pr eliminary Blood Staphylococcus aureus 11/27/19 13:20 Enteric Pathogens (PCR) - Final Stool Routine Col lection Parasite Antigen P zain - Final C.difficile Toxin B Gene (PCR) - Fin al Occult Blood (FIT) - Final 11/26/19 15:46 Blood Culture - Pr eliminary Blood Gram positive c occi 11/26/19 15:40 Blood Culture - Pr eliminary Blood Gram positive c occi 11/27/19 11:30 Blood Culture - Pr eliminary Blood SPECIMEN COLLEC KIESHA 11/27/19 11:30 Blood Culture - Pr eliminary Blood SPECIMEN COLLEC KIESHA 11/25/19 11:22 Blood Culture - Pr eliminary Blood Staphylococcus aureus 11/25/19 11:58 Urine Culture - Fi nal Urine,Clean Catch Staphylococcus aureus A&P Assessment and plan (1) Gram-positive bacteremia: Risks and benefits were discussed with the patients. Alternate management options were discussed with the patient as well. Possible complications were reviewed with the patient as well. Plan is to proceed for the procedure at the earliest. -Plan for ALE in morning. Status: Acute (2) Acute hyponatremia: Status: Acute (3) Transaminitis: Status: Acute (4) Aortic regurgitation: Probably moderate AI Status: Acute Consult Attestations Medical Necessity Statement: As per primart team Coding Level of Care Code Acute [employer] Automatic for Chg Fwd Exam Comprehensive Diagnoses Gram-positive bacteremia R78.81 Acute hyponatremia E87.1 Transaminitis R74.0 Aortic regurgitation I35.1
[2019-11-28 11:38] VITALS: BP 131/49; PULSE 69; RESP 18; TEMP 36.9; O2SAT 98
[2019-11-28 12:10] LABS: C Reactive Protein 158.7 mg/L (0.0-4.9)
--- NOTE | 2019-11-28 13:26 | P.PN_ITS ---
Subjective Subjective: Interval history: Afebrile since 11/25, normotensive, HR controlled, had 400 mL urine output overnight. Decreasing leukocytosis, stable hemoglobin, improved platelet count, slight worsening in renal function and liver function. Had 5 BMs yesterday, primarily loose. Seen with Dr. Sher, plan for ALE tomorrow, less ill appearing today, concerned about some redness and swelling on his R foot, otherwise no complaints. Explained he will need to be NPO after midnight for ALE. Medications: Reviewed: Yes Medication Review Details: Active Medications Generic Name Dose Route Start Last Admin Trade Name Freq PRN Reason Stop Dose Admin Acetaminophen 650 mg 11/25/19 14:02 11/26/19 20:22 Tylenol PO 650 mg Q6H PRN Administration Mild Pain or incr eased temp Doxycycline Monohy drate 100 mg 11/25/19 18:00 11/26/19 17:20 Vibramycin PO 100 mg BID BENTLEY Administration Protocol Heparin Sodium (Be ef Lung) 5,000 unit 11/25/19 15:00 11/27/19 03:58 Heparin SUBCUT 5,000 unit Q12H BENTLEY Administration Potassium Chloride /Sodium Chloride 20 meq in 1,000 m ls @ 125 mls/hr 11/25/19 14:10 11/28/19 13:17 Sodium Chlor 0.9 % + Kcl 20 Meq IV 125 mls/hr .Q8H BENTLEY Administration Vancomycin HCl 1,2 50 mg/ 250 mls @ 200 mls /hr 11/26/19 15:30 11/28/19 06:30 Sodium Chloride IV 200 mls/hr Q8H BENTLEY Administration Protocol Ceftriaxone Sodium 2,000 mg/ 50 mls @ 100 mls/ hr 11/26/19 19:30 11/28/19 09:02 Sodium Chloride IV 100 mls/hr Q12H BENTLEY Administration Protocol Lorazepam 1 mg 11/25/19 14:02 Ativan IVP Q6H PRN ANXIETY Nicotine 1 patch 11/25/19 14:10 11/28/19 09:03 Nicoderm 14 Mg P atch TRANSDERMA 1 patch DAILY BENTLEY Administration Ondansetron HCl 4 mg 11/25/19 14:02 Zofran IVP Q6H PRN NAUSEA AND VOMITI NG Pantoprazole Sodiu m 40 mg 11/26/19 09:00 11/28/19 09:03 Protonix PO 40 mg DAILY BENTLEY Administration Potassium Chloride 40 meq 11/27/19 10:35 11/28/19 09:03 Klor-Con 10 PO 40 meq DAILY BENTLEY Administration No Known Allergies Allergy (Verified 11/25/19 11:06) Vitals/I&O/Wt Last Vital Signs Temp 98.4 F 11/28/19 11:38 Pulse 69 11/28/19 11:38 Resp 18 11/28/19 11:38 BP 131/49 11/28/19 11:38 Pulse Ox 98 11/28/19 11:38 11/27/19 11/28/19 11/28/19 22:59 06:59 14:59 Intake Total 600 / 2200 1250 / 3450 1240 / 1240 Output Total 600 / 1300 200 / 1500 400 / 400 Balance 0 / 900 1050 / 1950 840 / 840 Weight last 48 hrs Weight 105.823 kg Weight 105.506 kg Physical Exam 2 Const: COMMON NORMALS: no acute distress, patient oriented x3 and alert GENERAL APPEARANCE: cooperative and ill appearing (Less so today) NUTRITIONAL APPEARANCE: obese morbidly obese ORIENTATION/CONSCIOUSNESS: Yes awake HENMT: COMMON NORMALS: normocephalic, atraumatic, hearing grossly normal bilaterally and moist oral mucous membranes HEAD & SCALP: normocephalic and atraumatic MOUTH: moist mucous membranes abnormal Details: parched Eye: COMMON NORMALS: Equal, round and reactive pupils present, EOMs intact bilaterally and conjunctivae normal CONJUNCTIVA: Yes conjunctivae normal PUPIL: Yes Equal, round and reactive pupils present Neck/C-Spine: COMMON NORMALS: full ROM GENERAL: Yes normal visual inspection and Yes trachea midline Resp: COMMON NORMALS: normal respiratory effort, No retractions, No use of accessory muscles and clear to auscultation bilaterally EFFORT & INSPECTION: Yes able to speak in complete sentences, Yes symmetric chest movement and No tachypneic AUSCULTATION: clear to auscultation bilaterally Cardio: COMMON NORMALS: regular rate, regular rhythm, S1 normal heart sound present and S2 normal heart sound present RATE: regular rate RHYTHM: regular rhythm HEART SOUNDS: S1 normal heart sound present, S2 normal heart sound present and Clicking heart sound present GI: COMMON NORMALS: Normal to inspection, nondistended, normoactive bowel sounds present, Soft to palpation and non-tender PALPATION: Yes Soft to palpation Extremity: COMMON NORMALS: normal to inspection, full ROM and no clubbing, cyanosis or edema NARRATIVE EXTREMITY EXAM: -minimal edema of R foot (dorsum), discrete area of erythema Neuro: COMMON NORMALS: patient oriented x3, moves all extremities, no focal motor deficits and no sensory deficits noted SENSORIUM/ORIENTATION: Yes alert Psych: COMMON NORMALS: mental status grossly normal, Normal thought process present, cooperative, normal affect and speech normal SPEECH: Yes normal speech THOUGHT PROCESS: Normal thought process present Skin: COMMON NORMALS: no rashes or lesions noted, no jaundice, no petechiae and no mottling GENERAL SKIN EXAM: no rashes or lesions noted Data : 11/28/19 05:25 11/28/19 05:25 Micro: Microbiology 11/27/19 11:30 Blood Culture - Preliminary Blood NEGATIVE TO DATE 11/27/19 11:30 Blood Culture - Preliminary Blood NEGATIVE TO DATE 11/25/19 11:06 Blood Culture - Preliminary Blood Staphylococcus aureus 11/27/19 13:20 Enteric Pathogens (PCR) - Final Stool Routine Collection Parasite Antigen Panel - Final C.difficile Toxin B Gene (PCR) - Final Occult Blood (FIT) - Final 11/26/19 15:46 Blood Culture - Preliminary Blood Gram positive cocci 11/26/19 15:40 Blood Culture - Preliminary Blood Gram positive cocci 11/25/19 11:22 Blood Culture - Preliminary Blood Staphylococcus aureus A&P Assessment and plan (1) Gram-positive bacteremia: -blood cx (11/24): 4/4 bottles positive for gram-positive cocci in clusters, repeat set (11/25) positive for GPC in 2/4 bottles, repeat set (11/26) prelim negative. On vancomycin and Ceftriaxone -urine cx: Staph aureus -quite ill appearing -Echo: EF=58%, mild concentric LVH, no RWMA, possible small mobile echodensity o n non-coronary cusp of aortic valve, at least moderate AR, trace UT, dilated aortic root. Needs ALE to r/o endocarditis; discussed with Dr. Sher, will plan on this on Tuesday 11/28 -CT scan of the chest, abdomen, pelvis with and without contrast done and reported as mild bilateral pleural fluid collections, spiculated 4 mm pulmonary nodule in the right upper lobe, moderate splenomegaly with multiple peripheral perfusion defects/low-density lesions most consistent with embolic infarcts versus neoplasm versus infectious process, mild inflammation in the left lateral pericolic gutter, 1 or more peripheral wedge-shaped hypodense right renal perfusion defects consistent with a right pyelonephritis, inflammation in the right retroperitoneum and region of the right ureter consistent with UTI -Difficult to localize source of infection due to overall toxic appearance and generalized pain -May need lumbar puncture if persistent febrile illness and complaints of headache or noted altered mental status. No in-house interventional radiology or neurology this week and to do this. For now we will continue empiric coverage for meningitis with ceftriaxone and vancomycin Status: Acute (2) Fever: -Had persistent fever, diaphoresis, malaise for about 5 days -Unclear etiology at this time -Had been treated with a course of azithromycin due to suspicion for respiratory illness; previously tested for influenza and COVID 19 both of which were negative -Noted to have hyponatremia, transaminitis, hypokalemia, significant thrombocytopenia leukocytosis -Could be related to a viral illness versus tickborne illness but blood cultures show persistent gram-positive bacteremia -Tick panel pending -Received dose of doxycycline in ED -Chest x-ray unremarkable, head CT negative -COVID-19 test negative, off isolation precautions -UA with noted hematuria -noted D-dimer elevation; lactic acid, TSH wnl -blood cx (11/24): 4/4 bottles positive for gram-positive cocci in clusters, repeat set (11/25) positive for GPC in 2/4 bottles, repeat set (11/26) prelim negative. On vancomycin and Ceftriaxone -stool studies negative including C.difficile, FOBT negative Status: Acute Qualifiers: Fever type: unspecified Qualified Code(s): R50.9 - Fever, unspecified (3) Acute hyponatremia: -hypovolemic with noted decreased oral intake -Stable Na; continue to trend -IVF hydration Status: Acute (4) Thrombocytopenia: -Acute thrombocytopenia as previous platelet counts have been within n ormal limits -Seems to be related to acute illness given timeline -pending peripheral smear -No prior history of immunocompromise; negative hepatitis panel, pending NIEVES, anti-dsDNA, complement levels low; order HIV after discussion with patient -continue to trend platelet count; d/c heparin due to worsening thrombocytopenia. There is a risk of continued thrombocytopenia with use of ceftriaxone and vancomycin but with current clinical picture benefits outweigh risk -continue to hold NSAIDs, ASA -may need platelet transfusion if levels < 10 and/or noted bleeding Status: Acute (5) Leukocytosis: -noted to have neutrophilic predominance, trending down -Persistent gram-positive bacteremia -continue vancomycin and ceftriaxone -continue to trend WBC Status: Acute Qualifiers: Leukocytosis type: unspecified Qualified Code(s): D72.829 - Elevated white blood cell count, unspecified (6) Transaminitis: -Noted transaminitis -acute hepatitis panel negative -continue to trend LFTs -abdominal imaging ordered due to persistent bacteremia; noted above Status: Acute Additional A&P Information -Hypokalemia; resolved, replace as needed -Obesity: BMI-32 kg/m2 -Chronic smoker, 1 PPD, nicotine replacement therapy -Physical deconditioning, due to acute illness with poor oral intake, hyponatremia -Dehydration; as noted above -Headache; resolved; pain control as needed -regular diet as tolerated -up with assist; PT evaluation appreciated -DVT ppx with SCDs, no heparin due to worsening thrombocytopenia -Dispo: home -Code status: FULL code -In light of clinical picture, very low threshold for decompensation and transfer to ICU Attestations Medical Necessity Statement*: Patient requires hospitalization for continued IV antibiotics secondary to gram-positive bacteremia, pending ALE for further evaluation of possible endocarditis, low threshold for decompensation requiring further monitoring of hemodynamic status. Time Spent in Patient Care: 16 - 35 minutes (>than 50% of time spent in counselling and/or direct pt care on unit) . Coding Level of Care Code Acute Room Service Server for [facility] Fwd Exam Comprehensive Diagnoses Gram-positive bacteremia R78.81 Fever R50.9 Fever type: unspecified Acute hyponatremia E87.1 Thrombocytopenia D69.6 Leukocytosis D72.829 Leukocytosis type: unspecified Transaminitis R74.0
[2019-11-28 15:36] VITALS: BP 136/79; PULSE 71; RESP 16; TEMP 36.9; O2SAT 99
[2019-11-28 19:44] VITALS: BP 129/66; PULSE 67; RESP 18; TEMP 36.8; O2SAT 98
[2019-11-29] VITALS (10 sets, daily range): BP systolic 104–147; BP diastolic 47–85; PULSE 60–83; RESP 16–24; TEMP 36–37.1; O2SAT 96–100
[2019-11-29] MEDS: sodium chlor 0.9% + KCl 20 mEq 20 MEQ/1,000 ML BAG 125 MEQ IV ×3 (00:03→21:55)
[2019-11-29] MEDS: acetaminophen 325 mg Tablet 650 MG PO (03:33)
--- NOTE | 2019-11-29 06:00 | USCV_ITS ---
Chip Ramirez Age: 49 Gender: M : 1970 Exam Date: 11/29/2019 07:46 Ordering Phys: Katey Martinez MD Technologist: Maritza Li [place] [facility] [place]ication: Staph aureus bacteremia, r/o Aortic valve endocarditis BP: 135 / 70 HR: 62 Rhythm: Sinus Technical Quality: Adequate MEASUREMENTS (Male / Female) Normal Values 2D ECHO LVOT Diameter 2.1 cm Medications IV sedation by anesthesia. Please refer to separate report for details. Height: 6 feet, Weight: 249 lb. Complications Patient tolerated procedure well. The patient was transferred to the floor in satisfactory condition. Proc. Components A 2D transesophageal echocardiogram with Doppler and color-flow Doppler was performed. The patient was brought to the ALE examination room in a fasting state after obtaining an informed consent. The ALE probe was passed into the posterior pharynx , mid-esophagus, distal esophagus, and gastric fundus. ALE was performed at multiple levels. FINDINGS Left Ventricle Normal left ventricular size, systolic function and wall thickness, with no regional wall motion abnormalities. Left ventricular ejection fraction is estimated at 60%. Right Ventricle Normal right ventricular size and systolic function. Right Atrium Normal right atrial size. Prominent eustachian valve. Left Atrium Normal left atrial size. LA Appendage Normal left atrial appendage. Normal flow velocities in the left atrial appendage. No thrombus visualized in the left atrial appendage. IA Septum Normal interatrial septum. No evidence for an atrial septal defect. Tiny patent foramen ovale. Mitral Valve Structurally normal mitral valve. No mitral valve stenosis. Trace mitral valve regurgitation. Aortic Valve Thickened and calcified aortic valve. Bicuspid aortic valve (Type 1 with one raphe). No aortic valve stenosis. There is a coaptation defect. Mild to moderate eccentric anteriorly directed aortic valve regurgitation. Tricuspid Valve Structurally normal tricuspid valve. Trace tricuspid valve regurgitation. Pulmonic Valve Structurally normal pulmonic valve. Trace pulmonary valve regurgitation. Pericardium No pericardial effusion. Aorta Dilated aortic root measured at 49 mm anteroposteriorly at sinus of Valsalva. Aortic measured at sinotubular junction of 37 mm. Ascending aorta measured 41 mm. No evidence of aortic aneurysm or dissection. CONCLUSIONS 1. Normal left ventricular size, systolic function and wall thickness, with no regional wall motion abnormalities. Left ventricular ejection fraction is estimated at 60%. 2. Normal right ventricular size and systolic function. 3. Bicuspid aortic valve (Type 1 with one raphe). There is a coaptation defect. Mild to moderate eccentric anteriorly directed aortic valve regurgitation. 4. Tiny patent foramen ovale. 5. No prior similar studies to compare. Veronica Sher MD (Electronically Signed) Final Date: 02 December 2019 16:37 S
[2019-11-29 07:04] LABS: Basophils % 0.1 %; Eosinophils % 0.2 %; Hematocrit 30.9 % (42.0-52.0); Hemoglobin 10.6 g/dL (11.7-16.6); Lymphocytes # 2.1 10^3/uL (0.8-4.8); Mean Corpuscular HGB Conc 34.3 g/dL (30.0-36.0); Mean Corpuscular Volume 90.4 fL (80-94); Mean Platelet Volume 13.6 fL (7.4-10.4); Monocytes # 1.2 10^3/uL (0.2-0.9); Monocytes % 10.2 %; Neutrophils # 8.56 10^3/uL (1.8-7.7); Neutrophils % 70.9 %; Nucleated Red Blood Cells % 0 %; Red Blood Count 3.42 10^6/uL (4.1-5.3); Red Cell Distribution Width 14.5 % (12.1-15.1); White Blood Count 12.1 10^3/uL (4.0-10.0)
[2019-11-29 07:17] LABS: Alanine Aminotransferase 142 U/L (0-41); Alkaline Phosphatase 151 IU/L (40-130); Anion Gap 15.4 (5-19); Aspartate Amino Transferase 132 U/L (0-40); Blood Urea Nitrogen 39 mg/dL (6-20); Calcium 6.7 mg/dL (8.5-10.5); Carbon Dioxide 16 mmol/L (22-29); Chloride 106 mmol/L (98-107); Globulin 2.9 g/dL (1.3-4.6); Glomerular Filtration Rate 43.4 mL/min (90-130); Glucose 102 mg/dL (65-115); Osmolality Calculated 274 mOsm/kg (285-295); Potassium 4.4 mmol/L (3.5-5.1); Sodium 133 mmol/L (136-145); Total Bilirubin 0.4 mg/dL (0.15-1.2); Total Protein 4.9 g/dL (6.6-8.7)
[2019-11-29 07:42] LABS: Platelet Count 77 10^3/cmm (130-400); Slide Review Slide Review Perform
[2019-11-29] MEDS: sodium chloride 0.9% 1,000 ML 30 ML IV (07:43)
--- NOTE | 2019-11-29 07:55 | ANES.PREANE2 ---
Pre-Anesthetic Assessment Pre-Anesthetic Assessment: Height/Weight: Height 1.83 m Weight 113.115 kg Temp Pulse Resp BP Pulse Ox 97.2 F L 67 18 147/72 98 11/29/19 07:41 11/29/19 07:41 11/29/19 07:41 11/29/19 07:41 11/29/19 07:41 Preop Diagnosis: r/o endocarditis Proposed Procedure: ALE Operation Date: 11/29/19 07:00 Proposed Procedures p ALE(Not Applicable) - Veronica Sher MD Familial anesthetic complications: na Was Beta Solis taken within 24 hours: N/A Last intake: 2329 Last Intake: 23:30 Social: Social History: Tobacco and No alcohol (2-3 beer week) Packs per day: 1 Pack years: 40 Pulmonary: Pulmonary: Cough and SOB CV/HEM: CV/HEM: Murmur Comments: DX 1 year ago : : None reported Hepatic: Hepatic: None reported GI: GI: None reported Metabolic: Metabolic: None reported Musc/skel: Musc/skel: None reported Neuropsych: Neuropsych: None reported Anesthetic Plan: ASA status: 3 Anesthesia: Anesthesia Evaluation and MAC Risk of > 500 ml blood loss (7ml/kg in children): No Meds/Allergies Current Medications: Current Medications Generic Name Dose Route Start Last Admin Trade Name Freq PRN Reason Stop Dose Admin Acetaminophen 650 mg 11/25/19 14:02 11/29/19 03:33 Tylenol PO 650 mg Q6H PRN Administration Mild Pain or incr eased temp Doxycycline Monohy drate 100 mg 11/25/19 18:00 11/26/19 17:20 Vibramycin PO 100 mg BID BENTLEY Administration Protocol Heparin Sodium (Be ef Lung) 5,000 unit 11/25/19 15:00 11/27/19 03:58 Heparin SUBCUT 5,000 unit Q12H [facility] Administration Potassium Chloride /Sodium Chloride 20 meq in 1,000 m ls @ 125 mls/hr 11/25/19 14:10 11/29/19 00:03 Sodium Chlor 0.9 % + Kcl 20 Meq IV 125 mls/hr .Q8H BENTLEY Administration Vancomycin HCl 1,2 50 mg/ 250 mls @ 200 mls /hr 11/26/19 15:30 11/29/19 06:33 Sodium Chloride IV 200 mls/hr Q8H [facility] Administration Protocol Ceftriaxone Sodium 2,000 mg/ 50 mls @ 100 mls/ hr 11/26/19 19:30 11/28/19 20:40 Sodium Chloride IV 100 mls/hr Q12H [facility] Administration Protocol Sodium Chloride 1,000 mls @ 30 ml s/hr 11/29/19 07:45 11/29/19 07:43 Sodium Chloride 0.9% IV 11/30/19 07:44 30 mls/hr .Q24H [facility] Administration Nicotine 1 patch 11/25/19 14:10 11/28/19 09:03 Nicoderm 14 Mg P atch TRANSDERMA 1 patch DAILY [facility] Administration Pantoprazole Sodiu m 40 mg 11/26/19 09:00 11/28/19 09:03 Protonix PO 40 mg DAILY [facility] Administration Potassium Chloride 40 meq 11/27/19 10:35 11/28/19 09:03 Klor-Con 10 PO 40 meq DAILY [facility] Administration PFSH Anesthesia PFSH: Medical History (Updated 11/28/19 @ 19:17 by Veronica Sher MD) Essential hypertension Heart murmur, systolic Palpitation Surgical History No pertinent past surgical history Family History Other CAD (coronary artery disease) Cancer Diabetes Social History Smoking and tobacco status: current every day smoker cigarettes Packs smoked per day: 1 Quit status (tobacco): not considering quitting Alcohol intake: current Alcohol intake frequency: few times a month Substance/Drug Use: never Household members: family Marital status: Current occupational status: employed 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 History of recent travel: No Current gender identity: Male Data Anesthesia CBC & Chem 7: 11/29/19 06:45 11/29/19 06:45 Other Labs: Laboratory Results - last 48 hr 11/27/19 11/27/19 11/27/19 05:12 11:45 14:31 WBC RBC Hgb Hct MCV MCH MCHC RDW Plt Count MPV Neut % (Auto) Lymph % (Auto) [place] % (Auto) Eos % (Auto) Baso % (Auto) Neut # (Auto) Lymph # (Auto) [place] # (Auto) Eos # (Auto) Baso # (Auto) Nucleated RBC % (auto) Nucleated RBCs # PT 18.20 H INR 1.45 H APTT 31.3 Fibrinogen 401 Sodium Potassium Chloride Carbon Dioxide Anion Gap BUN Creatinine GFR Calculation Glucose Calculated Osmolality Calcium Total Bilirubin AST ALT Alkaline Phosphatase C-Reactive Protein Total Protein Albumin Globulin Vancomycin Trough 15.7 H Complement C3 65 L Complement C4 6 L 11/28/19 11/28/19 11/29/19 05:25 05:25 06:45 WBC 17.4 H 12.1 H RBC 3.86 L 3.42 L Hgb 12.1 10.6 L Hct 34.6 L 30.9 L MCV 89.6 90.4 MCH 31.3 31.0 MCHC 35.0 34.3 RDW 14.1 14.5 Plt Count 43 L 77 L MPV 14.0 H 13.6 H Neut % (Auto) 77.3 70.9 Lymph % (Auto) 11.0 17.0 [place] % (Auto) 9.9 10.2 Eos % (Auto) 0.1 0.2 Baso % (Auto) 0.2 0.1 Neut # (Auto) 13.47 H 8.56 H Lymph # (Auto) 1.9 2.1 [place] # (Auto) 1.7 H 1.2 H Eos # (Auto) 0.0 0.0 Baso # (Auto) 0.0 0.0 Nucleated RBC % (auto) 0 0 Nucleated RBCs # 0.0 0.0 PT INR APTT Fibrinogen Sodium 130 L Potassium 3.9 Chloride 102 Carbon Dioxide 18 L Anion Gap 13.9 BUN 27 H Creatinine 1.2 GFR Calculation 64.9 L Glucose 101 Calculated Osmolality 267 L Calcium 7.7 L Total Bilirubin 0.6 AST 53 H ALT 52 H Alkaline Phosphatase 161 H C-Reactive Protein 158.7 H Total Protein 5.0 L Albumin 2.2 L Globulin 2.8 Vancomycin Trough Complement C3 Complement C4 11/29/19 06:45 WBC RBC Hgb Hct MCV MCH MCHC RDW Plt Count MPV Neut % (Auto) Lymph % (Auto) [place] % (Auto) Eos % (Auto) Baso % (Auto) Neut # (Auto) Lymph # (Auto) [place] # (Auto) Eos # (Auto) Baso # (Auto) Nucleated RBC % (auto) Nucleated RBCs # PT INR APTT Fibrinogen Sodium 133 L Potassium 4.4 Chloride 106 Carbon Dioxide 16 L Anion Gap 15.4 BUN 39 H Creatinine 1.7 H GFR Calculation 43.4 L Glucose 102 Calculated Osmolality 274 L Calcium 6.7 L Total Bilirubin 0.4 AST 132 H ALT 142 H Alkaline Phosphatase 151 H C-Reactive Protein Total Protein 4.9 L Albumin 2.0 L Globulin 2.9 Vancomycin Trough Complement C3 Complement C4 Micro: Microbiology 11/27/19 11:30 Blood Culture - Preliminary Blood NEGATIVE TO DATE 11/27/19 11:30 Blood Culture - Preliminary Blood NEGATIVE TO DATE 11/25/19 11:06 Blood Culture - Preliminary Blood Staphylococcus aureus Cardiac Studies: No Data to Display
[2019-11-29 07:56] LABS: INR 1.09 (0.8-1.2)
--- NOTE | 2019-11-29 08:36 | PC.NURSE ---
8ml NS AND 2ML AIR MIXED INJECTED THROUGH IV DURING ALE PER DR ORDERS TO CREATE BUBBLES THROUGH HEART. PROCEDURE WAS TOLERATED WELL
--- NOTE | 2019-11-29 08:49 | ANE.PACU2 ---
Inpatient post-anesthesia follow up: Airway intact: Yes Vital signs: Temperature 98.1 F Pulse Rate [Monito r] 101 Pulse Rate 83 Respiratory Rate 16 Blood Pressure [Ri ght Arm] 130/70 Blood Pressure 108/59 Pulse Oximetry 98 Oxygen Delivery Me thod Oxymask Oxygen Flow Rate 8 Fraction of Inspir ed Oxygen Hydration adequate: Yes Nausea and vomiting: No Pain level: 1
--- NOTE | 2019-11-29 10:23 | PM.PN ---
Subjective Subjective: Interval history: No new complaints. Plan for procedure later today. No overnight acute events. Medications: Reviewed: Yes Medication Review Details: Current Medications Acetaminophen (Tylenol) 650 mg PO Q6H PRN PRN Reason: Mild Pain or increased temp Last Admin: 11/29/19 03:33 Dose: 650 mg Documented by: Albuterol Sulfate (Albuterol) 2.5 mg INHALATION ONCE PRN PRN Reason: WHEEZING Doxycycline Monohydrate (Vibramycin) 100 mg PO BID [facility]; Protocol Last Admin: 11/29/19 17:31 Dose: 100 mg Documented by: Famotidine (Pepcid Inj) 20 mg IVP ONCE PRN PRN Reason: HEARTBURN Fentanyl (Sublimaze) 50 mcg IVP Q10M PRN PRN Reason: Preop Pain Fentanyl (Sublimaze) 100 mcg IVP ONCE PRN PRN Reason: Per anesthesia for block Heparin Sodium (Beef Lung) (Heparin) 5,000 unit SUBCUT Q12H [facility] Last Admin: 11/29/19 13:11 Dose: Not Given Documented by: Potassium Chloride/Sodium Chloride (Sodium Chlor 0.9% + Kcl 20 Meq) 20 meq in 1,000 mls @ 125 mls/hr IV .Q8H [facility] Last Admin: 11/29/19 13:32 Dose: 125 mls/hr Documented by: Sodium Chloride (Sodium Chloride 0.9%) 1,000 mls @ 30 mls/hr IV .Q24H [facility] Stop: 11/30/19 07:44 Last Infusion: 11/29/19 08:51 Dose: Infused Documented by: Nafcillin Sodium 1,000 mg/ (Sodium Chloride) 50 mls @ 100 mls/hr IV Q4H [facility] Last Admin: 11/29/19 17:32 Dose: 100 mls/hr Documented by: Ipratropium [place] (Atrovent Neb) 0.5 mg INHALATION ONCE PRN PRN Reason: WHEEZING Lidocaine HCl (Lidocaine 1%) 0.1 ml INTRADERMA PRN PRN PRN Reason: anesthetic prior to IV start Stop: 11/30/19 07:35 Lidocaine HCl (Lidocaine 2% Viscous) 1 ml TOPICAL PRN PRN PRN Reason: Anesthetic prior to IV start Lorazepam (Ativan) 1 mg IVP Q6H PRN PRN Reason: ANXIETY Metoclopramide HCl (Reglan) 10 mg IVP ONCE PRN PRN Reason: N/V if zofran ineffective Midazolam HCl (Versed) 2 mg IVP Q5M PRN PRN Reason: Preop Anxiety Midazolam HCl (Versed) 5 mg IVP ONCE PRN PRN Reason: Per anesthesia for block Nicotine (Nicoderm 14 Mg Patch) 1 patch TRANSDERMA DAILY [facility] Last Admin: 11/28/19 09:03 Dose: 1 patch Documented by: Ondansetron HCl (Zofran) 4 mg IVP Q6H PRN PRN Reason: NAUSEA AND VOMITING Ondansetron HCl (Zofran) 4 mg IVP Q5M PRN PRN Reason: NAUSEA AND VOMITING Pantoprazole Sodium (Protonix) 40 mg PO DAILY [facility] Last Admin: 11/28/19 09:03 Dose: 40 mg Documented by: Potassium Chloride (Klor-Con 10) 40 meq PO DAILY [facility] Last Admin: 11/28/19 09:03 Dose: 40 meq Documented by: Scopolamine (Transderm-Scop) 1 patch TRANSDERMA ONCE PRN PRN Reason: Nausea/ Vomiting Prophylaxis Vitals/I&O/Wt Last Vital Signs Temp 98.1 F 11/29/19 08:45 Pulse 71 11/29/19 08:56 Resp 18 11/29/19 08:56 BP 104/47 11/29/19 08:56 Pulse Ox 99 11/29/19 08:56 11/28/19 11/29/19 11/29/19 22:59 06:59 14:59 Intake Total 1490 / 3030 250 / 3280 400 / 400 Balance 1490 / 2630 250 / 2880 400 / 400 Weight last 48 hrs Weight 249 lb 6 oz Weight 233 lb 4.8 oz Physical Exam Const: COMMON NORMALS: no acute distress, average body habitus, patient oriented x3, alert and well nourished GENERAL APPEARANCE: cooperative, comfortable, well kempt and well developed ORIENTATION/CONSCIOUSNESS: Yes oriented to person, Yes oriented to place and Yes oriented to time HENMT: COMMON NORMALS: normocephalic, atraumatic, hearing grossly normal bilaterally, external ears normal and Normal external nose present HEAD & SCALP: normocephalic and atraumatic FACE & SINUS: face symmetric NOSE: Normal external nose present EXTERNAL EAR: Yes external ears normal Eye: COMMON NORMALS: Equal, round and reactive pupils present, EOMs intact bilaterally and conjunctivae normal ALIGNMENT: Yes alignment normal CONJUNCTIVA: Yes conjunctivae normal SCLERA: sclerae normal PUPIL: Yes Equal, round and reactive pupils present Neck/C-Spine: COMMON NORMALS: supple and no JVD; negative for No carotid bruits Lymph: LYMPHATIC: No no lymphadenopathy noted Chest: COMMONS NORMALS: normal inspection of the chest Resp: COMMON NORMALS: clear to auscultation bilaterally AUSCULTATION: clear to auscultation bilaterally, no crackles, no rales, no rhonchi and no wheezes Cardio: COMMON NORMALS: no JVD, regular rate, regular rhythm, S1 normal heart sound present and S2 normal heart sound present; negative for No gallops present (Cardio) and negative for No clicks present (Cardio) JUGULAR VENOUS DISTENTION: no JVD PALPATION: normal PMI, no heave, no palpable S3, no palpable S4 and no thrill RATE: regular rate RHYTHM: regular rhythm HEART SOUNDS: S1 normal heart sound present, S2 normal heart sound present, no gallops and Murmur heart sound present diastolic Location: right sternal border (grade 2/6) BRUITS: no carotid bruits Neuro: COMMON NORMALS: patient oriented x3 and no focal motor deficits SENSORIUM/ORIENTATION: Yes alert, Yes oriented to person, Yes oriented to place and Yes oriented to time Psych: COMMON NORMALS: Normal thought process present APPEARANCE: Yes well kempt MOOD & AFFECT: Yes euthymic mood THOUGHT PROCESS: Normal thought process present Data : 11/29/19 06:45 11/29/19 06:45 Micro: Microbiology 11/26/19 15:40 Blood Culture - Final Blood Staphylococcus aureus 11/26/19 15:46 Blood Culture - Final Blood Staphylococcus aureus 11/25/19 11:06 Blood Culture - Final Blood Staphylococcus aureus 11/25/19 11:22 Blood Culture - Final Blood Staphylococcus aureus 11/27/19 11:30 Blood Culture - Preliminary Blood NEGATIVE TO DATE 11/27/19 11:30 Blood Culture - Preliminary Blood NEGATIVE TO DATE A&P Assessment and plan (1) Gram-positive bacteremia: MSSA sepsis: No evidence of endocarditis based on the study. - ALE was done this morning. -antibiotics as per primary team The findings of the study were discussed in detail with the patient and his Caroline. Status: Acute (2) Acute hyponatremia: Status: Acute (3) Transaminitis: Status: Acute (4) Aortic regurgitation: Probably moderate AI Status: Acute Qualifiers: Cardiac valve disease etiology: nonrheumatic Qualified Code(s): I35.1 - Nonrheumatic aortic (valve) insufficiency Additional A&P Information Thrombocytopenia MARTHA Attestations Medical Necessity Statement*: As per primary team Procedures Time out/Consent Time Out Performed: Yes Consent for Procedure: Consent obtained from patient Procedure Narrative ALE Indication: Staph aureus bacteremia r/o endocarditis Intubation: Easy, attempts x 2, Blood on probe post procedure. Prelim finding: Normal LV function. Bicuspid aortic valve with eccentric mild to moderate AI. No evidence of aortic valve vegetation. Full report to follow. Initial recovery in GI lab and then patient ws transferred to the med surg floor. Coding Level of Care Code Acute Cable Placer for g Fwd Diagnoses Gram-positive bacteremia R78.81 Acute hyponatremia E87.1 Transaminitis R74.0 Aortic regurgitation I35.1 Cardiac valve disease etiology: nonrheumatic
[2019-11-29 13:09] LABS: Anti-Nuclear Antibody Screen NEGATIVE (NEGATIVE)
[2019-11-29 15:35] LABS: Anti-Double Strand DNA AB <1 IU/mL
--- NOTE | 2019-11-29 16:03 | P.PN_ITS ---
Subjective Subjective: Interval history: ALE reported negative today for vegetations, leukocytosis trending down to 12, plt count improving, kidney function stable. blood cx from 11/26 thus far remains negative to date Medications: Reviewed: Yes Vitals/I&O/Wt Last Vital Signs Temp 97.7 F 11/29/19 15:49 Pulse 66 11/29/19 15:49 Resp 16 11/29/19 15:49 BP 147/85 11/29/19 15:49 Pulse Ox 100 11/29/19 15:49 11/29/19 11/29/19 11/29/19 06:59 14:59 22:59 Intake Total 250 / 3280 1640 / 1640 Output Total 300 / 300 Balance 250 / 2880 1340 / 1340 Weight last 48 hrs Weight 113.115 kg Weight 105.823 kg Physical Exam Narrative: EXAM NARRATIVE: GEN: Awake, alert and oriented, no acute distress CVS: S1S2 N RS: CTA B/L Abd: Soft, nt/nd , bs+ DRUG SAFETY ASSISTANT: no focal neuro deficits Data : 11/29/19 06:45 11/29/19 06:45 Micro: Microbiology 11/26/19 15:40 Blood Culture - Final Blood Staphylococcus aureus 11/26/19 15:46 Blood Culture - Final Blood Staphylococcus aureus 11/25/19 11:06 Blood Culture - Final Blood Staphylococcus aureus 11/25/19 11:22 Blood Culture - Final Blood Staphylococcus aureus 11/27/19 11:30 Blood Culture - Preliminary Blood NEGATIVE TO DATE 11/27/19 11:30 Blood Culture - Preliminary Blood NEGATIVE TO DATE A&P Assessment and plan (1) Gram-positive bacteremia: -blood cx (11/24): 4/4 bottles positive for gram-positive cocci in clusters identified as MSSA, repeat set (11/25) positive for MSSA in 2/4 bottles, repeat set (11/26) prelim negative. - Discontinue ceftriaxone and vancomycin - start nafcillin 1g iv q4h for targetted MSSA treatment -Echo: EF=58%, mild concentric LVH, no RWMA, possible small mobile echodensity on non-coronary cusp of aortic valve, at least moderate AR, trace MI, dilated aortic root. s/p ALE today without any evidence of vegetation. -Soirce of bacteremia remains unclear at this point. ALE as above. Denies any h/o joint replacements or oether orthopedic hardware. Denies any indwelling IV lines. No recurrent SSTIs. CTAP with splenomegaly and renal hypodense lesions with perfusion defects which likely represent septic embolization. No other chest or abdominal source appears apparent. Will proceed with MR imaging of the spine to evaluate for osteomyelitis/discitis. Avoid CT imaging with contrast given MARTHA. Denies any IVDU. - Plan to treat with AT LEAST 6 weeks of iv antibiotics source for complicated endovascular s.aureus infection with likely embolization. Picc line placement to facilitate above once cx definitely negative at 72 hrs. Planned discharge home on iv nafcillin via infusion pump vs cefazolin depending on insurance approval. Will need weekly follow up labs while undergoing the above rx. Status: Acute (2) Fever: - secondary to S. aureus septicemia -Noted to have hyponatremia, transaminitis, hypokalemia, significant thrombocytopenia leukocytosis likely as a result of septicemia. Some suspicion for tickborne illness, thus far negative for Lyme. Covid 19 testing negative -Tick panel pending -stool studies negative including C.difficile, FOBT negative Status: Acute Qualifiers: Fever type: unspecified Qualified Code(s): R50.9 - Fever, unspecified (3) Acute hyponatremia: -hypovolemic with noted decreased oral intake -Stable Na; continue to trend -IVF hydration Status: Acute (4) Thrombocytopenia: -Acute thrombocytopenia as previous platelet counts have been within normal limits, likely related to splenic embolization -Seems to be related to acute illness given timeline -pending peripheral smear -No prior history of immunocompromise; negative hepatitis panel, pending NIEVES, anti-dsDNA, complement levels low; HIV check in am labs -continue to trend platelet count; d/c heparin due to worsening thrombocytopenia. There is a risk of continued thrombocytopenia with use of neafcillin but with current clinical picture benefits outweigh risk -continue to hold NSAIDs, ASA -may need platelet transfusion if levels < 10 and/or noted bleeding Status: Acute (5) Leukocytosis: -noted to have neutrophilic predominance, trending down -Persistent gram-positive bacteremia Status: Acute Qualifiers: Leukocytosis type: unspecified Qualified Code(s): D72.829 - Elevated w kelly blood cell count, unspecified (6) Transaminitis: -Noted transaminitis -acute hepatitis panel negative -continue to trend LFTs Status: Acute Additional A&P Information -Hypokalemia; resolved, replace as needed -Obesity: BMI-32 kg/m2 -Chronic smoker, 1 PPD, nicotine replacement therapy -Physical deconditioning, due to acute illness with poor oral intake, hyponatremia -Dehydration; as noted above -Headache; resolved; pain control as needed -regular diet as tolerated -up with assist; PT evaluation appreciated -DVT ppx with SCDs, no heparin due to worsening thrombocytopenia -Dispo: home -Code status: FULL code Attestations Medical Necessity Statement*: pending picc placement, clinical improvement, MR imaging Coding Level of Care Code Acute International Affairs Vice President for Chg Fwd Diagnoses Gram-positive bacteremia R78.81 Fever R50.9 Fever type: unspecified Acute hyponatremia E87.1 Thrombocytopenia D69.6 Leukocytosis D72.829 Leukocytosis type: unspecified Transaminitis R74.0
[2019-11-29 16:06] LABS: Vancomycin Trough 42.8 ug/mL (10-15)
[2019-11-29] MEDS: doxycycline 100 mg Tablet PO (17:31)
--- NOTE | 2019-11-29 21:51 | PC.NURSE ---
first dose of naficillin scanned and admin at 1802 but never infused due to tubing being clamped. Realized during attempt of second bag admin which was supposed to be admin at 2099. called pharm and advised by Edwina to run the previous bag and non admin the bag for 2100. Proceed as normal for next scheduled bag.
[2019-11-30] VITALS (7 sets, daily range): BP systolic 133–164; BP diastolic 63–75; PULSE 66–78; RESP 16–20; TEMP 36.4–37.1; O2SAT 96–99; BMI 33.8
[2019-11-30 05:09] LABS: Basophils % 0.3 %; Eosinophils # 0.1 10^3/uL (0.0-0.8); Eosinophils % 0.8 %; Hematocrit 32.1 % (42.0-52.0); Hemoglobin 10.2 g/dL (11.7-16.6); Lymphocytes # 2.5 10^3/uL (0.8-4.8); Lymphocytes % 21.5 %; Mean Corpuscular HGB Conc 31.8 g/dL (30.0-36.0); Mean Corpuscular Hemoglobin 30.5 pg (28.0-34.0); Mean Corpuscular Volume 96.1 fL (80-94); Mean Platelet Volume 12.8 fL (7.4-10.4); Monocytes # 1.4 10^3/uL (0.2-0.9); Monocytes % 11.7 %; Neutrophils # 7.35 10^3/uL (1.8-7.7); Neutrophils % 63.9 %; Nucleated Red Blood Cells % 0 %; Platelet Count 116 10^3/cmm (130-400); Red Blood Count 3.34 10^6/uL (4.1-5.3); Red Cell Distribution Width 14.8 % (12.1-15.1); White Blood Count 11.5 10^3/uL (4.0-10.0)
[2019-11-30 05:30] LABS: Alanine Aminotransferase 112 U/L (0-41); Albumin Level 2.1 g/dL (3.5-5.2); Alkaline Phosphatase 132 IU/L (40-130); Blood Urea Nitrogen 49 mg/dL (6-20); Calcium 7.2 mg/dL (8.5-10.5); Carbon Dioxide 16 mmol/L (22-29); Chloride 104 mmol/L (98-107); Globulin 2.5 g/dL (1.3-4.6); Glomerular Filtration Rate 29.2 mL/min (90-130); Glucose 99 mg/dL (65-115); Osmolality Calculated 268 mOsm/kg (285-295); Sodium 130 mmol/L (136-145); Total Bilirubin 0.4 mg/dL (0.15-1.2); Total Protein 4.6 g/dL (6.6-8.7)
[2019-11-30 05:35] LABS: Anion Gap 15.3 (5-19); Aspartate Amino Transferase 64 U/L (0-40); Potassium 5.3 mmol/L (3.5-5.1)
[2019-11-30 06:41] LABS: HIV 1 & 2 Antibody Non-Reactive (Non-Reactiv); HIV 1 & 2 Antigen Non-Reactive (Non-Reactiv)
[2019-11-30] MEDS: pantoprazole DR 40 mg Tablet PO (07:50)
[2019-11-30] MEDS: nicotine 14 mg Patch 1 PATCH TRANSDERMA (07:50)
[2019-11-30] MEDS: doxycycline 100 mg Tablet PO (07:50)
[2019-11-30] MEDS: sodium chlor 0.9% + KCl 20 mEq 20 MEQ/1,000 ML BAG 125 MEQ IV (07:50)
[2019-11-30] MEDS: potassium chloride ER 10 mEq Tablet 40 MEQ PO (07:50)
--- NOTE | 2019-11-30 10:59 | MR_ITS ---
WS: [id number] MRI THORACIC SPINE WITHOUT CONTRAST TECHNIQUE: Sagittal T1, T2 and STIR imaging. Axial T2 imaging. Noncontrast imaging obtained. CLINICAL INFORMATION: evalute for discitis/OM COMPARISON: None. FINDINGS: Mild thoracic kyphosis. Mild chronic anterior wedging in the mid thoracic spine at T5-T7. Disc space narrowing worse at T6-7. No acute appearing compression fractures. Normal CSF pulsation artifact in t he dorsal spinal canal. Moderate facet arthropathy in the lower thoracic spine. No evidence of discit is or osteomyelitis. Incidental hemangioma T12. MR/MR thoracic spin wo con* [id number] IMPRESSION: No evidence of discitis or osteomyelitis.
--- NOTE | 2019-11-30 10:59 | MR_ITS ---
WS: [id number] MRI LUMBAR SPINE NONCONTRAST TECHNIQUE: Sagittal T1, T2 and STIR imaging. Axial T1 and T2 imaging. CLINICAL INFORMATION: evalute for discitis/OM COMPARISON: None. FINDINGS: Mild lumbar curve. No acute compression. Incidental hemangioma T12 vertebral body. Normal bone marrow signal lumbar spine and partially visualized sacrum. No evidence of discitis or osteomyelitis. L1-L2: No significant disc bulging. Mild facet arthropathy. L2-L3: No significant disc bulging. Mild to moderate facet arthropathy. L3-L4: No significant disc bulging. Moderate facet arthropathy. Spinal canal and foramen are patent. L4-L5: Mild annular bulging with narrowing of the subarticular recess bilaterally. Moderate facet art hropathy with small facet effusions. Tiny left annular fissure with mild left and no significant righ t foraminal narrowing. L5-S1: Tiny right pericentral protrusion slightly contacts the traversing right S1 nerve root. Tiny a nnular fissure. Mild left and no significant right foraminal narrowing. Visualized pelvic bony structures: Normal. Paravertebral soft tissues: Normal. MR/MR lumbar spine wo con* [id number] IMPRESSION: 1. Normal bone marrow signal in the lumbar spine. No evidence of discitis or o steomyelitis. 2. Tiny right pericentral disc protrusion L5-S1 slightly contacts the traversi ng right S1 nerve root.
--- NOTE | 2019-11-30 10:59 | MR_ITS ---
WS: [id number] MRI CERVICAL SPINE NONCONTRAST TECHNIQUE: Sagittal T1, T2 and STIR imaging. Axial T2, gradient, and fiesta imaging. CLINICAL INFORMATION: evalute for discitis/OM COMPARISON: None. FINDINGS: Normal cervical alignment. Mild cervical curve. No high-grade central canal narrowing. Cord signal is normal. Normal bone marrow signal in the cervical spine. No evidence of discitis or osteomyelitis in the cervical spine. C2-C3: Normal. C3-C4: Normal. C4-C5: Normal. C5-C6: Mild disc bulging with tiny central protrusion. Spinal canal and foramen are patent. Mild face t arthropathy. C6-C7: Mild disc bulging with slight effacement of ventral thecal sac. Mild left and no significant r ight foraminal narrowing. Spinal canal is patent. C7-T1: Normal. T1-T2: Normal. Visualized brain stem structures: Normal. Prevertebral soft tissues: Normal. MR/MR cervical spin wo con* [id number] IMPRESSION: No evidence of discitis or osteomyelitis
[2019-11-30] MEDS: LORazepam 2 mg/mL INJ 1 mL 1 MG IVP (13:26)
--- NOTE | 2019-11-30 14:33 | PM.PN ---
Subjective Subjective: Interval history: Afebrile, leukocytosis continues to trend down, plt count improving to 116 today, K at 5.3, Cr worsened at 2.4, AST/ALT trending down, T. Bili within range, HIV serology NR. Urine output 850cc. Blood cx thus far negative from 11/26. Medications: Reviewed: Yes Vitals/I&O/Wt Last Vital Signs Temp 97.9 F 11/30/19 12:00 Pulse 66 11/30/19 12:00 Resp 20 H 11/30/19 12:00 BP 147/68 11/30/19 12:00 Pulse Ox 99 11/30/19 12:00 11/29/19 11/30/19 11/30/19 22:59 06:59 14:59 Intake Total 1410 / 3050 1050 / 4100 580 / 580 Output Total 0 / 300 850 / 1150 Balance 1410 / 2750 200 / 2950 580 / 580 Weight last 48 hrs Weight 113.115 kg Weight 113.115 kg Physical Exam Narrative: EXAM NARRATIVE: GEN: Awake, alert and oriented, no acute distress CVS: S1S2 N RS: CTA B/L Abd: Soft, nt/nd , bs+ ROVING DEPARTMENT END FINDER: no focal neuro deficits Data : 11/30/19 04:35 11/30/19 04:35 Other Labs: hb stable at 10.2, WBC 11.5, plt 116 <--72 , cr 2.4 <--1.7, vancomycin trough from 11/28 at 42.8 Micro: Microbiology 11/26/19 15:40 Blood Culture - Final Blood Staphylococcus aureus 11/26/19 15:46 Blood Culture - Final Blood Staphylococcus aureus 11/25/19 11:06 Blood Culture - Final Blood Staphylococcus aureus 11/25/19 11:22 Blood Culture - Final Blood Staphylococcus aureus CT Abd/Pel: Radiologist's impression: atient: Talia Ramirez #: [id number] : 1970Acct#:[id number] Age/Sex: 49 / MADM Date: 11/25/19 Loc: [facility]/Bed: 257-[address]: Katey Martinez MD Ordering Provider/Ordering MD: Katey Martinez MD Date of Service: 11/27/19 Procedure(s): CT chest abd pel wo/w con Accession Number(s): [id number] Report Number: [id number] PROCEDURE INFORMATION: Exam: CT Chest Without and With Contrast Exam date and time: 11/27/2019 11:31 AM Age: 49 years old Clinical indication: Abdominal pain; Other: SOB; Additional info: Persistent bacteremia, generalized pain, high grade fever TECHNIQUE: Imaging protocol: Computed tomography of the chest without and with intravenous contrast. Radiation optimization: All CT scans at this facility use at least one of these dose optimization techniques: automated exposure control; mA and/or kV adjustment per patient size (includes targeted exams where dose is matched to clinical indication); or iterative reconstruction. Contrast material: OMNI 300; Contrast volume: 95 ml; Contrast route: INTRAVENOUS (IV); COMPARISON: No relevant prior studies available. RADIATION DOSE METRICS: Total DLP (mGy-cm): 3443.97 FINDINGS: Lungs: Scarring and/or atelectasis in the inferior segment of the lingula. Spiculated 4 mm pulmonary nodule, right upper lobe, axial series 3, image 26. Followup as discussed below. Pleural space: Mild bilateral pleural fluid collections. Heart: Moderate calcification in the mitral valve and/or mitral valve annulus. Aorta: Unremarkable. No aortic aneurysm. Lymph nodes: Unremarkable. No enlarged lymph nodes. Bones/joints: Unremarkable. No acute fracture. Soft tissues: Unremarkable. IMPRESSION: 1. Mild bilateral pleural fluid collections. 2. Spiculated 4 mm pulmonary nodule, right upper lobe, axial series 3, image 26. Followup as discussed below. 3. Moderate calcification in the mitral valve and/or mitral valve annulus. For patients at low risk (minimal or absent history of smoking and of other known risk factors), no routine follow-up is indicated. For patients at high risk (history of smoking or of other known risk factors), consider optional CT at 12 months. (Drea et al., Fleischner Society, 2017) PROCEDURE INFORMATION: Exam: CT Abdomen And Pelvis Without And With Contrast Exam date and time: 11/27/2019 11:31 AM Age: 49 years old Clinical indication: Abdominal pain; Other: SOB; Additional info: Persistent bacteremia, generalized pain, high grade fever TECHNIQUE: Imaging protocol: Computed tomography of the abdomen and pelvis without and with intravenous contrast. Radiation optimization: All CT scans at this facility use at least one of these dose optimization techniques: automated exposure control; mA and/or kV adjustment per patient size (includes targeted exams where dose is matched to clinical indication); or iterative reconstruction. Contrast material: OMNI 300; Contrast volume: 95 ml; Contrast route: INTRAVENOUS (IV); COMPARISON: No relevant prior studies available. RADIATION DOSE METRICS: Total DLP (mGy-cm): 3443.97 FINDINGS: Liver: Normal. No mass. Gallbladder and bile ducts: Normal. No calcified stones. No ductal dilation. Pancreas: Normal. No ductal dilation. Spleen: Moderate 15.5 x 14.2 splenomegaly. Multiple peripheral perfusion defects or low-density lesions in the spleen most consistent with embolic infarcts versus neoplasm versus infectious process. Mild inflammation in the left lateral pericolic gutter which may be secondary to splenic pathology. One or more accessory splenules. Adrenals: Normal. No mass. Kidneys and ureters: One or more peripheral wedge-shaped hypodense right renal perfusion defects consistent with right pyelonephritis. Stomach and bowel: Unremarkable. No obstruction. No mucosal thickening. Appendix: 2 mm appendicolith within otherwise unremarkable appendix. Intraperitoneal space: Unremarkable. No free air. No significant fluid collection. Retroperitoneal space: Inflammation in the right retroperitoneum and the region of the right ureter consistent with urinary tract infection. Vasculature: Calcification of the abdominal aorta and/or iliac arteries consistent with atherosclerotic vessel disease. One or more calcified pelvic phleboliths. 19 mm portal vein suggesting possible portal hypertension. One or more calcified pelvic phleboliths. Lymph nodes: Unremarkable. No enlarged lymph nodes. Bladder: Unremarkable as visualized. Reproductive: Unremarkable as visualized. Bones/joints: Unremarkable. No acute fracture. Soft tissues: Unremarkable. CT/CT chest abd pel wo/w con IMPRESSION: 1. Moderate 15.5 x 14.2 splenomegaly. 2. 19 mm portal vein suggesting possible portal hypertension. 3. Multiple peripheral perfusion defects or low-density lesions in the spleen most consistent with embolic infarcts versus neoplasm versus infectious process. 4. Inflammation in the right retroperitoneum and the region of the right ureter consistent with urinary tract infection. 5. Mild inflammation in the left lateral pericolic gutter which may be secondary to splenic pathology. 6. 2 mm appendicolith within otherwise unremarkable appendix. 7. One or more peripheral wedge-shaped hypodense right renal perfusion defects consistent with right pyelonephritis. Radiation Dose CTDIVOL = (mGy): DLP = 3443.97~3443.97 (mGy-cm) A&P Assessment and plan (1) Gram-positive bacteremia: -blood cx (11/24): 4/4 bottles positive for gram-positive cocci in clusters identified as MSSA, repeat set (11/25) positive for MSSA in 2/4 bottles, repeat set (11/26) prelim negative so far. - Discontinued ceftriaxone and vancomycin on 11/28 - start nafcillin 1g iv q4h for targetted MSSA treatment on 11/28 based on susceptibility results -Echo: EF=58%, mild concentric LVH, no RWMA, TTE with possible small mobile echodensity on non-coronary cusp of aortic valve, at least moderate AR, trace IA, dilated aortic root however s/p ALE 11/28 without any evidence of vegetation. -Source of bacteremia remains unclear at this point. ALE as above. Denies any h/o joint replacements or other orthopedic hardware. Denies any indwelling IV lines. No recurrent SSTIs. CTAP with splenomegaly and renal hypodense lesions with perfusion defects which likely represent septic embolization. No other chest or abdominal source appears apparent. Will proceed with MR imaging of the spine to evaluate for osteomyelitis/discitis, taken this am results pending. Avoid CT imaging with contrast given MARTHA. Denies any IVDU. - Plan to treat with AT LEAST 6 weeks of iv antibiotics source for complicated endovascular S.aureus infection with likely embolization. Picc line placement to facilitate above once cx definitely negative at 72 hrs. Planned discharge home on iv nafcillin via infusion pump vs cefazolin depending on insurance approval. Will need weekly follow up labs while undergoing the above rx. Status: Acute (2) Fever: - secondary to S. aureus septicemia, npw resolved -Noted to have hyponatremia, transaminitis, hypokalemia, significant thrombocytopenia leukocytosis likely as a result of septicemia. Some suspicion for tickborne illness, thus far negative for Lyme. Covid 19 testing negative -Tick panel pending for RMSF and ehrlichiosis -stool studies negative including C.difficile, FOBT negative Status: Acute Qualifiers: Fever type: unspecified Qualified Code(s): R50.9 - Fever, unspecified (3) Acute hyponatremia: -hypovolemic with noted decreased oral intake -Stable Na; continue to trend -IVF hydration Status: Acute (4) Thrombocytopenia: -Acute thrombocytopenia as previous platelet counts have been within normal limits, likely related to splenic embolization -Seems to be related to acute illness given timeline, now improving -No prior history of immunocompromise; negative hepatitis panel, pending NIEVES, anti-dsDNA, complement levels low; - - HIV screen negative 5th gen -resume heparin ppx -continue to hold NSAIDs, ASA Status: Acute (5) Leukocytosis: -noted to have neutrophilic predominance, trending down -Persistent gram-positive bacteremia, now appears to be clear as of 11/26 Status: Acute Qualifiers: Leukocytosis type: unspecified Qualified Code(s): D72.829 - Elevated white blood cell count, unspecified (6) Transaminitis: -Noted transaminitis -acute hepatitis panel negative -continue to trend LFTs Status: Acute (7) MARTHA (acute kidney injury): Vancomycin level at 42 yesterday, likely that this is contributing Vancomycin has been discontinued as of 11/28 Abx changed to iv nafcillin for directed MSSA rx continue to trend continue Iv hydration with NS @ 125cc/hr discontinue daily K supplementation Status: Acute Additional A&P Information -Hypokalemia; resolved, stop daily supplementation -Obesity: BMI-32 kg/m2 -Chronic smoker, 1 PPD, nicotine replacement therapy -Physical deconditioning, due to acute illness with poor oral intake, hyponatremia -Dehydration; as noted above -Headache; resolved; pain control as needed -regular diet as tolerated -up with assist; PT evaluation appreciated -DVT ppx with SCDs, no heparin due to worsening thrombocytopenia -Dispo: home -Code status: FULL code Attestations Medical Necessity Statement*: pending MR today, planned for PICC line in am, awaiting insurance authorization for home abx Coding Level of Care Code Acute Plate Filler for [facility] Fwd Diagnoses Gram-positive bacteremia R78.81 Fever R50.9 Fever type: unspecified Acute hyponatremia E87.1 Thrombocytopenia D69.6 Leukocytosis D72.829 Leukocytosis type: unspecified Transaminitis R74.0 MARTHA (acute kidney injury) N17.9
[2019-11-30] MEDS: heparin 5,000 unit/mL INJ 1 mL 5000 UNIT SUBCUT (15:17)
[2019-11-30 16:19] LABS: Urine Creatinine 153 mg/dL (39-259)
[2019-11-30 17:15] LABS: RMSF IGG NOT DETECTED; RMSF IGM NOT DETECTED
[2019-11-30 17:39] LABS: E. Chaffeensis AB IGG <1:64; E. Chaffeensis AB IGM <1:20
[2019-11-30 18:16] LABS: Urine Random Sodium 10 mmol/L
[2019-11-30] MEDS: sodium chloride 0.9% 1,000 ML 75 ML IV (21:01)
[2019-11-30] MEDS: acetaminophen 325 mg Tablet 650 MG PO (23:35)
[2019-12-01] VITALS (7 sets, daily range): BP systolic 157–167; BP diastolic 67–80; PULSE 70–74; RESP 16–20; TEMP 35.8–36.7; O2SAT 98–99; BMI 33.8
[2019-12-01] MEDS: heparin 5,000 unit/mL INJ 1 mL 5000 UNIT SUBCUT ×2 (02:20→14:32)
--- NOTE | 2019-12-01 04:14 | PC.NURSE ---
assisted pt to bathroom multiple times tonight, refuses to use the urinal after explaining the importance. States he misses because he shakes uncontrollably. Pt appears to be urinating an adequate amount.
[2019-12-01 05:36] LABS: Basophils % 0.2 %; Eosinophils # 0.1 10^3/uL (0.0-0.8); Eosinophils % 0.9 %; Hematocrit 30.8 % (42.0-52.0); Hemoglobin 9.8 g/dL (11.7-16.6); Lymphocytes # 2.5 10^3/uL (0.8-4.8); Mean Corpuscular HGB Conc 31.8 g/dL (30.0-36.0); Mean Corpuscular Hemoglobin 30.4 pg (28.0-34.0); Mean Corpuscular Volume 95.7 fL (80-94); Mean Platelet Volume 11.9 fL (7.4-10.4); Monocytes # 1.1 10^3/uL (0.2-0.9); Monocytes % 12.6 %; Neutrophils # 4.76 10^3/uL (1.8-7.7); Neutrophils % 55.6 %; Nucleated Red Blood Cells % 0 %; Platelet Count 190 10^3/cmm (130-400); Red Blood Count 3.22 10^6/uL (4.1-5.3); Red Cell Distribution Width 14.6 % (12.1-15.1); White Blood Count 8.6 10^3/uL (4.0-10.0)
[2019-12-01 06:03] LABS: Alanine Aminotransferase 101 U/L (0-41); Alkaline Phosphatase 106 IU/L (40-130); Aspartate Amino Transferase 44 U/L (0-40); Blood Urea Nitrogen 57 mg/dL (6-20); Calcium 6.9 mg/dL (8.5-10.5); Carbon Dioxide 14 mmol/L (22-29); Chloride 107 mmol/L (98-107); Creatinine Clr Calc Pharmacy 34.8773; Globulin 3.2 g/dL (1.3-4.6); Glomerular Filtration Rate 19.5 mL/min (90-130); Glucose 106 mg/dL (65-115); Osmolality Calculated 271 mOsm/kg (285-295); Sodium 131 mmol/L (136-145); Total Bilirubin 0.3 mg/dL (0.15-1.2); Total Protein 5.2 g/dL (6.6-8.7)
[2019-12-01 06:04] LABS: Anion Gap 15.6 (5-19); Potassium 5.6 mmol/L (3.5-5.1); Vancomycin Random 20.8 ug/mL (20.0-40.0)
[2019-12-01] MEDS: nicotine 14 mg Patch 1 PATCH TRANSDERMA (09:08)
[2019-12-01] MEDS: pantoprazole DR 40 mg Tablet PO (09:08)
--- NOTE | 2019-12-01 10:10 | XRR_ITS ---
PROCEDURE INFORMATION: Exam: XR Chest, 1 View Exam date and time: 12/01/2019 10:45 AM Age: 49 years old Clinical indication: Device placement; Picc; Additional info: Picc placement TECHNIQUE: Imaging protocol: XR of the chest Views: 1 view. COMPARISON: CR XR chest 1V portable [id number] 11/25/2019 10:30 AM FINDINGS: Tubes, catheters and devices: There is a right PICC catheter whose tip is in the right subclavian vein. Lungs: Unremarkable. No consolidation. Pleural space: Unremarkable. No pleural effusion. No pneumothorax. Heart/Mediastinum: Unremarkable. No cardiomegaly. Bones/joints: Unremarkable. XR/XR chest 1V portable [id number] IMPRESSION: There is a right PICC catheter whose tip is in the right subclavian vein. Readjust as clinically indicated.
--- NOTE | 2019-12-01 11:00 | XR_ITS ---
WS: [id number] CHEST XRAY TECHNIQUE: Portable chest. CLINICAL INFORMATION: picc placement COMPARISON: Earlier today FINDINGS: Right PICC line has been repositioned since earlier today now with tip in the mid to distal SVC. No pneumothorax. Heart: Cardiomegaly Lungs: Lungs are clear. No consolidation or pleural effusion. Bones: Normal visualized bony structures. XR/XR chest 1V portable [id number] IMPRESSION: Right PICC line in good position. No pneumothorax.
[2019-12-01] MEDS: nafcillin 2,000 MG in sodium chloride 0.9% (plus) 50 ML 50 MG IV ×2 (17:20→20:48)
[2019-12-01] MEDS: sodium chloride 0.9% 1,000 ML 75 ML IV (17:28)
--- NOTE | 2019-12-01 21:21 | PM.PN ---
Subjective Subjective: Interval history: s/p PICC line today. CR trending up, continuing with urine output, thus far >300 cc until this afternoon Medications: Reviewed: Yes Vitals/I&O/Wt Last Vital Signs Temp 98.0 F 12/01/19 21:15 Pulse 70 12/01/19 21:15 Resp 16 12/01/19 21:15 BP 160/67 12/01/19 21:15 Pulse Ox 99 12/01/19 21:15 12/01/19 12/01/19 12/01/19 06:59 14:59 22:59 Intake Total 700 / 2000 1670 / 1670 530 / 2200 Output Total 100 / 200 250 / 250 Balance 600 / 1800 1420 / 1420 530 / 1950 Weight last 48 hrs Weight 113.115 kg Weight 113.115 kg Physical Exam Narrative: EXAM NARRATIVE: GEN: Awake, alert and oriented, no acute distress CVS: S1S2 N RS: CTA B/L Abd: Soft, nt/nd , bs+ CONFLICT RESOLUTION PROFESSIONAL: no focal neuro deficits Data : 12/01/19 05:17 12/01/19 05:17 A&P Assessment and plan (1) Gram-positive bacteremia: -blood cx (11/24): 4/4 bottles positive for gram-positive cocci in clusters identified as MSSA, repeat set (11/25) positive for MSSA in 2/4 bottles, repeat set (11/26) prelim negative so far. - Discontinued ceftriaxone and vancomycin on 11/28 - Continue Nafcillin for targetted MSSA treatment on 11/28 based on susceptibility results -Echo: EF=58%, mild concentric LVH, no RWMA, TTE with possible small mobile echodensity on non-coronary cusp of aortic valve, at least moderate AR, trace AL, dilated aortic root however s/p ALE 11/28 without any evidence of vegetation. -Source of bacteremia remains unclear at this point. ALE as above. Denies any h/o joint replacements or other orthopedic hardware. Denies any indwelling IV lines. No recurrent SSTIs. CTAP with splenomegaly and renal hypodense lesions with perfusion defects which likely represent septic embolization. No other chest or abdominal source appears apparent. Will proceed with MR imaging of the spine to evaluate for osteomyelitis/discitis, taken this am results pending. Avoid CT imaging with contrast given MARTHA. Denies any IVDU. - Plan to treat with AT LEAST 6 weeks of iv antibiotics source for complicated endovascular S.aureus infection with likely embolization. Picc line placement to facilitate above once cx definitely negative at 72 hrs. Planned discharge home on iv nafcillin via infusion pump vs cefazolin depending on insurance approval. Will need weekly follow up labs while undergoing the above rx. Status: Acute (2) Fever: - secondary to S. aureus septicemia, npw resolved -Noted to have hyponatremia, transaminitis, hypokalemia, significant thrombocytopenia leukocytosis likely as a result of septicemia. Some suspicion for tickborne illness, thus far negative for Lyme. Covid 19 testing negative -Tick panel pending for RMSF and ehrlichiosis -stool studies negative including C.difficile, FOBT negative Status: Acute Qualifiers: Fever type: unspecified Qualified Code(s): R50.9 - Fever, unspecified (3) Acute hyponatremia: -hypovolemic with noted decreased oral intake -Stable Na; continue to trend -IVF hydration Status: Acute (4) Thrombocytopenia: -Acute thrombocytopenia as previous platelet counts have been within normal limits, likely related to splenic embolization -Seems to be related to acute illness given timeline, now improving -No prior history of immunocompromise; negative hepatitis panel, pending NIEVES, anti-dsDNA, complement levels low; - - HIV screen negative 5th gen -resume heparin ppx -continue to hold NSAIDs, ASA Status: Acute (5) Leukocytosis: -noted to have neutrophilic predominance, trending down -Persistent gram-positive bacteremia, now appears to be clear as of 11/26 Status: Acute Qualifiers: Leukocytosis type: unspecified Qualified Code(s): D72.829 - Elevated white blood cell count, unspecified (6) Transaminitis: -Noted transaminitis -acute hepatitis panel negative -continue to trend LFTs Status: Acute (7) MARTHA (acute kidney injury): Vancomycin level at 42 yesterday, likely that this is contributing Vancomycin has been discontinued as of 11/28 Abx changed to iv nafcillin for directed MSSA rx continue to trend continue Iv hydration with NS @ 125cc/hr discontinue daily K supplementation Status: Acute Additional A&P Information s/p Picc line today, needs monitoring of kidney function , cr trending up -Hypokalemia; resolved, stop daily supplementation -Obesity: BMI-32 kg/m2 -Chronic smoker, 1 PPD, nicotine replacement therapy -Physical deconditioning, due to acute illness with poor oral intake, hyponatremia -Dehydration; as noted above -Headache; resolved; pain control as needed -regular diet as tolerated -up with assist; PT evaluation appreciated -DVT ppx with SCDs, no heparin due to worsening thrombocytopenia -Dispo: home -Code status: FULL code Attestations Medical Necessity Statement*: needs monitoring of renal function, cr trending up Coding Level of Care Code Acute Manager [employer] Collections for g Fwd Diagnoses Gram-positive bacteremia R78.81 Fever R50.9 Fever type: unspecified Acute hyponatremia E87.1 Thrombocytopenia D69.6 Leukocytosis D72.829 Leukocytosis type: unspecified Transaminitis R74.0 MARTHA (acute kidney injury) N17.9
[2019-12-02 00:10] VITALS: BP 154/70; PULSE 73; RESP 16; TEMP 36.8; O2SAT 98
[2019-12-02] MEDS: nafcillin 2,000 MG in sodium chloride 0.9% (plus) 50 ML 50 MG IV ×6 (00:42→21:08)
[2019-12-02 03:01] LABS: Basophils % 0.2 %; Eosinophils # 0.1 10^3/uL (0.0-0.8); Eosinophils % 0.9 %; Hematocrit 29.5 % (42.0-52.0); Hemoglobin 9.4 g/dL (11.7-16.6); Lymphocytes # 2.2 10^3/uL (0.8-4.8); Lymphocytes % 27.2 %; Mean Corpuscular HGB Conc 31.9 g/dL (30.0-36.0); Mean Corpuscular Hemoglobin 30.4 pg (28.0-34.0); Mean Corpuscular Volume 95.5 fL (80-94); Mean Platelet Volume 11.3 fL (7.4-10.4); Monocytes # 0.9 10^3/uL (0.2-0.9); Monocytes % 11.4 %; Neutrophils # 4.84 10^3/uL (1.8-7.7); Neutrophils % 59.1 %; Nucleated Red Blood Cells % 0 %; Platelet Count 258 10^3/cmm (130-400); Red Blood Count 3.09 10^6/uL (4.1-5.3); Red Cell Distribution Width 14.4 % (12.1-15.1); White Blood Count 8.2 10^3/uL (4.0-10.0)
[2019-12-02 03:10] VITALS: BP 162/65; PULSE 72; RESP 16; TEMP 36.8; O2SAT 98
[2019-12-02 03:20] LABS: Alanine Aminotransferase 71 U/L (0-41); Alkaline Phosphatase 93 IU/L (40-130); Anion Gap 13.5 (5-19); Aspartate Amino Transferase 26 U/L (0-40); Blood Urea Nitrogen 61 mg/dL (6-20); Calcium 6.9 mg/dL (8.5-10.5); Carbon Dioxide 13 mmol/L (22-29); Chloride 108 mmol/L (98-107); Globulin 3.2 g/dL (1.3-4.6); Glomerular Filtration Rate 16.7 mL/min (90-130); Glucose 103 mg/dL (65-115); Osmolality Calculated 267 mOsm/kg (285-295); Potassium 5.5 mmol/L (3.5-5.1); Sodium 129 mmol/L (136-145); Total Bilirubin 0.3 mg/dL (0.15-1.2); Total Protein 5.2 g/dL (6.6-8.7)
[2019-12-02] MEDS: heparin 5,000 unit/mL INJ 1 mL 5000 UNIT SUBCUT ×2 (03:22→15:42)
[2019-12-02 06:00] VITALS: BMI 33.8
[2019-12-02 07:57] VITALS: BP 148/75; PULSE 69; RESP 18; TEMP 36.6; O2SAT 99
[2019-12-02] MEDS: sodium chloride 0.9% 1,000 ML 75 ML IV (08:59)
[2019-12-02] MEDS: pantoprazole DR 40 mg Tablet PO (09:01)
[2019-12-02 11:21] VITALS: BP 162/72; PULSE 74; RESP 17; TEMP 36.6; O2SAT 99
--- NOTE | 2019-12-02 14:07 | PM.CONSULT ---
Providers/Reason For Consult Consulting Physican/Specialty*: Nephro Reason for Consult*: MARTHA Attending Physician: Latonya Martini MD History of Present Illness History of Present Illness Thank you for consultation. Today I met Mr. Ramirez, a 49-year-old gentleman with no significant past medical history who presented back on 11/25/2019 with malaise, fever, diaphoresis, general weakness and headache for the last 5 days prior to hospitalization. He had a T-max of 104 ?F. Prior to hospitalization he did receive azithromycin. He did receive doxycycline for possible tickborne illness. Following hospitalization blood cultures were positive for gram-positive cocci in clusters 2 is identified as MSSA with positive sets on 11/25, and subsequently negative sets on 11/26. He did have a ALE on 11/28 without any evidence of infective endocarditis. He was also treated with vancomycin with a level of 42 yesterday. This was stopped and nafcillin has now been started. Chest x-ray and hospitalization was essentially unremarkable. CT scan of the chest abdomen and pelvis on 11/27/2019 demonstrated mild bilateral pleural fluid and a spiculated 4 mm pulmonary nodule with moderate calcification and in the mitral valve and a mitral valve annulus. Kidneys and ureters: One or more peripheral wedge-shaped hypodense right renal perfusion defects consistent with right pyelonephritis. The spleen demonstrated multiple peripheral perfusion defects consistent with embolism. Inflammation in the right retroperitoneum and the region of the right ureter consistent with urinary tract infection. The CT scan was performed with intravenous contrast. He is also taking pantoprazole. No prior history of acute or chronic kidney disease. He has never seen a kidney specialist and he received hemodialysis. There is noted that his serum creatinine was normal on admission, on 11/28 it increased up to 1.7 and has been trending up ever since and is now 3.9. He specifically denies uremic symptoms. He has 1+ edema in both arms and hands, he also has 1-2+ edema in the legs 2, denies extremity edema, shortness of breath or other volume associated symptoms. Urinalysis performed on 11/24 demonstrated 1+ protein, 3+ blood, 25-40 RBCs per high-power field, the presence of urinary bacteria, urinary sodium of only 10. Urine output has not been fully recorded, however, 450 cc reported in last 24 hours. Hemodynamics since admission has been stable. The lowest we see is 104/47 on the at 9:00 in the morning. Apart from this pressures have been robust. Review of Systems Narrative: ROS - 12 point review of systems completed per HPI and subjective assessment, this includes Constitutional: No weakness, fatigue Respiratory: No SOB on exertion, comfortable at rest CardioVasc: No chest pain, palpitations Gastrointestinal: No nausea, no vomiting Neurological: No seizures, no AMS Derm: No new rashes, lesions or wounds Immunological: No seasonal and no food allergies Meds/Allergies Home Medications and Allergies Home Medications Medication Instructions Recorded Confirmed Last Taken Type albuterol sulfate 90 mcg/actuation 2 puff INHALATION Q6H PRN #8.5 gm 11/20/19 11/25/19 Unknown Rx aerosol inhaler aspirin 81 mg tablet,delayed 81 mg PO DAILY 11/20/19 11/25/19 11/24/19 History release azithromycin 250 mg tablet See Rx Instructions PO .COMPLEX #6 11/20/19 11/25/19 11/24/19 Rx tab ywrgpnslbardnww-vhtplgtjzgpkfyf-PJ 7.5 ml PO Q6H PRN #160 ml 11/20/19 11/25/19 11/23/19 Rx 2 mg-30 mg-10 mg/5 mL oral syrup omega-3 fatty acids 1,000 mg 1,000 mg PO DAILY 11/20/19 11/25/19 11/24/19 History capsule vitamin B complex 1 tab PO DAILY 11/20/19 11/25/19 11/24/19 History wwygmtswqv-kkyzwrvjvheet-etoo 1 tab PO Q4H PRN 11/25/19 11/25/19 Unknown History ibuprofen 800 mg PO PRN 11/25/19 11/25/19 11/24/19 History ondansetron HCl [Zofran] 4 mg PO Q6H PRN 11/25/19 11/25/19 Unknown History Allergies Allergy/AdvReac Type Severity Reaction Status Date / Time No Known Allergies Allergy Verified 11/25/19 11:06 Current Medications Current Medications Generic Name Dose Route Start Last Admin Trade Name Freq PRN Reason Stop Dose Admin Acetaminophen 650 mg 11/25/19 14:02 11/30/19 23:35 Tylenol PO 650 mg Q6H PRN Administration Mild Pain or increased temp Heparin Sodium (Beef Lung) 5,000 unit 11/25/19 15:00 12/02/19 03:22 Heparin SUBCUT 5,000 unit Q12H [facility] Administration Nafcillin Sodium 2,000 mg/ 50 mls @ 50 mls/hr 12/01/19 16:00 12/02/19 12:15 Sodium Chloride IV 50 mls/hr Q4H [facility] Administration Nicotine 1 patch 11/25/19 14:10 12/02/19 09:01 Nicoderm 14 Mg Patch TRANSDERMA Not Given DAILY [facility] Pantoprazole Sodium 40 mg 11/26/19 09:00 12/02/19 09:01 Protonix PO 40 mg DAILY [facility] Administration PFSH Acute PFSH: Medical History (Updated 11/30/19 @ 14:51 by Latonya Martini MD) Essential hypertension Heart murmur, systolic Palpitation Surgical History No pertinent past surgical history Family History Other CAD (coronary artery disease) Cancer Diabetes Social History Smoking and tobacco status: current every day smoker cigarettes Packs smoked per day: 1 Quit status (tobacco): not considering quitting Alcohol intake: current Alcohol intake frequency: few times a month Substance/Drug Use: never Household members: family Marital status: Current occupational status: employed 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 History of recent travel: No Current gender identity: Male Vitals/I&O/Wt Last Vital Signs Temp 97.8 F 12/02/19 11:21 Pulse 74 12/02/19 11:21 Resp 17 12/02/19 11:21 BP 162/72 12/02/19 11:21 Pulse Ox 99 12/02/19 11:21 12/01/19 12/02/19 12/02/19 22:59 06:59 14:59 Intake Total 580 / 2250 2080 / 4330 530 / 530 Output Total 400 / 650 450 / 450 Balance 580 / 2000 1680 / 3680 80 / 80 Weight last 48 hrs Weight 113.115 kg Weight 113.115 kg Physical Exam Narrative: EXAM NARRATIVE: Exam performed with the aid of the bedside RN via telemed Constitutional: Awake, conversant, jovial HEENT: Wet mucosa, no jvp, non icteric Lungs: Bilaterally clear without discernible wheeze, rales in all lung zones CVS: S1 S2, no murmurs Abdo: Soft, BS ok Ext 4: 2-3+ edema, peripheral perfusion with no cyanosis Neurological: Grossly non-focal Data Micro: Micro: Microbiology 11/27/19 11:30 Blood Culture - Fi nal Blood NO GROWTH AFTER 5 DAYS 11/27/19 11:30 Blood Culture - Fi nal Blood NO GROWTH AFTER 5 DAYS A&P Additional A&P Information 1. Acute kidney injury. Differential diagnosis in this case includes contrast-induced nephropathy, especially as he was significantly prerenal on admission and received a CT scan with intravenous contrast. Vancomycin associated acute tubular injury is also possible. Postinfectious glomerulopathy especially associated with staph aureus can occur in a lower timeframe then is classically described. Less likely would be proton pump inhibitor associated acute interstitial nephritis. -Vancomycin is now stopped. -Clinically he is not volume depleted at this time and I agree that additional IV fluid would be of little benefit. -We will repeat urinalysis with urine fractional excretion of sodium and urea. We will send CPK, uric acid and TSH -No indication for hemodialysis at this time. -Avoid the usual nephrotoxic meds. 2. Electrolytes. Noncritical aberration of sodium and potassium Progressively worsening acidosis, will give sodium bicarbonate tablets, 650 mg p.o. 3 times daily Legionella Ag. 3. MSSA bacteremia -Complicated by embolic showering. This likely explains the renal lesion. Primary source is unclear. -Currently on nafcillin 4. Hemodynamics. -Blood pressure marginally elevated but again noncritical, we will continue to monitor this closely. Thank you for consultation. As always is a pleasure myself and Dominique to follow these patients with you. Interview and examination was performed with using telemedicine with the assistance of the bedside nurse MD Anette Schaeferconcepcion [facility] [phone] Consult Attestations Medical Necessity Statement: eval for MARTHA Coding Level of Care Code Acute Family Life Counselor for Parmjit Stein
[2019-12-02 14:28] LABS: Creatine Phosphokinase 23 U/L (39-308); Uric Acid 8.2 mg/dL (3.4-7.0)
[2019-12-02] MEDS: sodium bicarbonate 650 mg Tablet PO ×2 (15:42→21:09)
[2019-12-02 16:00] VITALS: BP 155/81; PULSE 67; RESP 17; TEMP 36.7; O2SAT 99
[2019-12-02 16:13] LABS: Bilirubin Urine Neg (NEGATIVE); Blood Urine 3+ (Negative); Glucose Urine UA Norm (Normal); Ketones Urine Negative (Negative); Leukocyte Esterase Urine Trace (Negative); Nitrate Urine Negative (Negative); Protein Urine 1+ (Negative); Specific Gravity, Urine 1.015 (1.005-1.030); Urine Appearance Hazy (CLEAR); Urine Color Yellow (Yellow); Urobilinogen Urine Norm (Negative); pH Urine 5 (5-7)
--- NOTE | 2019-12-02 17:17 | XRR_ITS ---
PROCEDURE INFORMATION: Exam: XR Chest, 1 View Exam date and time: 12/02/2019 5:55 PM Age: 49 years old Clinical indication: Chest pain; Type not specified TECHNIQUE: Imaging protocol: XR of the chest Views: 1 view. COMPARISON: CR XR chest 1V portable [id number] 12/01/2019 11:15 AM FINDINGS: Tubes, catheters and devices: Right arm PICC present with the tip at the cavoatrial junction. Lungs: No pneumonia or pulmonary edema. Prior pulmonary granulomatous disease. Pleural space: No pleural effusion or pneumothorax. Heart/Mediastinum: The cardiac silhouette is enlarged. The mediastinal contours are normal. Bones/joints: No acute osseous abnormality. XR/XR chest 1V portable [id number] IMPRESSION: No acute abnormality.
[2019-12-02 17:56] LABS: Bacteria Urine 1+; Fine Granular Casts Urine 0-4 /lpf; Hyaline Casts Urine 0-4; RBC Urine 25-40 /hpf (0-2)
[2019-12-02 17:57] LABS: Add Urine Culture? No
--- NOTE | 2019-12-02 18:30 | PM.PN ---
Subjective Subjective: Interval history: cr increased to 3.9, urine output 1.1L, LE edema developing, when seen this evening, noted to be tachypneic with RR 20s and audible wheezing Medications: Reviewed: Yes Medication Review Details: Current Medications Acetaminophen (Tylenol) 650 mg PO Q6H PRN PRN Reason: Mild Pain or increased temp Last Admin: 11/29/19 03:33 Dose: 650 mg Documented by: Albuterol Sulfate (Albuterol) 2.5 mg INHALATION ONCE PRN PRN Reason: WHEEZING Doxycycline Monohydrate (Vibramycin) 100 mg PO BID [facility]; Protocol Last Admin: 11/29/19 17:31 Dose: 100 mg Documented by: Famotidine (Pepcid Inj) 20 mg IVP ONCE PRN PRN Reason: HEARTBURN Fentanyl (Sublimaze) 50 mcg IVP Q10M PRN PRN Reason: Preop Pain Fentanyl (Sublimaze) 100 mcg IVP ONCE PRN PRN Reason: Per anesthesia for block Heparin Sodium (Beef Lung) (Heparin) 5,000 unit SUBCUT Q12H [facility] Last Admin: 11/29/19 13:11 Dose: Not Given Documented by: Potassium Chloride/Sodium Chloride (Sodium Chlor 0.9% + Kcl 20 Meq) 20 meq in 1,000 mls @ 125 mls/hr IV .Q8H [facility] Last Admin: 11/29/19 13:32 Dose: 125 mls/hr Documented by: Sodium Chloride (Sodium Chloride 0.9%) 1,000 mls @ 30 mls/hr IV .Q24H [facility] Stop: 11/30/19 07:44 Last Infusion: 11/29/19 08:51 Dose: Infused Documented by: Nafcillin Sodium 1,000 mg/ (Sodium Chloride) 50 mls @ 100 mls/hr IV Q4H [facility] Last Admin: 11/29/19 17:32 Dose: 100 mls/hr Documented by: Ipratropium [place] (Atrovent Neb) 0.5 mg INHALATION ONCE PRN PRN Reason: WHEEZING Lidocaine HCl (Lidocaine 1%) 0.1 ml INTRADERMA PRN PRN PRN Reason: anesthetic prior to IV start Stop: 11/30/19 07:35 Lidocaine HCl (Lidocaine 2% Viscous) 1 ml TOPICAL PRN PRN PRN Reason: Anesthetic prior to IV start Lorazepam (Ativan) 1 mg IVP Q6H PRN PRN Reason: ANXIETY Metoclopramide HCl (Reglan) 10 mg IVP ONCE PRN PRN Reason: N/V if zofran ineffective Midazolam HCl (Versed) 2 mg IVP Q5M PRN PRN Reason: Preop Anxiety Midazolam HCl (Versed) 5 mg IVP ONCE PRN PRN Reason: Per anesthesia for block Nicotine (Nicoderm 14 Mg Patch) 1 patch TRANSDERMA DAILY [facility] Last Admin: 11/28/19 09:03 Dose: 1 patch Documented by: Ondansetron HCl (Zofran) 4 mg IVP Q6H PRN PRN Reason: NAUSEA AND VOMITING Ondansetron HCl (Zofran) 4 mg IVP Q5M PRN PRN Reason: NAUSEA AND VOMITING Pantoprazole Sodium (Protonix) 40 mg PO DAILY [facility] Last Admin: 11/28/19 09:03 Dose: 40 mg Documented by: Potassium Chloride (Klor-Con 10) 40 meq PO DAILY [facility] Last Admin: 11/28/19 09:03 Dose: 40 meq Documented by: Scopolamine (Transderm-Scop) 1 patch TRANSDERMA ONCE PRN PRN Reason: Nausea/ Vomiting Prophylaxis Vitals/I&O/Wt Last Vital Signs Temp 98.1 F 12/02/19 16:00 Pulse 67 12/02/19 16:00 Resp 17 12/02/19 16:00 BP 155/81 12/02/19 16:00 Pulse Ox 99 12/02/19 16:00 12/02/19 12/02/19 12/02/19 06:59 14:59 22:59 Intake Total 2080 / 4330 1060 / 1060 480 / 1540 Output Total 400 / 650 700 / 700 100 / 800 Balance 1680 / 3680 360 / 360 380 / 740 Weight last 48 hrs Weight 113.115 kg Weight 113.115 kg Physical Exam Narrative: EXAM NARRATIVE: GEN: Awake, alert and oriented, no acute distress CVS: S1S2 N RS: B/L scattered wheezing Abd: Soft, nt/nd , bs+ INSPECTOR LINE: no focal neuro deficits EXT: pitting edema developing Data : 12/02/19 02:41 12/02/19 02:41 Micro: Microbiology 11/27/19 11:30 Blood Culture - Final Blood NO GROWTH AFTER 5 DAYS 11/27/19 11:30 Blood Culture - Final Blood NO GROWTH AFTER 5 DAYS A&P Assessment and plan (1) Gram-positive bacteremia: -blood cx (11/24): 4/4 bottles positive for gram-positive cocci in clusters identified as MSSA, repeat set (11/25) positive for MSSA in 2/4 bottles, repeat set (11/26) prelim negative so far. - Discontinued ceftriaxone and vancomycin on 11/28 - Continue Nafcillin 2g iv q4h for targetted MSSA treatment on 11/28 based on susceptibility results -Echo: EF=58%, mild concentric LVH, no RWMA, TTE with possible small mobile echodensity on non-coronary cusp of aortic valve, at least moderate AR, trace [place], dilated aortic root however s/p ALE 11/28 without any evidence of vegetation. -Source of bacteremia remains unclear at this point. ALE as above. Denies any h/o joint replacements or other orthopedic hardware. Denies any indwelling IV lines. No recurrent SSTIs. CTAP with splenomegaly and renal hypodense lesions with perfusion defects which likely represent septic embolization. No other chest or abdominal source appears apparent. Will proceed with MR imaging of the spine to evaluate for osteomyelitis/discitis, taken this am results pending. Avoid CT imaging with contrast given MARTHA. Denies any IVDU. - Plan to treat with AT LEAST 6 weeks of iv antibiotics source for complicated endovascular S.aureus infection with likely embolization. Picc line placement to facilitate above once cx definitely negative at 72 hrs. Planned discharge home on iv nafcillin via infusion pump vs cefazolin depending on insurance approval. Will need weekly follow up labs while undergoing the above rx. Status: Acute (2) Fever: - secondary to S. aureus septicemia, npw resolved -Noted to have hyponatremia, transaminitis, hypokalemia, significant thrombocytopenia leukocytosis likely as a result of septicemia. Some suspicion for tickborne illness, thus far negative for Lyme. Covid 19 testing negative -Tick panel pending for RMSF and ehrlichiosis -stool studies negative including C.difficile, FOBT negative Status: Acute Qualifiers: Fever type: unspecified Qualified Code(s): R50.9 - Fever, unspecified (3) Acute hyponatremia: -hypovolemic with noted decreased oral intake -Stable Na; continue to trend -IVF hydration Status: Acute (4) Thrombocytopenia: -Acute thrombocytopenia as previous platelet counts have been within normal limits, likely related to splenic embolization -Seems to be related to acute illness given timeline, now improving -No prior history of immunocompromise; negative hepatitis panel, pending NIEVES, anti-dsDNA, complement levels low; - - HIV screen negative 5th gen -resume heparin ppx -continue to hold NSAIDs, ASA Status: Acute (5) Leukocytosis: -noted to have neutrophilic predominance, trending down -Persistent gram-positive bacteremia, now appears to be clear as of 11/26 Status: Acute Qualifiers: Leukocytosis type: unspecified Qualified Code(s): D72.829 - Elevated white blood cell count, unspecified (6) Transaminitis: -Noted transaminitis -acute hepatitis panel negative -continue to trend LFTs Status: Acute (7) MARTHA (acute kidney injury): Vancomycin level peak at 42, trending down, likely also GITA contributing Vancomycin has been discontinued as of 11/28 Abx changed to iv nafcillin for directed MSSA rx D/c IVF, lasix 20mg iv given tacypnea and wheezing, concernf or pulm edema. Check CXR renal consult Status: Acute Additional A&P Information s/p Picc line 11/29 -Hypokalemia; resolved, stop daily supplementation -Obesity: BMI-32 kg/m2 -Chronic smoker, 1 PPD, nicotine replacement therapy -Physical deconditioning, due to acute illness with poor oral intake, hyponatremia -Dehydration; as noted above -Headache; resolved; pain control as needed -regular diet as tolerated -up with assist; PT evaluation appreciated -DVT ppx with SCDs, no heparin due to worsening thrombocytopenia -Dispo: home -Code status: FULL code Attestations Medical Necessity Statement*: MARTHA with worsening cr Coding Level of Care Code Acute Jewelry Facer for [facility] Fwd Diagnoses Gram-positive bacteremia R78.81 Fever R50.9 Fever type: unspecified Acute hyponatremia E87.1 Thrombocytopenia D69.6 Leukocytosis D72.829 Leukocytosis type: unspecified Transaminitis R74.0 MARTHA (acute kidney injury) N17.9
[2019-12-02] MEDS: FUROsemide 10 mg/mL SDV 2mL 20 MG IVP (18:46)
[2019-12-02 19:36] LABS: Urine Creatinine 136 mg/dL (39-259)
[2019-12-02 20:00] VITALS: BP 141/73; PULSE 72; RESP 20; TEMP 36.9; O2SAT 98
[2019-12-02 20:26] LABS: Urea Nitrogen,Urine Random 573 mg/dL; Urine Random Sodium < 10 mmol/L
[2019-12-03] VITALS (13 sets, daily range): BP systolic 133–161; BP diastolic 64–75; PULSE 22–77; RESP 12–147; TEMP 36.3–37.1; O2SAT 97–100
--- NOTE | 2019-12-03 | SCC_ITS ---
Procedure Done: Insertion of 12 [place] dual-lumen 20 cm temporary hemodialysis catheter into the left subclavian vein with intraoperative fluoroscopy interpretation. 10.5 seconds of fluoroscopic guidance, for a cumulative dose of 5.77 mGy, was provided to Dr. Baires by the radiology department. C-arm images of the chest were saved for the patient's permanent record. ADDI
[2019-12-03] MEDS: nafcillin 2,000 MG in sodium chloride 0.9% (plus) 50 ML 50 MG IV ×3 (01:01→08:17)
[2019-12-03] MEDS: heparin 5,000 unit/mL INJ 1 mL 5000 UNIT SUBCUT (03:58)
[2019-12-03 05:24] LABS: Basophils % 0.3 %; Eosinophils # 0.1 10^3/uL (0.0-0.8); Eosinophils % 1.2 %; Hematocrit 29.7 % (42.0-52.0); Hemoglobin 9.4 g/dL (11.7-16.6); Lymphocytes # 1.7 10^3/uL (0.8-4.8); Lymphocytes % 22.2 %; Mean Corpuscular HGB Conc 31.6 g/dL (30.0-36.0); Mean Corpuscular Hemoglobin 30.7 pg (28.0-34.0); Mean Corpuscular Volume 97.1 fL (80-94); Mean Platelet Volume 11.1 fL (7.4-10.4); Monocytes # 0.9 10^3/uL (0.2-0.9); Monocytes % 11.6 %; Neutrophils # 4.79 10^3/uL (1.8-7.7); Neutrophils % 63.8 %; Nucleated Red Blood Cells % 0 %; Platelet Count 350 10^3/cmm (130-400); Red Blood Count 3.06 10^6/uL (4.1-5.3); Red Cell Distribution Width 14.4 % (12.1-15.1); White Blood Count 7.5 10^3/uL (4.0-10.0)
[2019-12-03 05:40] LABS: Alanine Aminotransferase 57 U/L (0-41); Albumin Level 2.1 g/dL (3.5-5.2); Alkaline Phosphatase 88 IU/L (40-130); Anion Gap 16.7 (5-19); Aspartate Amino Transferase 24 U/L (0-40); Blood Urea Nitrogen 66 mg/dL (6-20); Calcium 7.9 mg/dL (8.5-10.5); Carbon Dioxide 12 mmol/L (22-29); Chloride 109 mmol/L (98-107); Globulin 3.2 g/dL (1.3-4.6); Glomerular Filtration Rate 13.8 mL/min (90-130); Glucose 75 mg/dL (65-115); Osmolality Calculated 272 mOsm/kg (285-295); Potassium 5.7 mmol/L (3.5-5.1); Sodium 132 mmol/L (136-145); Total Bilirubin 0.3 mg/dL (0.15-1.2); Total Protein 5.3 g/dL (6.6-8.7)
[2019-12-03] MEDS: pantoprazole DR 40 mg Tablet PO (07:59)
[2019-12-03] MEDS: sodium bicarbonate 650 mg Tablet PO ×2 (07:59→15:33)
--- NOTE | 2019-12-03 10:34 | PM.PN ---
Subjective Subjective: Interval history: Cr increasing to 4.6 today, urine output 1.9L, wt 123kg, Hb 9.4, K 5.7, this morning had 5-7 beats of V tach on telemetry, asymptomatic, dyspnea and tachypnea improved today. Medications: Reviewed: Yes Vitals/I&O/Wt Last Vital Signs Temp 98.7 F 12/03/19 07:41 Pulse 22 L 12/03/19 07:41 Resp 147 H 12/03/19 07:41 BP 147/74 12/03/19 07:41 Pulse Ox 98 12/03/19 07:41 12/02/19 12/03/19 12/03/19 22:59 06:59 14:59 Intake Total 2140 / 3200 400 / 3600 50 / 50 Output Total 450 / 1150 630 / 1780 150 / 150 Balance 169 / 2049 -230 / 1820 -100 / -100 Weight last 48 hrs Weight 123.009 kg Weight 113.115 kg Physical Exam Narrative: EXAM NARRATIVE: GEN: Awake, alert and oriented, no acute distress CVS: S1S2 N RS: CTA B/L Abd: Soft, nt/nd , bs+ REPORT CHECKER: no focal neuro deficits EXT: LE edema improving today Data : 12/03/19 04:43 12/03/19 04:43 Micro: Microbiology 11/27/19 11:30 Blood Culture - Final Blood NO GROWTH AFTER 5 DAYS 11/27/19 11:30 Blood Culture - Final Blood NO GROWTH AFTER 5 DAYS A&P Assessment and plan (1) Septicemia due to Staphylococcus aureus: Status: Acute (2) Fever: - secondary to S. aureus septicemia, now resolved -Noted to have hyponatremia, transaminitis, hypokalemia, significant thrombocytopenia leukocytosis likely as a result of septicemia. -stool studies negative including C.difficile, FOBT negative Status: Acute Qualifiers: Fever type: unspecified Qualified Code(s): R50.9 - Fever, unspecified (3) Acute hyponatremia: Now improving Status: Acute (4) Thrombocytopenia: Status: Acute (5) Leukocytosis: -noted to have neutrophilic predominance, trending down -Persistent gram-positive bacteremia, now appears to be clear as of 11/26 Status: Acute Qualifiers: Leukocytosis type: unspecified Qualified Code(s): D72.829 - Elevated white blood cell count, unspecified (6) Transaminitis: -Noted transaminitis -acute hepatitis panel negative -continue to trend LFTs Status: Acute (7) MARTHA (acute kidney injury): Status: Acute Additional A&P Information # staphylococcus aureus septicemia -blood cx (11/24): 4/4 bottles positive for gram-positive cocci in clusters identified as MSSA, repeat set (11/25) positive for MSSA in 2/4 bottles, repeat set (11/26) negative so far. - Discontinued ceftriaxone and vancomycin on 11/28 - Continue Nafcillin 2g for targetted MSSA treatment , started on 11/28 based on susceptibility results -Echo: EF=58%, mild concentric LVH, no RWMA, TTE with possible small mobile echodensity on non-coronary cusp of aortic valve, at least moderate AR, trace CT, dilated aortic root however s/p ALE 11/28 without any evidence of vegetation. -Source of bacteremia remains unclear at this point. ALE as above. Denies any h/o joint replacements or other orthopedic hardware. Denies any indwelling IV lines. No recurrent SSTIs. CTAP with splenomegaly and renal hypodense lesions with perfusion defects which likely represent septic embolization. No other chest or abdominal source appears apparent. MR imaging unremarkable. Denies any IVDU. HIV status negative - Plan to treat with AT LEAST 6 weeks of iv antibiotics source for complicated endovascular S.aureus infection with likely embolization. Planned discharge home on iv nafcillin via infusion pump, approved by insurance - weekly labs with CBC, CMP while on Nafcillin # MARTHA Vancomycin level peak at 42, trending down, likely also GITA contributing Staph GN likely also contributing Vancomycin has been discontinued as of 11/28 Abx changed to iv nafcillin for directed MSSA rx cr increasing Placement of temporary dialysis catheter today in anticipation of possible dialysis , gen/surg consult #Hyperkalemia : ca gluconate, insulin/dextrose now given short run of asymtpatoic V tach this am on telemetry # Thrombocytopenia, resolved # hyponatremia, improving -Obesity: BMI-32 kg/m2 -Chronic smoker, 1 PPD, nicotine replacement therapy -Physical deconditioning, due to acute illness with poor oral intake, improving - transaminitis: improving -Dehydration; as noted above -Headache; resolved; pain control as needed -diet as tolerated, NPO for now for catheter placement -DVT ppx with heparin -Dispo: home when medically reasy, home abx infusion arranged for nafcillin with infusion pump -Code status: FULL code s/p Picc line 11/29 Attestations Medical Necessity Statement*: worsening kidney function, hyperkalemia Coding Level of Care Code Acute Executive Director Of Nursing for [facility] Fwd Diagnoses Septicemia due to Staphylococcus aureus A41.01 Fever R50.9 Fever type: unspecified Acute hyponatremia E87.1 Thrombocytopenia D69.6 Leukocytosis D72.829 Leukocytosis type: unspecified Transaminitis R74.0 MARTHA (acute kidney injury) N17.9
[2019-12-03] MEDS: calcium gluconate 0.1 gm/mL 10% SDV 10mL 1 GM IVP (10:48)
--- NOTE | 2019-12-03 11:02 | PM.PN ---
Subjective Subjective: Interval history: Breathing is a little labored today but otherwise he feels ok. Swelling is a little better. Eating and drinking ok. No other uremic Sx. Passing urine. No bladder outflow issues. Medications: Reviewed: Yes Medication Review Details: Current Medications Acetaminophen (Tylenol) 650 mg PO Q6H PRN PRN Reason: Mild Pain or increased temp Last Admin: 11/29/19 03:33 Dose: 650 mg Documented by: Albuterol Sulfate (Albuterol) 2.5 mg INHALATION ONCE PRN PRN Reason: WHEEZING Doxycycline Monohydrate (Vibramycin) 100 mg PO BID [facility]; Protocol Last Admin: 11/29/19 17:31 Dose: 100 mg Documented by: Famotidine (Pepcid Inj) 20 mg IVP ONCE PRN PRN Reason: HEARTBURN Fentanyl (Sublimaze) 50 mcg IVP Q10M PRN PRN Reason: Preop Pain Fentanyl (Sublimaze) 100 mcg IVP ONCE PRN PRN Reason: Per anesthesia for block Heparin Sodium (Beef Lung) (Heparin) 5,000 unit SUBCUT Q12H [facility] Last Admin: 11/29/19 13:11 Dose: Not Given Documented by: Potassium Chloride/Sodium Chloride (Sodium Chlor 0.9% + Kcl 20 Meq) 20 meq in 1,000 mls @ 125 mls/hr IV .Q8H [facility] Last Admin: 11/29/19 13:32 Dose: 125 mls/hr Documented by: Sodium Chloride (Sodium Chloride 0.9%) 1,000 mls @ 30 mls/hr IV .Q24H [facility] Stop: 11/30/19 07:44 Last Infusion: 11/29/19 08:51 Dose: Infused Documented by: Nafcillin Sodium 1,000 mg/ (Sodium Chloride) 50 mls @ 100 mls/hr IV Q4H [facility] Last Admin: 11/29/19 17:32 Dose: 100 mls/hr Documented by: Ipratropium [place] (Atrovent Neb) 0.5 mg INHALATION ONCE PRN PRN Reason: WHEEZING Lidocaine HCl (Lidocaine 1%) 0.1 ml INTRADERMA PRN PRN PRN Reason: anesthetic prior to IV start Stop: 11/30/19 07:35 Lidocaine HCl (Lidocaine 2% Viscous) 1 ml TOPICAL PRN PRN PRN Reason: Anesthetic prior to IV start Lorazepam (Ativan) 1 mg IVP Q6H PRN PRN Reason: ANXIETY Metoclopramide HCl (Reglan) 10 mg IVP ONCE PRN PRN Reason: N/V if zofran ineffective Midazolam HCl (Versed) 2 mg IVP Q5M PRN PRN Reason: Preop Anxiety Midazolam HCl (Versed) 5 mg IVP ONCE PRN PRN Reason: Per anesthesia for block Nicotine (Nicoderm 14 Mg Patch) 1 patch TRANSDERMA DAILY [facility] Last Admin: 11/28/19 09:03 Dose: 1 patch Documented by: Ondansetron HCl (Zofran) 4 mg IVP Q6H PRN PRN Reason: NAUSEA AND VOMITING Ondansetron HCl (Zofran) 4 mg IVP Q5M PRN PRN Reason: NAUSEA AND VOMITING Pantoprazole Sodium (Protonix) 40 mg PO DAILY [facility] Last Admin: 11/28/19 09:03 Dose: 40 mg Documented by: Potassium Chloride (Klor-Con 10) 40 meq PO DAILY [facility] Last Admin: 11/28/19 09:03 Dose: 40 meq Documented by: Scopolamine (Transderm-Scop) 1 patch TRANSDERMA ONCE PRN PRN Reason: Nausea/ Vomiting Prophylaxis Vitals/I&O/Wt Last Vital Signs Temp 98.7 F 12/03/19 07:41 Pulse 22 L 12/03/19 07:41 Resp 147 H 12/03/19 07:41 BP 147/74 12/03/19 07:41 Pulse Ox 98 12/03/19 07:41 12/02/19 12/03/19 12/03/19 22:59 06:59 14:59 Intake Total 2140 / 3200 400 / 3600 530 / 530 Output Total 450 / 1150 630 / 1780 350 / 350 Balance 1690 / 2050 -230 / 1820 180 / 180 Weight last 48 hrs Weight 123.009 kg Weight 113.115 kg Physical Exam Narrative: EXAM NARRATIVE: Exam performed with the aid of the bedside RN via telemed Constitutional: Awake, conversant, jovial HEENT: Wet mucosa, no jvp, non icteric Lungs: Bilaterally clear without discernible wheeze, rales in all lung zones CVS: S1 S2, no murmurs Abdo: Soft, BS ok Ext 4: 2-3+ edema, peripheral perfusion with no cyanosis Neurological: Grossly non-focal Data : 12/03/19 04:43 12/03/19 04:43 Micro: Microbiology 11/27/19 11:30 Blood Culture - Final Blood NO GROWTH AFTER 5 DAYS 11/27/19 11:30 Blood Culture - Final Blood NO GROWTH AFTER 5 DAYS A&P Additional A&P Information 1. Acute kidney injury. 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 - given increase in K, acidosis and rate of increase of creatinine will dialyze him today; 2K, UF 2L - line to be placed by Gen Surg, thank you - am eval - Avoid the usual nephrotoxic meds. 2. Electrolytes. - HyoNa, HyperK, acidosis from renal failure - dialysis will fix 3. MSSA bacteremia - Complicated by embolic showering. This likely explains the renal lesion. Primary source is unclear. - Currently on nafcillin 4. Hemodynamics. - Appears to be stable, we will continue to monitor this closely. Thank you for consultation. As always is a pleasure myself and Dominique to follow these patients with you. Interview and examination was performed with using telemedicine with the assistance of the bedside nurse MD Dominique Schaefer renal care [phone] Attestations Medical Necessity Statement*: Evaluation of MARTHA Coding Level of Care Code Acute Complex Director for Parmjit Stein
[2019-12-03] MEDS: dextrose 50% syringe 50 mL IVP (11:08)
[2019-12-03] MEDS: insulin regular-human 10 UNIT in SYRINGE 1 EACH IVP (11:16)
--- NOTE | 2019-12-03 11:30 | P.CONIM_ITS ---
Providers/Reason For Consult Consulting Physican/Specialty*: General Surgery Emeka Baires MD Reason for Consult*: Acute kidney injury, requesting temporary dialysis catheter. Attending Physician: Latonya Martini MD Primary Care Provider: DOCTOR NOT ON FILE History of Present Illness History of Present Illness Chip Ramirez is a 49 year old male admitted just over a week ago with a febrile illness. 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 I have been asked to place a semiurgent but temporary dialysis catheter for him so that dialysis can proceed today. Review of Systems General: Reports: 10 or more systems reviewed and unremarkable except in HPI and below Meds/Allergies Home Medications and Allergies Home Medications Medication Instructions Recorded Confirmed Last Taken Type albuterol sulfate 90 mcg/actuation 2 puff INHALATION Q6H PRN #8.5 gm 11/20/19 11/25/19 Unknown Rx aerosol inhaler aspirin 81 mg tablet,delayed 81 mg PO DAILY 11/20/19 11/25/19 11/24/19 History release azithromycin 250 mg tablet See Rx Instructions PO .COMPLEX #6 11/20/19 11/25/19 11/24/19 Rx tab lgegwairdkbrvml-psewidwpjskscjp-XH 7.5 ml PO Q6H PRN #160 ml 11/20/19 11/25/19 11/23/19 Rx 2 mg-30 mg-10 mg/5 mL oral syrup omega-3 fatty acids 1,000 mg 1,000 mg PO DAILY 11/20/19 11/25/19 11/24/19 History capsule vitamin B complex 1 tab PO DAILY 11/20/19 11/25/19 11/24/19 History cqsanyugov-btvnhnlabdpcu-skxx 1 tab PO Q4H PRN 11/25/19 11/25/19 Unknown History ibuprofen 800 mg PO PRN 11/25/19 11/25/19 11/24/19 History ondansetron HCl [Zofran] 4 mg PO Q6H PRN 11/25/19 11/25/19 Unknown History Allergies Allergy/AdvReac Type Severity Reaction Status Date / Time No Known Allergies Allergy Verified 11/25/19 11:06 Current Medications Current Medications Generic Name Dose Route Start Last Admin Trade Name Freq PRN Reason Stop Dose Admin Acetaminophen 650 mg 11/25/19 14:02 11/30/19 23:35 Tylenol PO 650 mg Q6H PRN Administration Mild Pain or increased temp Heparin Sodium (Beef Lung) 5,000 unit 11/25/19 15:00 12/03/19 03:58 Heparin SUBCUT 5,000 unit Q12H [facility] Administration Nicotine 1 patch 11/25/19 14:10 12/03/19 07:57 Nicoderm 14 Mg Patch TRANSDERMA Not Given DAILY [facility] Pantoprazole Sodium 40 mg 11/26/19 09:00 12/03/19 07:59 Protonix PO 40 mg DAILY [facility] Administration Sodium Bicarbonate 650 mg 12/02/19 15:00 12/03/19 07:59 Sodium Bicarbonate PO 650 mg TID [facility] Administration PFSH Acute PFSH: Medical History Essential hypertension Heart murmur, systolic Palpitation Surgical History No pertinent past surgical history Family History Other CAD (coronary artery disease) Cancer Diabetes Social History (Updated 12/03/19 @ 11:54 by Emeka Baires MD) Smoking and tobacco status: current every day smoker cigarettes Packs smoked per day: 1 Years cigarettes smoked: 30 Quit status (tobacco): not considering quitting Alcohol intake: current Alcohol intake frequency: few times a month Substance/Drug Use: never Household members: family Marital status: Current occupational status: employed 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 He does not appear to be in any acute distress. The pupils are equal. No carotid bruits are heard. The lungs are clear anteriorly. The heart seems regular, but he may have a faint systolic murmur best heard at the left lower sternal border. The patient has a PICC line on the right side. The abdomen is mildly to moderately obese but is soft. No masses are palpated. The extremities reveal no edema. Neurologically the patient appears to be grossly intact. Data Micro: Micro: Microbiology Blood Culture Final 11/29/19-1005 4 OF 4 POSITIVE FOR GROWTH DIRECT GRAM STAIN: GRAM POSITIVE COCCI IN CLUSTERS FOR SUSCEPTIBILITY RESULTS, SEE [id number]. Organism 1 Staphylococcus aureus Growth IN 4 BOTTLES Gram Stain Charge Charge for Gram Stain CRITICAL RESULT YES/NO: YES CRITICAL CALLED BY: KAITLIN TO AND READ BACK BY: GARRET DATE: 11/27/19 TIME: 95711/27/19 11:30 Blood Culture - Fi nal Blood NO GROWTH AFTER 5 DAYS 11/27/19 11:30 Blood Culture - Fi nal Blood NO GROWTH AFTER 5 DAYS A&P Assessment and plan (1) MARTHA (acute kidney injury): I have been asked to discuss a temporary dialysis catheter with the patient. We discussed a left subclavian temporary dialysis catheter placement and the associated risks of bleeding, pneumothorax, infection, etc. The patient seems to understand and agrees to proceed with dialysis catheter placement. He did eat some scrambled eggs around 730 this morning. As a result, we will drag our feet a little bit but will attempt to get a dialysis catheter in early this afternoon so that dialysis can proceed today as requested by the retail merchandising coordinator.. Status: Acute (2) Hyperkalemia: Status: Acute Consult Attestations Medical Necessity Statement: See admitting service's notation. Coding Level of Care Code Acute Earth Mover for Parmjit Stein Diagnoses MARTHA (acute kidney injury) N17.9 Hyperkalemia E87.5
--- NOTE | 2019-12-03 12:36 | SC_ITS ---
WS: [id number] INTRAOPERATIVE TECHNIQUE: 2 Spot fluoroscopic images for intraoperative purposes. FLUOROSCOPY TIME: 10.5 seconds CLINICAL INFORMATION: dialysis cath placement COMPARISON: None. FINDINGS: Right central venous catheter with tip in good position in the mid to distal SVC. No visualized pneum othorax. SC/C-arm FL for CVA [id number] IMPRESSION: Images obtained for intraoperative purposes.
--- NOTE | 2019-12-03 12:48 | ANES.PREANE2 ---
Pre-Anesthetic Assessment Pre-Anesthetic Assessment: Height/Weight: Height 1.83 m Weight 123.009 kg Temp Pulse Resp BP Pulse Ox 97.8 F 72 18 161/74 99 12/03/19 11:24 12/03/19 11:24 12/03/19 11:24 12/03/19 11:24 12/03/19 11:24 Preop Diagnosis: r/o endocarditis Proposed Procedure: Operation Date: 11/29/19 07:00 Proposed Procedures p ALE(Not Applicable) - Veronica Sher MD Operation Date: 12/03/19 13:00 Proposed Procedures p Dialysis Catheter Insertion(Not Applicable) - Emeka Baires MD Social: Social History: Alcohol (occ) and Tobacco Exam: Pre-Anes Outpt Exam: alert, oriented x 3, clear to auscultation bilaterally and regular rate & rhythm Airway: Submandibular: WNL Cervical ROM: WNL MP: 3 Dentition: False (upper and lower) History/ROS: No significant history except as noted Pulmonary: Pulmonary: COPD and MUKHERJEE CV/HEM: CV/HEM: HTN Comments: AI : Comments: ARF Hepatic: Hepatic: None reported GI: GI: None reported Metabolic: Metabolic: Morbid obesity Musc/skel: Musc/skel: None reported Neuropsych: Neuropsych: None reported Anesthetic Plan: ASA status: 4 Anesthesia: Anesthesia Evaluation and MAC Risk of > 500 ml blood loss (7ml/kg in children): No Meds/Allergies Current Medications: Current Medications Generic Name Dose Route Start Last Admin Trade Name Freq PRN Reason Stop Dose Admin Acetaminophen 650 mg 11/25/19 14:02 11/30/19 23:35 Tylenol PO 650 mg Q6H PRN Administration Mild Pain or incr eased temp Heparin Sodium (Be ef Lung) 5,000 unit 11/25/19 15:00 12/03/19 03:58 Heparin SUBCUT 5,000 unit Q12H [facility] Administration Nafcillin Sodium 1 ,000 mg/ 50 mls @ 50 mls/h r 12/03/19 12:00 12/03/19 11:48 Sodium Chloride IV 50 mls/hr Q4H [facility] Administration Nicotine 1 patch 11/25/19 14:10 12/03/19 07:57 Nicoderm 14 Mg P atch TRANSDERMA Not Given DAILY [facility] Pantoprazole [place] m 40 mg 11/26/19 09:00 12/03/19 07:59 Protonix PO 40 mg DAILY [facility] Administration Sodium Bicarbonate 650 mg 12/02/19 15:00 12/03/19 07:59 Sodium Bicarbona te PO 650 mg TID [facility] Administration Additional Medication Information: Current Medications Acetaminophen (Tylenol) 650 mg PO Q6H PRN PRN Reason: Mild Pain or increased temp Last Admin: 11/29/19 03:33 Dose: 650 mg Documented by: Albuterol Sulfate (Albuterol) 2.5 mg INHALATION ONCE PRN PRN Reason: WHEEZING Doxycycline Monohydrate (Vibramycin) 100 mg PO BID [facility]; Protocol Last Admin: 11/29/19 17:31 Dose: 100 mg Documented by: Famotidine (Pepcid Inj) 20 mg IVP ONCE PRN PRN Reason: HEARTBURN Fentanyl (Sublimaze) 50 mcg IVP Q10M PRN PRN Reason: Preop Pain Fentanyl (Sublimaze) 100 mcg IVP ONCE PRN PRN Reason: Per anesthesia for block Heparin Sodium (Beef Lung) (Heparin) 5,000 unit SUBCUT Q12H [facility] Last Admin: 11/29/19 13:11 Dose: Not Given Documented by: Potassium Chloride/Sodium Chloride (Sodium Chlor 0.9% + Kcl 20 Meq) 20 meq in 1,000 mls @ 125 mls/hr IV .Q8H [facility] Last Admin: 11/29/19 13:32 Dose: 125 mls/hr Documented by: Sodium Chloride (Sodium Chloride 0.9%) 1,000 mls @ 30 mls/hr IV .Q24H [facility] Stop: 11/30/19 07:44 Last Infusion: 11/29/19 08:51 Dose: Infused Documented by: Nafcillin Sodium 1,000 mg/ (Sodium Chloride) 50 mls @ 100 mls/hr IV Q4H [facility] Last Admin: 11/29/19 17:32 Dose: 100 mls/hr Documented by: Ipratropium [place] (Atrovent Neb) 0.5 mg INHALATION ONCE PRN PRN Reason: WHEEZING Lidocaine HCl (Lidocaine 1%) 0.1 ml INTRADERMA PRN PRN PRN Reason: anesthetic prior to IV start Stop: 11/30/19 07:35 Lidocaine HCl (Lidocaine 2% Viscous) 1 ml TOPICAL PRN PRN PRN Reason: Anesthetic prior to IV start Lorazepam (Ativan) 1 mg IVP Q6H PRN PRN Reason: ANXIETY Metoclopramide HCl (Reglan) 10 mg IVP ONCE PRN PRN Reason: N/V if zofran ineffective Midazolam HCl (Versed) 2 mg IVP Q5M PRN PRN Reason: Preop Anxiety Midazolam HCl (Versed) 5 mg IVP ONCE PRN PRN Reason: Per anesthesia for block Nicotine (Nicoderm 14 Mg Patch) 1 patch TRANSDERMA DAILY [facility] Last Admin: 11/28/19 09:03 Dose: 1 patch Documented by: Ondansetron HCl (Zofran) 4 mg IVP Q6H PRN PRN Reason: NAUSEA AND VOMITING Ondansetron HCl (Zofran) 4 mg IVP Q5M PRN PRN Reason: NAUSEA AND VOMITING Pantoprazole Sodium (Protonix) 40 mg PO DAILY [facility] Last Admin: 11/28/19 09:03 Dose: 40 mg Documented by: Potassium Chloride (Klor-Con 10) 40 meq PO DAILY [facility] Last Admin: 11/28/19 09:03 Dose: 40 meq Documented by: Scopolamine (Transderm-Scop) 1 patch TRANSDERMA ONCE PRN PRN Reason: Nausea/ Vomiting Prophylaxis PFSH Anesthesia PFSH: Medical History Essential hypertension Heart murmur, systolic Palpitation Surgical History No pertinent past surgical history Family History Other CAD (coronary artery disease) Cancer Diabetes Social History Smoking and tobacco status: current every day smoker cigarettes Packs smoked per day: 1 Years cigarettes smoked: 30 Quit status (tobacco): not considering quitting Alcohol intake: current Alcohol intake frequency: few times a month Substance/Drug Use: never Household members: family Marital status: Current occupational status: employed 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 History of recent travel: No Current gender identity: Male Data Anesthesia CBC & Chem 7: 12/03/19 04:43 12/03/19 04:43 Other Labs: Laboratory Results - last 48 hr 12/02/19 12/02/19 12/02/19 02:41 02:41 03:41 WBC 8.2 RBC 3.09 L Hgb 9.4 L Hct 29.5 L MCV 95.5 H MCH 30.4 MCHC 31.9 RDW 14.4 Plt Count 258 MPV 11.3 H Neut % (Auto) 59.1 Lymph % (Auto) 27.2 [place] % (Auto) 11.4 Eos % (Auto) 0.9 Baso % (Auto) 0.2 Neut # (Auto) 4.84 Lymph # (Auto) 2.2 [place] # (Auto) 0.9 Eos # (Auto) 0.1 Baso # (Auto) 0.0 Nucleated RBC % (auto) 0 Nucleated RBCs # 0.0 Sodium 129 L Potassium 5.5 H Chloride 108 H Carbon Dioxide 13 L Anion Gap 13.5 BUN 61 H Creatinine 3.9 H GFR Calculation 16.7 L Glucose 103 Calculated Osmolality 267 L Uric Acid 8.2 H Calcium 6.9 L Total Bilirubin 0.3 AST 26 ALT 71 H Alkaline Phosphatase 93 Creatine Kinase 23 L Total Protein 5.2 L Albumin 2.0 L Globulin 3.2 Urine Color Urine Appearance Urine pH Ur Specific [place] Urine Protein Urine Glucose (UA) Urine Ketones Urine Blood Urine Nitrate Urine Bilirubin Urine Urobilinogen Ur Leukocyte Esterase Urine RBC Urine WBC Ur Squamous Epith Cells Triple Phos Crystals Amorphous Sediment Urine Bacteria Hyaline Casts Fine Granular Casts Urine Mucus Ur Random Sodium Ur Random Urea Nitrogn Urine Creatinine 12/02/19 12/02/19 12/03/19 14:45 14:45 04:43 WBC 7.5 RBC 3.06 L Hgb 9.4 L Hct 29.7 L MCV 97.1 H MCH 30.7 MCHC 31.6 RDW 14.4 Plt Count 350 MPV 11.1 H Neut % (Auto) 63.8 Lymph % (Auto) 22.2 [place] % (Auto) 11.6 Eos % (Auto) 1.2 Baso % (Auto) 0.3 Neut # (Auto) 4.79 Lymph # (Auto) 1.7 [place] # (Auto) 0.9 Eos # (Auto) 0.1 Baso # (Auto) 0.0 Nucleated RBC % (auto) 0 Nucleated RBCs # 0.0 Sodium Potassium Chloride Carbon Dioxide Anion Gap BUN Creatinine GFR Calculation Glucose Calculated Osmolality Uric Acid Calcium Total Bilirubin AST ALT Alkaline Phosphatase Creatine Kinase Total Protein Albumin Globulin Urine Color Yellow Urine Appearance Hazy A Urine pH 5 Ur Specific [place] 1.015 Urine Protein 1+ H Urine Glucose (UA) Norm Urine Ketones Negative Urine Blood 3+ H Urine Nitrate Negative Urine Bilirubin Neg Urine Urobilinogen Norm Ur Leukocyte Esterase Trace H Urine RBC 25-40 H Urine WBC 10-15 H Ur Squamous Epith Cells None Triple Phos Crystals 5-10 H Amorphous Sediment Not Reportable Urine Bacteria 1+ H Hyaline Casts 0-4 H Fine Granular Casts 0-4 H Urine Mucus - Ur Random Sodium < 10 Ur Random Urea Nitrogn 573 Urine Creatinine 136 12/03/19 04:43 WBC RBC Hgb Hct MCV MCH MCHC RDW Plt Count MPV Neut % (Auto) Lymph % (Auto) [place] % (Auto) Eos % (Auto) Baso % (Auto) Neut # (Auto) Lymph # (Auto) [place] # (Auto) Eos # (Auto) Baso # (Auto) Nucleated RBC % (auto) Nucleated RBCs # Sodium 132 L Potassium 5.7 H Chloride 109 H Carbon Dioxide 12 L Anion Gap 16.7 BUN 66 H Creatinine 4.6 H GFR Calculation 13.8 L Glucose 75 Calculated Osmolality 272 L Uric Acid Calcium 7.9 L Total Bilirubin 0.3 AST 24 ALT 57 H Alkaline Phosphatase 88 Creatine Kinase Total Protein 5.3 L Albumin 2.1 L Globulin 3.2 Urine Color Urine Appearance Urine pH Ur Specific [place] Urine Protein Urine Glucose (UA) Urine Ketones Urine Blood Urine Nitrate Urine Bilirubin Urine Urobilinogen Ur Leukocyte Esterase Urine RBC Urine WBC Ur Squamous Epith Cells Triple Phos Crystals Amorphous Sediment Urine Bacteria Hyaline Casts Fine Granular Casts Urine Mucus Ur Random Sodium Ur Random Urea Nitrogn Urine Creatinine Micro: Microbiology 11/27/19 11:30 Blood Culture - Final Blood NO GROWTH AFTER 5 DAYS 11/27/19 11:30 Blood Culture - Final Blood NO GROWTH AFTER 5 DAYS Cardiac Studies: No Data to Display
[2019-12-03] MEDS: sodium chloride 0.9% 1,000 ML 30 ML IV (13:00)
[2019-12-03] MEDS: sodium chloride 0.9% 1,000 ML 100 ML IV (13:05)
--- NOTE | 2019-12-03 13:13 | PC.RESP ---
Smoking Cessation information sent to patient.
[2019-12-03] MEDS: heparin, porcine 1,000 unit/mL INJ 10 mL 10000 UNIT HE (13:26)
--- NOTE | 2019-12-03 13:42 | P.OP_ITS ---
Operative Report Date of procedure: December 03, 2019 Pre-op Diagnosis: Acute kidney injury, hyperkalemia. Post-op diagnosis: same Procedure Done: Insertion of 12 [place] dual-lumen 20 cm temporary hemodialysis catheter into the left subclavian vein with intraoperative fluoroscopy interpretation. Pathology: none sent Surgeon: Emeka Baires Anesthesia: MAC Estimated blood loss (mL): 5 Complications: None. Condition: stable Disposition: PACU Procedure: The patient was brought to the operating room and was placed in a supine position on the operating room table. A monitored anesthetic was induced. The left side of the chest and neck were prepped and draped in a sterile fashion. 1% lidocaine was used for local anesthetic. The left subclavian vein was accessed with a needle and syringe as evidenced by the return of dark nonpulsatile blood. The guidewire was easily passed down the needle and the needle was removed. The C-arm was positioned and showed the guidewire extending across to the right side of the chest, but it was found the patient just had a wide mediastinum, and upon advancing the wire further it extended down the vena cava. A scalpel was used to slightly enlarge the skin opening at the insertion point of the J-wire. Small to medium sized dilators were then sequentially placed over the guidewire to dilate the skin and subcutaneous tissue. A 20 [place] dual-lumen 20 cm dialysis catheter was then easily passed over the wire into the vein. The wire was removed. The C-arm was once again positioned and showed dialysis catheter again extending towards the right side of the chest. The catheter was actually withdrawn slightly so that it would not apply pressure to the side of the vena cava given the patient's body habitus. Both ports were aspirated and flushed with hep flush solution. Both ports showed excellent flow and were then left filled with concentrated hep flush solution. The catheter was sewn in place on the chest wall with some interrupted sutures of 2-0 Prolene. A sterile dressing followed. The patient was taken to the recovery area postoperatively in stable condition. INTRAOPERATIVE FLUOROSCOPY interpretation: FINDINGS: Intraoperative fluoroscopic images of a hemodialysis catheter placement were reviewed. Initial images reveal a J-wire entering the left subclavian vein and eventually extending down the vena cava. Subsequent images reveal a dialysis catheter on that side of the chest with its tubing tip in the superior aspect of the superior vena cava. No obvious pneumothorax is identified.
[2019-12-03 14:55] LABS: Potassium 5.2 mmol/L (3.5-5.1)
--- NOTE | 2019-12-03 20:50 | PM.PN ---
Subjective Subjective: Interval history: Patient has had worsening renal function. No chest pain or worsening SOB Medications: Reviewed: Yes Medication Review Details: Current Medications Acetaminophen (Tylenol) 650 mg PO Q6H PRN PRN Reason: Mild Pain or increased temp Last Admin: 11/30/19 23:35 Dose: 650 mg Documented by: Aspirin (Aspirin Ec) 81 mg PO DAILY [facility] Heparin Sodium (Beef Lung) (Heparin) 5,000 unit SUBCUT Q12H [facility] Last Admin: 12/03/19 14:47 Dose: Not Given Documented by: Nafcillin Sodium 1,000 mg/ (Sodium Chloride) 50 mls @ 50 mls/hr IV Q4H [facility] Last Admin: 12/03/19 17:06 Dose: 50 mls/hr Documented by: Nicotine (Nicoderm 14 Mg Patch) 1 patch TRANSDERMA DAILY [facility] Last Admin: 12/03/19 07:57 Dose: Not Given Documented by: Ondansetron HCl (Zofran) 4 mg IVP Q6H PRN PRN Reason: NAUSEA AND VOMITING Pantoprazole Sodium (Protonix) 40 mg PO DAILY [facility] Last Admin: 12/03/19 07:59 Dose: 40 mg Documented by: Sodium Bicarbonate (Sodium Bicarbonate) 650 mg PO TID [facility] Last Admin: 12/03/19 15:33 Dose: 650 mg Documented by: Vitals/I&O/Wt Last Vital Signs Temp 97.4 F L 12/03/19 15:22 Pulse 70 12/03/19 15:22 Resp 22 H 12/03/19 15:22 BP 155/75 12/03/19 15:22 Pulse Ox 97 12/03/19 15:22 12/03/19 12/03/19 12/03/19 06:59 14:59 22:59 Intake Total 400 / 3600 630 / 630 360 / 990 Output Total 630 / 1780 355 / 355 475 / 830 Balance -230 / 1820 275 / 275 -115 / 160 Weight last 48 hrs Weight 271 lb 3 oz Weight 249 lb 6 oz Physical Exam Narrative: EXAM NARRATIVE: Gen: NAD HEENT: No pallor, icterus, PERRL. No JVD RS: CTAB/L, No wheezing, rhonchi or rales CVS: S1, S2 normal; No murmur, rub or gallop KILN DOOR REPAIRER: AAOx3, No FND Data : 12/03/19 04:43 12/03/19 14:30 A&P Assessment and plan (1) Septicemia due to Staphylococcus aureus: MSSA sepsis; on antibiotics as per primary team. Status: Acute (2) MARTHA (acute kidney injury): -was started on dialysis today. Status: Acute (3) Aortic regurgitation: Mid to moderate AI Status: Acute Qualifiers: Cardiac valve disease etiology: nonrheumatic Qualified Code(s): I35.1 - Nonrheumatic aortic (valve) insufficiency (4) Dilated aortic root: CTA aorta at a later date to evaluate for aortopathy as an outpatient. Status: Acute (5) Bicuspid aortic valve: Screening of first degree relative recommended and communicated with patient and . -f/u as an outpatient in 6-8 weeks -I will sign off Status: Acute Attestations Medical Necessity Statement*: As per primary team. Coding Level of Care Code Acute Lactation Nurse for g Fwd Diagnoses Septicemia due to Staphylococcus aureus A41.01 MARTHA (acute kidney injury) N17.9 Aortic regurgitation I35.1 Cardiac valve disease etiology: nonrheumatic Dilated aortic root I77.810 Bicuspid aortic valve Q23.1
[2019-12-04] VITALS: BP 171/69; PULSE 68; RESP 20; TEMP 36.9; O2SAT 97
[2019-12-04 03:51] VITALS: BP 173/62; PULSE 72; RESP 20; TEMP 36.7; O2SAT 97
[2019-12-04] MEDS: heparin 5,000 unit/mL INJ 1 mL 5000 UNIT SUBCUT ×2 (03:57→16:36)
[2019-12-04 05:49] LABS: Basophils % 0.3 %; Eosinophils # 0.1 10^3/uL (0.0-0.8); Eosinophils % 1.1 %; Hemoglobin 9.1 g/dL (11.7-16.6); Lymphocytes # 1.4 10^3/uL (0.8-4.8); Mean Corpuscular HGB Conc 32.5 g/dL (30.0-36.0); Mean Corpuscular Hemoglobin 30.6 pg (28.0-34.0); Mean Corpuscular Volume 94.3 fL (80-94); Mean Platelet Volume 10.9 fL (7.4-10.4); Monocytes # 0.9 10^3/uL (0.2-0.9); Neutrophils # 4.87 10^3/uL (1.8-7.7); Neutrophils % 67.2 %; Nucleated Red Blood Cells % 0 %; Platelet Count 387 10^3/cmm (130-400); Red Blood Count 2.97 10^6/uL (4.1-5.3); White Blood Count 7.3 10^3/uL (4.0-10.0)
[2019-12-04 06:11] LABS: Alanine Aminotransferase 43 U/L (0-41); Albumin Level 2.2 g/dL (3.5-5.2); Alkaline Phosphatase 82 IU/L (40-130); Anion Gap 16.3 (5-19); Aspartate Amino Transferase 25 U/L (0-40); Blood Urea Nitrogen 40 mg/dL (6-20); Carbon Dioxide 18 mmol/L (22-29); Chloride 104 mmol/L (98-107); Glomerular Filtration Rate 20.2 mL/min (90-130); Glucose 79 mg/dL (65-115); Osmolality Calculated 275 mOsm/kg (285-295); Potassium 4.3 mmol/L (3.5-5.1); Sodium 134 mmol/L (136-145); Total Bilirubin 0.3 mg/dL (0.15-1.2); Total Protein 5.2 g/dL (6.6-8.7)
[2019-12-04 07:42] VITALS: BP 152/72; PULSE 74; RESP 20; TEMP 36.7; O2SAT 97
--- NOTE | 2019-12-04 08:15 | PM.PN ---
Subjective Subjective: Interval history: Feels a little better with less edema today. No SOB. No uremic Sx. Good UO. No fevers, chills, pain or uremic Sx. Dialysis yesterday uneventful Medications: Reviewed: Yes Medication Review Details: Current Medications Acetaminophen (Tylenol) 650 mg PO Q6H PRN PRN Reason: Mild Pain or increased temp Last Admin: 11/30/19 23:35 Dose: 650 mg Documented by: Aspirin (Aspirin Ec) 81 mg PO DAILY [facility] Heparin Sodium (Beef Lung) (Heparin) 5,000 unit SUBCUT Q12H [facility] Last Admin: 12/03/19 14:47 Dose: Not Given Documented by: Nafcillin Sodium 1,000 mg/ (Sodium Chloride) 50 mls @ 50 mls/hr IV Q4H [facility] Last Admin: 12/03/19 17:06 Dose: 50 mls/hr Documented by: Nicotine (Nicoderm 14 Mg Patch) 1 patch TRANSDERMA DAILY [facility] Last Admin: 12/03/19 07:57 Dose: Not Given Documented by: Ondansetron HCl (Zofran) 4 mg IVP Q6H PRN PRN Reason: NAUSEA AND VOMITING Pantoprazole Sodium (Protonix) 40 mg PO DAILY [facility] Last Admin: 12/03/19 07:59 Dose: 40 mg Documented by: Sodium Bicarbonate (Sodium Bicarbonate) 650 mg PO TID [facility] Last Admin: 12/03/19 15:33 Dose: 650 mg Documented by: Vitals/I&O/Wt Last Vital Signs Temp 98.1 F 12/04/19 07:42 Pulse 74 12/04/19 07:42 Resp 20 H 12/04/19 07:42 BP 152/72 12/04/19 07:42 Pulse Ox 97 12/04/19 07:42 12/03/19 12/04/19 12/04/19 22:59 06:59 14:59 Intake Total 410 / 1040 530 / 1570 Output Total 475 / 830 300 / 1130 Balance -65 / 210 230 / 440 Weight last 48 hrs Weight 121.818 kg Weight 123.009 kg Physical Exam Narrative: EXAM NARRATIVE: Exam performed with the aid of the bedside RN via telemed Constitutional: Awake, conversant, jovial HEENT: Wet mucosa, no jvp, non icteric Lungs: Bilaterally clear without discernible wheeze, rales in all lung zones CVS: S1 S2, no murmurs Abdo: Soft, BS ok Ext 4: 2-3+ edema, peripheral perfusion with no cyanosis Neurological: Grossly non-focal Data : 12/04/19 05:25 12/04/19 05:25 A&P Additional A&P Information 1. Acute kidney injury. 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 - no indication for dialysis today, am labs for eval - am eval - Avoid the usual nephrotoxic meds. 2. Electrolytes. - Dialysis has helped, am labs 3. MSSA bacteremia - Complicated by embolic showering. This likely explains the renal lesion. Primary source is unclear. - Currently on nafcillin 4. Hemodynamics. - Appears to be stable, we will continue to monitor this closely. Thank you for consultation. As always is a pleasure myself and Dominique to follow these patients with you. Interview and examination was performed with using telemedicine with the assistance of the bedside nurse MD Dominique Schaefer renal care [phone] Attestations Medical Necessity Statement*: eval for renal failure Coding Level of Care Code Acute Vice President Of Consulting Services for Parmjit Stein
[2019-12-04] MEDS: sodium bicarbonate 650 mg Tablet PO ×3 (08:28→20:05)
[2019-12-04] MEDS: aspirin 81 mg EC Tablet PO (08:29)
[2019-12-04] MEDS: pantoprazole DR 40 mg Tablet PO (08:29)
--- NOTE | 2019-12-04 08:41 | PM.PN ---
Subjective Subjective: Interval history: The patient has no complaints this morning. He underwent dialysis last night. The dialysis nurse called me last night and said that she was having some trouble drawing from the dialysis catheter. I explained that the patient's mediastinum was quite wide and I had a hard time getting the longest catheter that we had available to actually make the turn inferiorly in the vena cava so I pulled it back a little bit so it would not be pushing on the right side of the vena cava; consequently it was situated somewhat horizontally. I suspect it was still up against the side of the vena cava. I instructed her to pull it out a little bit further, and apparently they had better luck with performing dialysis subsequently. Vitals/I&O/Wt Last Vital Signs Temp 98.1 F 12/04/19 07:42 Pulse 74 12/04/19 07:42 Resp 20 H 12/04/19 07:42 BP 152/72 12/04/19 07:42 Pulse Ox 97 12/04/19 07:42 12/03/19 12/04/19 12/04/19 22:59 06:59 14:59 Intake Total 410 / 1620 580 / 1620 Output Total 475 / 1130 300 / 1130 Balance -65 / 490 280 / 490 Weight last 48 hrs Weight 268 lb 9 oz Weight 271 lb 3 oz Physical Exam Narrative: EXAM NARRATIVE: The dialysis catheter site is unremarkable. The sutures that I placed yesterday have now been removed but the catheter is redressed. Data : 12/04/19 05:25 12/04/19 05:25 A&P Assessment and plan (1) MARTHA (acute kidney injury): Management per hospitalist team/nephrology. I will be available to remove the dialysis catheter when needed. Please call when ready. Status: Acute (2) Hyperkalemia: Status: Acute Attestations Medical Necessity Statement*: See admitting service's notation. Coding Level of Care Code Acute Nutrition Coordinator for Parmjit Stein Diagnoses MARTHA (acute kidney injury) N17.9 Hyperkalemia E87.5
--- NOTE | 2019-12-04 11:27 | PC.CHAP ---
Pastoral Care Encounter/Spiritual Assessment Type of Contact [] Declined tobacco sweeper visit [] Patient/Family/Request visit [] Outpatient visit [] Follow-up visit [] Physician referral [] Code/Alert [X] Routine visit [] Staff referral [] Actively dying [] Patient sleeping [] Family support [] [] Out of room [] Palliative care [] [] Receiving care in room [] Pre-surgical visit [] Trauma [] Long length of stay [] ICU visit [] Other: Relational/Emotional Strength [X] Patient feels connected with others/family/visitors/staff [] Distress [] Loneliness/isolation [] Abandonment Spirituality of Patient [] Person of Kathryn [] Attends Sikh of their Kathryn [X] Believes in Prayer [] Reads Bible or Christianity materials [] There are Spiritual issues to be addressed Earth Science Faculty Member Interventions [] Prayer [X] Active listening [X] Non-anxious presence [] Spiritual/emotional support [] Crisis/trauma care [] Spiritual counseling [] Bereavement support [] Provided bereavement packet [] Provided Bible/devotional materials [] Provided toy/stuffed animal, coloring book to patient or family member [] Provided Communion [] Anointing/[place] [] Salvation [X] Completed spiritual assessment [] Other: Impact on Illness or Injury [] Angry [] Fearful [] Anxious [] Often cries [] Exhaustion [X] Unable to work [] Unable to attend confucianism [] Unable to walk/stand [] Unable to read [] Unable to drive [] Unable to eat/drink [] Unable to sleep [] Unable to be with family [] Patient intubated [] Other: Summary: Offered prayer, but pt preferred that I keep him in prayer rather than pray for him in the room. He hopes to be discharged tomorrow. On Friday, he will go to his employer to complete his [place] paperwork as he will be at home on IV antibiotics for 4-6 more weeks. Time spent with patient: 15 minutes
[2019-12-04 11:48] VITALS: BP 151/70; PULSE 65; RESP 18; TEMP 36.6; O2SAT 98
--- NOTE | 2019-12-04 13:44 | PM.PN ---
Subjective Subjective: Interval history: Underwent dialysis yesterday. Creatinine is improving at 3.3. Hyperkalemia has resolved. No further acute events on telemetry noted. Continues to be afebrile hemodynamically stable blood cultures remain negative. Medications: Reviewed: Yes Vitals/I&O/Wt Last Vital Signs Temp 97.9 F 12/04/19 11:48 Pulse 65 12/04/19 11:48 Resp 18 12/04/19 11:48 BP 151/70 12/04/19 11:48 Pulse Ox 98 12/04/19 11:48 12/03/19 12/04/19 12/04/19 22:59 06:59 14:59 Intake Total 410 / 1040 580 / 1620 360 / 360 Output Total 475 / 830 300 / 1130 100 / 100 Balance -65 / 210 280 / 490 260 / 260 Weight last 48 hrs Weight 121.818 kg Weight 123.009 kg Physical Exam Narrative: EXAM NARRATIVE: GEN: Awake, alert and oriented, no acute distress CVS: S1S2 N RS: CTA B/L Abd: Soft, nt/nd , bs+ TEMPORARY ADMINISTRATIVE ASSISTANT: no focal neuro deficits EXT: LE edema improving today Data : 12/04/19 05:25 12/04/19 05:25 A&P Assessment and plan (1) Septicemia due to Staphylococcus aureus: Status: Acute (2) Fever: - secondary to S. aureus septicemia, now resolved -Noted to have hyponatremia, transaminitis, hypokalemia, significant thrombocytopenia leukocytosis likely as a result of septicemia. -stool studies negative including C.difficile, FOBT negative Status: Acute Qualifiers: Fever type: unspecified Qualified Code(s): R50.9 - Fever, unspecified (3) Acute hyponatremia: Now improving Status: Acute (4) Thrombocytopenia: Status: Acute (5) Leukocytosis: -noted to have neutrophilic predominance, trending down -Persistent gram-positive bacteremia, now appears to be clear as of 11/26 Status: Acute Qualifiers: Leukocytosis type: unspecified Qualified Code(s): D72.829 - Elevated white blood cell count, unspecified (6) Transaminitis: -Noted transaminitis -acute hepatitis panel negative -continue to trend LFTs Status: Acute (7) MARTHA (acute kidney injury): Status: Acute Additional A&P Information # staphylococcus aureus septicemia -blood cx (7/23): 4/4 bottles positive for gram-positive cocci in clusters identified as MSSA, repeat set (11/25) positive for MSSA in 2/4 bottles, repeat set (11/26) negative so far. - Discontinued ceftriaxone and vancomycin on 11/28 - Continue Nafcillin for targetted MSSA treatment , started on 11/28 based on susceptibility results -Echo: EF=58%, mild concentric LVH, no RWMA, TTE with possible small mobile echodensity on non-coronary cusp of aortic valve, at least moderate [place], trace [place], dilated aortic root however s/p ALE 11/28 without any evidence of vegetation. -Source of bacteremia remains unclear at this point. ALE as above. Denies any h/o joint replacements or other orthopedic hardware. Denies any indwelling IV lines. No recurrent SSTIs. CTAP with splenomegaly and renal hypodense lesions with perfusion defects which likely represent septic embolization. No other chest or abdominal source appears apparent. MR imaging unremarkable. Denies any IVDU. HIV status negative - Plan to treat with AT LEAST 6 weeks of iv antibiotics (11/26-01/08) source for complicated endovascular S.aureus infection with likely embolization. Planned discharge home on iv nafcillin via infusion pump, approved by insurance - weekly labs with CBC, CMP while on Nafcillin -f/up with ID clinic when nearing week 5 of abx treatment # MARTHA Vancomycin level peak at 42, trending down, likely also GITA contributing Staph GN likely also contributing Vancomycin has been discontinued as of 11/28 Abx changed to iv nafcillin for directed MSSA rx Status post placement of temporary HD catheter yesterday and 1 HD session. Anasarca is much improved after this. Creatinine trending down to 3.3. Hyperkalemia is resolved. Patient is diuresing well. Will await morning labs tomorrow and then decide if further HD sessions are needed. #Hyperkalemia : resolved # Thrombocytopenia, resolved # hyponatremia, improving -Obesity: BMI-32 kg/m2 -Chronic smoker, 1 PPD, nicotine replacement therapy -Physical deconditioning, due to acute illness with poor oral intake, improving - transaminitis: improving -Dehydration; as noted above -Headache; resolved; pain control as needed -diet as tolerated, NPO for now for catheter placement -DVT ppx with heparin -Dispo: home when medically redsy, home abx infusion arranged for nafcillin with infusion pump -Code status: FULL code s/p Picc line 11/29 Attestations Medical Necessity Statement*: Monitoring renal function, assess for need of any further dialysis sessions. Coding Level of Care Code Acute Remediation Consultant for g Fwd Diagnoses Septicemia due to Staphylococcus aureus A41.01 Fever R50.9 Fever type: unspecified Acute hyponatremia E87.1 Thrombocytopenia D69.6 Leukocytosis D72.829 Leukocytosis type: unspecified Transaminitis R74.0 MARTHA (acute kidney injury) N17.9
[2019-12-04 15:38] VITALS: BP 150/72; PULSE 66; RESP 16; TEMP 37; O2SAT 98
[2019-12-04 20:00] VITALS: BP 135/75; PULSE 70; RESP 18; TEMP 36.9; O2SAT 98
[2019-12-05] VITALS: BP 151/74; PULSE 64; RESP 20; TEMP 36.9; O2SAT 96
[2019-12-05] MEDS: heparin 5,000 unit/mL INJ 1 mL 5000 UNIT SUBCUT ×2 (03:48→15:28)
[2019-12-05 04:00] VITALS: BP 144/65; PULSE 68; RESP 17; TEMP 36.7; O2SAT 99
--- NOTE | 2019-12-05 05:48 | PC.NURSE ---
SHIFT SUMMARY Had a good night. Is hoping to not need dialysis today and can go home. Voiding per urinal. Receiving IV antibiotics as ordered q4h. Had some bleeding from around dialysis catheter site this am when got up. Noted clot forming around site. Did not want to disturb the clot formation so cleaned leakage and dressed with 4x4's over. Catheter does not look as if has migrated out any. Had no labs ordered this am but having dialysis again today vs going home depends on am Creatinine level. Dr Martines was called and ordered BMP for now
[2019-12-05 06:13] LABS: Anion Gap 12.4 (5-19); Blood Urea Nitrogen 42 mg/dL (6-20); Carbon Dioxide 20 mmol/L (22-29); Chloride 105 mmol/L (98-107); Glomerular Filtration Rate 16.7 mL/min (90-130); Glucose 99 mg/dL (65-115); Osmolality Calculated 274 mOsm/kg (285-295); Potassium 4.4 mmol/L (3.5-5.1); Sodium 133 mmol/L (136-145)
--- NOTE | 2019-12-05 06:40 | PM.PN ---
Subjective Subjective: Interval history: feels better. is urinating. no n/v/f/c/jones/d. bleed by dialysis catheter site Medications: Reviewed: Yes Medication Review Details: Current Medications Acetaminophen (Tylenol) 650 mg PO Q6H PRN PRN Reason: Mild Pain or increased temp Last Admin: 11/30/19 23:35 Dose: 650 mg Documented by: Aspirin (Aspirin Ec) 81 mg PO DAILY [facility] Last Admin: 12/04/19 08:29 Dose: 81 mg Documented by: Heparin Sodium (Beef Lung) (Heparin) 5,000 unit SUBCUT Q12H [facility] Last Admin: 12/05/19 03:48 Dose: 5,000 unit Documented by: Nafcillin Sodium 1,000 mg/ (Sodium Chloride) 50 mls @ 50 mls/hr IV Q4H [facility] Last Infusion: 12/05/19 05:06 Dose: Infused Documented by: Nicotine (Nicoderm 14 Mg Patch) 1 patch TRANSDERMA DAILY [facility] Last Admin: 12/04/19 13:48 Dose: Not Given Documented by: Ondansetron HCl (Zofran) 4 mg IVP Q6H PRN PRN Reason: NAUSEA AND VOMITING Pantoprazole Sodium (Protonix) 40 mg PO DAILY [facility] Last Admin: 12/04/19 08:29 Dose: 40 mg Documented by: Sodium Bicarbonate (Sodium Bicarbonate) 650 mg PO TID [facility] Last Admin: 12/04/19 20:05 Dose: 650 mg Documented by: Vitals/I&O/Wt Last Vital Signs Temp 98.1 F 12/05/19 04:00 Pulse 68 12/05/19 04:00 Resp 17 12/05/19 04:00 BP 144/65 12/05/19 04:00 Pulse Ox 99 12/05/19 04:00 12/04/19 12/04/19 12/05/19 14:59 22:59 06:59 Intake Total 460 / 460 400 / 860 300 / 1160 Output Total 300 / 300 525 / 825 600 / 1425 Balance 160 / 160 -125 / 35 -300 / -265 Weight last 48 hrs Weight 121.064 kg Weight 121.818 kg Physical Exam Narrative: EXAM NARRATIVE: obese man comfortable in bed, NARD VSS heent- nc/at, eomi neck supple lung basal crackles heart- reg, +s1, s2, no rub abd soft, nt, nd, +BS ext min edema b/l neuro- a,a, o x 3, no asterixis chest wall dialysis catheter Data : 12/04/19 05:25 12/05/19 05:42 A&P Additional A&P Information 1. Acute kidney injury. 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 - Last HD was 12/03/19- cont to hold dialysis and monitor for renal recovery -cr arely overnight- please keep dialysis catheetr in today - Avoid the usual nephrotoxic meds. 2. Electrolytes. - hyponatremia- likely from MARTHA- stable -fluid restrict k normal met acidosis improving- dec sodium bicarb monitor ca and phos 3. MSSA bacteremia - Complicated by embolic showering. This likely explains the renal lesion. Primary source is unclear. - Currently on nafcillin 4. anemia- likely from bacteremia, ACD, and MARTHA Thank you for consultation. As always is a pleasure myself and [place] to follow these patients with you. Interview and examination was performed with using telemedicine with the assistance of the bedside nurse Attestations Medical Necessity Statement*: bacteremia, MARTHA, anemia Time Spent in Patient Care: 16 - 35 minutes Coding Level of Care Code Acute Cross Tie Turner for Parmjit Stein
[2019-12-05 07:50] VITALS: BP 158/70; PULSE 72; RESP 18; TEMP 36.4; O2SAT 96
--- NOTE | 2019-12-05 08:04 | PM.PN ---
Subjective Subjective: Interval history: The patient is feeling well. He says nursing had to apply a bandage to the dialysis catheter site because there was a small amount of bleeding last night. Vitals/I&O/Wt Last Vital Signs Temp 97.6 F 12/05/19 07:50 Pulse 72 12/05/19 07:50 Resp 18 12/05/19 07:50 BP 158/70 12/05/19 07:50 Pulse Ox 96 12/05/19 07:50 12/04/19 12/05/19 12/05/19 22:59 06:59 14:59 Intake Total 400 / 1160 300 / 1160 Output Total 525 / 1425 600 / 1425 Balance -125 / -265 -300 / -265 Weight last 48 hrs Weight 266 lb 14.4 oz Weight 268 lb 9 oz Physical Exam Narrative: EXAM NARRATIVE: The dialysis catheter has a bandage in place that has a small amount of sanguinous/serosanguineous saturation. Data : 12/04/19 05:25 12/05/19 05:42 A&P Assessment and plan (1) MARTHA (acute kidney injury): Creatinine has bumped up slightly today. Management per hospitalist team/nephrology. Status: Acute (2) Hyperkalemia: Status: Acute Attestations Medical Necessity Statement*: See admitting service's notation. Coding Level of Care Code Acute Semiconductor Testing Group Leader for Parmjit Stein Diagnoses MARTHA (acute kidney injury) N17.9 Hyperkalemia E87.5
[2019-12-05] MEDS: sodium bicarbonate 650 mg Tablet PO ×2 (09:16→17:04)
[2019-12-05] MEDS: pantoprazole DR 40 mg Tablet PO (09:17)
--- NOTE | 2019-12-05 11:11 | PC.CHAP ---
Pastoral Care Encounter/Spiritual Assessment Type of Contact [] Declined clothing cutter visit [] Patient/Family/Request visit [] Outpatient visit [X] Follow-up visit [] Physician referral [] Code/Alert [X] Routine visit [] Staff referral [] Actively dying [] Patient sleeping [] Family support [] [] Out of room [] Palliative care [] [] Receiving care in room [] Pre-surgical visit [] Trauma [] Long length of stay [] ICU visit [] Other: Relational/Emotional Strength [X] Patient feels connected with others/family/visitors/staff [] Distress [] Loneliness/isolation [] Abandonment Spirituality of Patient [] Person of Kathryn [] Attends Episcopal of their [place] [] Believes in Prayer [] Reads Bible or Holiness materials [] There are Spiritual issues to be addressed Packing Tractor Machine Operator Interventions [] Prayer [X] Active listening [] Non-anxious presence [] Spiritual/emotional support [] Crisis/trauma care [] Spiritual counseling [] Bereavement support [] Provided bereavement packet [] Provided Bible/devotional materials [] Provided toy/stuffed animal, coloring book to patient or family member [] Provided Communion [] Anointing/[place] [] Salvation [] Completed spiritual assessment [] Other: Impact on Illness or Injury [] Angry [] Fearful [] Anxious [] Often cries [] Exhaustion [] Unable to work [] Unable to attend restorationist [] Unable to walk/stand [] Unable to read [] Unable to drive [] Unable to eat/drink [] Unable to sleep [] Unable to be with family [] Patient intubated [] Other: Summary: Pt reports protein in urine increased slightly, which is why they kept him another day. He has been able to speak with his family by telephone. He seems to appreciate the visits, but isn't really interested in speaking of spiritual matters. Time spent with patient: 5 mins
--- NOTE | 2019-12-05 11:48 | PM.PN ---
Subjective Subjective: Interval history: No acute events overnight. Patient has remained medically stable. On examination comfortably sitting in chair. Denies of any nausea, vomiting. Labs and vitals noted. Vitals/I&O/Wt Last Vital Signs Temp 97.6 F 12/05/19 07:50 Pulse 72 12/05/19 07:50 Resp 18 12/05/19 07:50 BP 158/70 12/05/19 07:50 Pulse Ox 96 12/05/19 07:50 12/04/19 12/05/19 12/05/19 22:59 06:59 14:59 Intake Total 400 / 860 300 / 1160 240 / 240 Output Total 525 / 825 600 / 1425 Balance -125 / 35 -300 / -265 240 / 240 Weight last 48 hrs Weight 121.064 kg Weight 121.818 kg Physical Exam Narrative: EXAM NARRATIVE: GEN: Awake, alert and oriented, no acute distress CVS: S1S2 N RS: CTA B/L Abd: Soft, nt/nd , bs+ EDI DEVELOPER: no focal neuro deficits EXT: LE edema improving today Data : 12/04/19 05:25 12/05/19 05:42 A&P Assessment and plan (1) Septicemia due to Staphylococcus aureus: Status: Acute (2) Fever: - secondary to S. aureus septicemia, now resolved -Noted to have hyponatremia, transaminitis, hypokalemia, significant thrombocytopenia leukocytosis likely as a result of septicemia. -stool studies negative including C.difficile, FOBT negative Status: Acute Qualifiers: Fever type: unspecified Qualified Code(s): R50.9 - Fever, unspecified (3) Acute hyponatremia: Now improving Status: Acute (4) Thrombocytopenia: Status: Acute (5) Leukocytosis: -noted to have neutrophilic predominance, trending down -Persistent gram-positive bacteremia, now appears to be clear as of 11/26 Status: Acute Qualifiers: Leukocytosis type: unspecified Qualified Code(s): D72.829 - Elevated white blood cell count, unspecified (6) Transaminitis: -Noted transaminitis -acute hepatitis panel negative -continue to trend LFTs Status: Acute (7) MARTHA (acute kidney injury): Status: Acute Additional A&P Information Staphylococcus aureus septicemia -blood cx (11/24): 4/4 bottles positive for gram-positive cocci in clusters identified as MSSA, repeat set (11/25) positive for MSSA in 2/4 bottles, repeat set (11/26) negative so far. . - Discontinued ceftriaxone and vancomycin on 11/28 - Continue Nafcillin for targetted MSSA treatment , started on 11/28 based on susceptibility results. -Echo: EF=58%, mild concentric LVH, no RWMA, TTE with possible small mobile echodensity on non-coronary cusp of aortic valve, at least moderate AR, trace UT, dilated aortic root however s/p ALE 11/28 without any evidence of vegetation. -Source of bacteremia remains unclear at this point. ALE as above. Denies any h/o joint replacements or other orthopedic hardware. Denies any indwelling IV lines. No recurrent SSTIs. CTAP with splenomegaly and renal hypodense lesions with perfusion defects which likely represent septic embolization. No other chest or abdominal source appears apparent. MR imaging unremarkable. Denies any IVDU. HIV status negative - Plan to treat with AT LEAST 6 weeks of IV antibiotics (11/26-01/08) source for complicated endovascular S.aureus infection with likely embolization. 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 Vancomycin has been discontinued as of 11/28 Abx changed to iv nafcillin for directed MSSA rx Status post placement of temporary HD catheter yesterday and 1 HD session. Anasarca is much improved after this. Creatinine trending down to 3.3. Hyperkalemia is resolved. Patient is diuresing well. Appreciate nephrology recommendations. Plan to monitor renal function in next 24 hours as creatinine mildly elevated today. #Hyperkalemia : resolved # Thrombocytopenia, resolved # hyponatremia, improving -Obesity: BMI-32 kg/m2 -Chronic smoker, 1 PPD, nicotine replacement therapy -Physical deconditioning, due to acute illness with poor oral intake, improving - transaminitis: improving -Dehydration; as noted above -Headache; resolved; pain control as needed Full code Renal diet DVT ppx with heparin Dispo: home when medically redsy, home abx infusion arranged for nafcillin with infusion pump s/p Picc line 11/29 Attestations Medical Necessity Statement*: MARTHA requiring dialysis, statin for his bacteremia Time Spent in Patient Care: Greater than 35 minutes (>than 50% of time spent in counselling and/or direct pt care on unit). Coding Level of Care Code Acute [employer] for g Fwd Diagnoses Septicemia due to Staphylococcus aureus A41.01 Fever R50.9 Fever type: unspecified Acute hyponatremia E87.1 Thrombocytopenia D69.6 Leukocytosis D72.829 Leukocytosis type: unspecified Transaminitis R74.0 MARTHA (acute kidney injury) N17.9
[2019-12-05 12:00] VITALS: BP 135/71; PULSE 64; RESP 18; TEMP 36.8; O2SAT 98
[2019-12-05 17:00] VITALS: BP 165/70; PULSE 65; RESP 18; TEMP 36.4; O2SAT 99
[2019-12-05 20:00] VITALS: BP 162/78; PULSE 67; RESP 20; TEMP 36.8; O2SAT 97
[2019-12-06] VITALS: BP 161/71; PULSE 60; RESP 20; TEMP 36.8; O2SAT 96
[2019-12-06] MEDS: heparin 5,000 unit/mL INJ 1 mL 5000 UNIT SUBCUT (03:00)
[2019-12-06 04:00] VITALS: BP 142/70; PULSE 70; RESP 20; TEMP 36.8; O2SAT 95
[2019-12-06 05:35] LABS: Basophils % 0.3 %; Eosinophils # 0.1 10^3/uL (0.0-0.8); Eosinophils % 1.3 %; Hematocrit 26.1 % (42.0-52.0); Hemoglobin 8.5 g/dL (11.7-16.6); Lymphocytes # 1.5 10^3/uL (0.8-4.8); Lymphocytes % 21.4 %; Mean Corpuscular HGB Conc 32.6 g/dL (30.0-36.0); Mean Corpuscular Hemoglobin 31.4 pg (28.0-34.0); Mean Corpuscular Volume 96.3 fL (80-94); Mean Platelet Volume 10.4 fL (7.4-10.4); Monocytes # 0.7 10^3/uL (0.2-0.9); Monocytes % 10.1 %; Neutrophils # 4.77 10^3/uL (1.8-7.7); Neutrophils % 66.6 %; Nucleated Red Blood Cells % 0 %; Platelet Count 451 10^3/cmm (130-400); Red Blood Count 2.71 10^6/uL (4.1-5.3); Red Cell Distribution Width 14.1 % (12.1-15.1); White Blood Count 7.2 10^3/uL (4.0-10.0)
[2019-12-06 05:58] LABS: Calcium 7.8 mg/dL (8.5-10.5)
[2019-12-06 05:59] LABS: Alanine Aminotransferase 21 U/L (0-41); Albumin Level 2.1 g/dL (3.5-5.2); Alkaline Phosphatase 65 IU/L (40-130); Anion Gap 13.6 (5-19); Aspartate Amino Transferase 17 U/L (0-40); Blood Urea Nitrogen 37 mg/dL (6-20); Calcium 7.6 mg/dL (8.5-10.5); Carbon Dioxide 21 mmol/L (22-29); Chloride 107 mmol/L (98-107); Ferritin 416 ng/mL (30-400); Globulin 3.4 g/dL (1.3-4.6); Glomerular Filtration Rate 17.2 mL/min (90-130); Glucose 110 mg/dL (65-115); Iron 47 ug/dL (59-158); Magnesium 2.6 mg/dL (1.7-2.3); Osmolality Calculated 282 mOsm/kg (285-295); Percent Saturation 40.8 % (20-50); Phosphorus 6.2 mg/dL (2.5-4.5); Potassium 4.6 mmol/L (3.5-5.1); Sodium 137 mmol/L (136-145); Total Bilirubin 0.2 mg/dL (0.15-1.2); Total Iron Binding Capacity 115 mcg/dl; Total Protein 5.5 g/dL (6.6-8.7); Unsaturated Iron Binding 68 ug/dL (112-347)
[2019-12-06 06:57] LABS: Parathyroid Hormone 48.8 pg/mL (15-65)
--- NOTE | 2019-12-06 07:03 | PM.PN ---
Subjective Subjective: Interval history: The patient is feeling well today. Vitals/I&O/Wt Last Vital Signs Temp 98.2 F 12/06/19 04:00 Pulse 70 12/06/19 04:00 Resp 20 H 12/06/19 04:00 BP 142/70 12/06/19 04:00 Pulse Ox 95 12/06/19 04:00 12/05/19 12/06/19 12/06/19 22:59 06:59 14:59 Intake Total 580 / 1090 50 / 1090 Output Total 0 / 800 800 / 800 Balance 580 / 290 -750 / 290 Weight last 48 hrs Weight 266 lb 1.6 oz Weight 266 lb 14.4 oz Physical Exam Narrative: EXAM NARRATIVE: Exam essentially unchanged. Data : 12/06/19 05:20 12/06/19 05:20 A&P Assessment and plan (1) MARTHA (acute kidney injury): Creatinine appears to be fairly stable. Management per hospitalist team/nephrology. Possible discharge later today. Status: Acute (2) Hyperkalemia: Resolved. Status: Acute Attestations Medical Necessity Statement*: See admitting service's notation. Coding Level of Care Code Acute Miter Cutter for [facility] Diagnoses MARTHA (acute kidney injury) N17.9 Hyperkalemia E87.5
--- NOTE | 2019-12-06 07:14 | PM.PN ---
Subjective Subjective: Interval history: feels better. wants to go home. no n/v/f/c/jones/d/sob. dec leg edema Medications: Reviewed: Yes Medication Review Details: Current Medications Acetaminophen (Tylenol) 650 mg PO Q6H PRN PRN Reason: Mild Pain or increased temp Last Admin: 11/30/19 23:35 Dose: 650 mg Documented by: Aspirin (Aspirin Ec) 81 mg PO DAILY FOR[facility]LY [facility], [facility]1983 Last Admin: 12/05/19 09:17 Dose: Not Given Documented by: Heparin Sodium (Beef Lung) (Heparin) 5,000 unit SUBCUT Q12H FOR[facility]LY [facility], [facility]1983 Last Admin: 12/06/19 03:00 Dose: 5,000 unit Documented by: Nafcillin Sodium 1,000 mg/ (Sodium Chloride) 50 mls @ 50 mls/hr IV Q4H [facility], [facility] Last Admin: 12/06/19 04:39 Dose: 50 mls/hr Documented by: Nicotine (Nicoderm 14 Mg Patch) 1 patch TRANSDERMA DAILY [facility]LY [facility], [facility]1983 Last Admin: 12/05/19 09:17 Dose: Not Given Documented by: Ondansetron HCl (Zofran) 4 mg IVP Q6H PRN PRN Reason: NAUSEA AND VOMITING Pantoprazole Sodium (Protonix) 40 mg PO DAILY [facility] Last Admin: 12/05/19 09:17 Dose: 40 mg Documented by: Sodium Bicarbonate (Sodium Bicarbonate) 650 mg PO BID [facility] Last Admin: 12/05/19 17:04 Dose: 650 mg Documented by: Vitals/I&O/Wt Last Vital Signs Temp 98.2 F 12/06/19 04:00 Pulse 70 12/06/19 04:00 Resp 20 H 12/06/19 04:00 BP 142/70 12/06/19 04:00 Pulse Ox 95 12/06/19 04:00 12/05/19 12/06/19 12/06/19 22:59 06:59 14:59 Intake Total 580 / 1040 50 / 1090 Output Total 0 / 0 800 / 800 Balance 580 / 1040 -750 / 290 Weight last 48 hrs Weight 120.701 kg Weight 121.064 kg Physical Exam Narrative: EXAM NARRATIVE: obese man comfortable in bed, NARD VSS heent- nc/at, eomi neck supple lung- improved airmovement b/l, trace basal crackles heart- reg, +s1, s2, no rub abd soft, nt, nd, +BS ext 1+ calf edema b/l neuro- a,a, o x 3, no asterixis chest wall dialysis catheter Data : 12/06/19 05:20 12/06/19 05:20 A&P Additional A&P Information 1. Acute kidney injury. 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 - Last HD was 12/03/19- cont to hold dialysis and monitor for renal recovery -cr stable, non-oliguric. -please remove dialysis catheter today - Avoid the usual nephrotoxic meds. -monitor uop and chemistries, cr -on d/c needs renal f/u 2. Electrolytes. - hyponatremia- likely from MARTHA- improved -fluid restrict k normal met acidosis-cont sodium bicarb monitor ca and phos- start phoslo and monitor pth 48 3. MSSA bacteremia - Complicated by embolic showering. This likely explains the renal lesion. Primary source is unclear. - Currently on nafcillin -vanco level was very high 4. anemia- likely from bacteremia, ACD, and MARTHA high sat, ferritin 416 -if renal fxn dose not improve, then consider epo. 5. BP stable Thank you for consultation. As always is a pleasure myself and [place] to follow these patients with you. Interview and examination was performed with using telemedicine with the assistance of the bedside nurse Attestations Medical Necessity Statement*: per hospitalist. MARTHA improving Time Spent in Patient Care: 16 - 35 minutes Coding Level of Care Code Acute Eye Physician for Parmjit Stein
[2019-12-06 07:58] VITALS: BP 163/78; PULSE 74; RESP 20; TEMP 36.6; O2SAT 99
[2019-12-06] MEDS: calcium acetate 667 mg Capsule PO ×2 (08:13→11:54)
[2019-12-06] MEDS: pantoprazole DR 40 mg Tablet PO (08:14)
[2019-12-06] MEDS: sodium bicarbonate 650 mg Tablet PO (08:14)
[2019-12-06] MEDS: aspirin 81 mg EC Tablet PO ×2 (10:03→10:04)
[2019-12-06 11:27] VITALS: BP 153/72; PULSE 69; RESP 20; TEMP 36.7; O2SAT 98
--- NOTE | 2019-12-06 12:53 | PM.DCS ---
Discharge Providers Date of Admission: 11/25/19 12:16 Date of Discharge: December 06, 2019 Attending Provider at Admission: Katey Martinez MD Attending Provider at Discharge: Latonya Martini MD Primary Care Provider: Eugene Kee PA-C Diagnoses at Discharge Discharge Diagnosis (1) Septicemia due to Staphylococcus aureus: Status: Acute Problem details: present on admission (2) Hyperkalemia: Status: Resolved (3) Bicuspid aortic valve: Status: Acute (4) Aortic regurgitation: Status: Acute Qualifiers: Cardiac valve disease etiology: nonrheumatic Qualified Code(s): I35.1 - Nonrheumatic aortic (valve) insufficiency (5) Acute hyponatremia: Status: Resolved (6) Thrombocytopenia: Status: Resolved (7) Transaminitis: Status: Resolved (8) Leukocytosis: Status: Resolved Qualifiers: Leukocytosis type: unspecified Qualified Code(s): D72.829 - Elevated white blood cell count, unspecified (9) Acute renal failure (ARF): Status: Acute Reason for Visit Reason for Visit: H/A Hospital Course Discharge Summary: Chip Ramirez is a 49 year old male with no significant PMHx presents from home accompanied by evaluation of ongoing malaise, fever, diaphoresis, generalized weakness, headache for 5 days prior to admission. Work-up upon admission was remarkable for leukocytosis with neutrophilic predominance, white count of 18.4, normal hemoglobin at 14.6, significant thrombocytopenia with a platelet count of 36, hyponatremia with a sodium of 125, hypokalemia with a potassium of 3.1, BUN of 16, creatinine of 1.0, blood glucose of 133, noted transaminitis, CRP of 254.8. Blood cultures eventually returned positive for MSSA after which antibiotics were narrowed. COVID-19 tested but was negative. Hospital course was complicated by acute renal failure and hyperkalemia which required dialysis on December 02. Since then acidosis, hyperkalemia resolved. Kidney function has stabilized at around 3.8. Patient continues to have good urine output. He is being discharged with recommendations to follow-up with nephrology and weekly labs are still to continue. Details as below: # Staphylococcus aureus septicemia -blood cx (11/24): 4/4 bottles positive for gram-positive cocci in clusters identified as MSSA, repeat set (11/25) positive for MSSA in 2/4 bottles, repeat set (11/26) negative. . - Discontinued ceftriaxone and vancomycin on 11/28 - Changed to Nafcillin for targetted MSSA treatment , started on 11/28 based on susceptibility results. -Echo: EF=58%, mild concentric LVH, no RWMA, TTE with possible small mobile echodensity on non-coronary cusp of aortic valve, at least moderate AR, trace NC, dilated aortic root however s/p ALE 11/28 without any evidence of vegetation. -Source of bacteremia remains unclear at this point. ALE as above. Denies any h/o joint replacements or other orthopedic hardware. Denies any indwelling IV lines. No recurrent SSTIs. CTAP with splenomegaly and renal hypodense lesions with perfusion defects which likely represent septic embolization. No other chest or abdominal source appears apparent. MR imaging of the back unremarkable. Denies any IVDU. HIV status negative - Plan to treat with AT LEAST 6 weeks of IV antibiotics (11/26-01/08) for complicated endovascular S.aureus infection with likely embolization. Discharge home on iv nafcillin 2gm iv q4h (12gm daily via continuous home infusion pump), approved by insurance - weekly labs with CBC, CMP, ESR while on Nafcillin -f/up with ID clinic on january 10, Picc line will be discontinued after assessment on this day. 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 Anasarca is much improved after this. Creatinine trending down. Hyperkalemia is resolved. Patient is diuresing well. Appreciate nephrology recommendations. #Hyperkalemia : resolved # Thrombocytopenia, as a result of septicemia, splenic infarcts, resolved # hyponatremia, improving -Obesity: BMI-32 kg/m2 -Chronic smoker, 1 PPD, nicotine replacement therapy -Physical deconditioning, due to acute illness with poor oral intake, improving - transaminitis: improving -Dehydration; as noted above -Headache; resolved; pain control as needed Full code Renal diet Dispo: home , home abx infusion arranged for nafcillin with infusion pump s/p Picc line 11/29 Physical Exam Narrative: EXAM NARRATIVE: GEN: Awake, alert and oriented, no acute distress CVS: S1S2 N RS: CTA B/L Abd: Soft, nt/nd , bs+ TAX PROCESSOR: no focal neuro deficits Discharge Data Data Completed and Pending: Completed Studies During Hospitalization Category Date Time Status CT chest abd pel wo/w con Routine Cat Scan 11/27/19 10:[address] head wo con* 7 0450 Urgent Cat Scan 11/25/19 09:54 Completed XR chest 1V clint ble [id number] Routine Exams 12/01/19 10:10 Completed XR chest 1V clint ble [id number] Urgent Exams 11/25/19 10:30 Completed XR chest 1V clint ble [id number] Urgent Exams 12/01/19 11:00 Completed XR chest 1V clint ble [id number] Urgent Exams 12/02/19 17:17 Completed MR cervical spin wo con* [id number] Rout ine MRI 11/30/19 10:59 Completed MR lumbar spine w o con* [id number] Routi ne MRI 11/30/19 10:59 Completed MR thoracic spin wo con* [id number] Rout ine MRI 11/30/19 10:59 Completed CV echo complete* [id number] Routine Ultrasound 11/27/19 10:18 Completed CV echo transesop hageal [id number] Routi ne Ultrasound 11/29/19 06:00 Completed Pending at discharge Category Date Time Status Complete Blood Co unt w/Auto AM LABS Lab 12/07/19 04:00 Ordered Complete Blood Co unt w/Auto AM LABS Lab 12/08/19 04:00 Ordered Comprehensive Met abolic Panel AM LA BS Lab 12/07/19 04:00 Ordered Comprehensive Met abolic Panel AM LA BS Lab 12/08/19 04:00 Ordered Legionella Antibo dy Stat Lab 12/02/19 06:45 Received Magnesium AM LABS Lab 12/07/19 04:00 Ordered Magnesium AM LABS Lab 12/08/19 04:00 Ordered Phosphorus AM LAB S Lab 12/07/19 04:00 Ordered Phosphorus AM LAB S Lab 12/08/19 04:00 Ordered Labs from last 24 hours 12/06/19 12/06/19 12/06/19 05:20 05:20 05:20 WBC 7.2 RBC 2.71 L Hgb 8.5 L Hct 26.1 L MCV 96.3 H MCH 31.4 MCHC 32.6 RDW 14.1 Plt Count 451 H MPV 10.4 Neut % (Auto) 66.6 Lymph % (Auto) 21.4 [place] % (Auto) 10.1 Eos % (Auto) 1.3 Baso % (Auto) 0.3 Neut # (Auto) 4.77 Lymph # (Auto) 1.5 [place] # (Auto) 0.7 Eos # (Auto) 0.1 Baso # (Auto) 0.0 Nucleated RBC % (a uto) 0 Nucleated RBCs # 0.0 Sodium 137 Potassium 4.6 Chloride 107 Carbon Dioxide 21 L Anion Gap 13.6 BUN 37 H Creatinine 3.8 H GFR Calculation 17.2 L Glucose 110 Calculated Osmolal ity 282 L Calcium 7.6 L Phosphorus 6.2 H Magnesium 2.6 H Iron 47 L TIBC 115 % Saturation 40.8 Unsat Iron Binding 68 L Ferritin 416 H Total Bilirubin 0.2 AST 17 ALT 21 Alkaline Phosphata se 65 Total Protein 5.5 L Albumin 2.1 L Globulin 3.4 PTH Intact 48.8 Calcium (PTH Intac t) 7.8 L Vitals: Last Vital Signs Temp 98.0 F 12/06/19 11:27 Pulse 69 12/06/19 11:27 Resp 20 H 12/06/19 11:27 BP 153/72 12/06/19 11:27 Pulse Ox 98 12/06/19 11:27 Discharge Plan Discharge Patient Disposition: Home Health Service Condition: Stable Prescriptions: New acetaminophen 325 mg Tablet 650 mg PO Q6H PRN (Reason: Mild Pain or increased temp) Qty: 0 RF: 0 Calphron 667 mg Tablet 667 mg PO TIDWM 30 Days Qty: 30 RF: 0 nafcillin 2 gram recon soln See Rx Instructions .ROUTE .COMPLEX 42 Days Qty: 1 RF: 0 Continued vitamin B complex [B Complex-Vitamin B12] Tablet 1 tab PO DAILY RF: 0 omega-3 fatty acids [Fish Oil Concentrate] 1,000 mg capsule 1,000 mg PO DAILY RF: 0 aspirin 81 mg tablet,delayed release (DR/EC) 81 mg PO DAILY RF: 0 azithromycin 250 mg tablet See Rx Instructions PO .COMPLEX Qty: 6 RF: 0 albuterol sulfate 90 mcg/actuation HFA aerosol inhaler 2 puff INHALATION Q6H PRN (Reason: shortness of breath or wheezing) Qty: 8.5 RF: 0 Zofran 4 mg Tablet 4 mg PO Q6H PRN (Reason: Nausea) RF: 0 Discontinued zxprrysvczkgoiq-pgeixmely-QC [Bromfed DM] 2-30-10 mg/5 mL syrup 7.5 ml PO Q6H PRN (Reason: cold symptoms) Qty: 160 RF: 0 jtyhltband-zwjzglerwjpnd-zmmd 50-325-40 mg Tablet 1 tab PO Q4H PRN (Reason: Headache) RF: 0 ibuprofen 200 mg Tablet 800 mg PO PRN RF: 0 Discharge Orders: Discharge Order (Routine); Ordered 12/06/19 Ordered By: Latonya Martini Other Ambulatory Orders: Complete Blood Count w/Auto (WEEKLY) Timeframe: 20191213 Location: Determined by Patient Ordered By: Latonya Warehuria Complete Blood Count w/Auto (WEEKLY) Timeframe: 20191214 Location: Determined by Patient Ordered By: Latonya Michelleria Complete Blood Count w/Auto (WEEKLY) Timeframe: 20191215 Location: Determined by Patient Ordered By: Latonya Warehuria Complete Blood Count w/Auto (WEEKLY) Timeframe: 20191216 Location: Determined by Patient Ordered By: Latonya Warehuria Complete Blood Count w/Auto (WEEKLY) Timeframe: 20191217 Location: Determined by Patient Ordered By: Latonya Warehuria Complete Blood Count w/Auto (WEEKLY) Timeframe: 20191218 Location: Determined by Patient Ordered By: Latonya Michleleriwesley Comprehensive Metabolic Panel (WEEKLY) Timeframe: 20191213 Location: Determined by Patient Ordered By: Latonya Michelleria Comprehensive Metabolic Panel (WEEKLY) Timeframe: 20191214 Location: Determined by Patient Ordered By: Latonya Warehuria Comprehensive Metabolic Panel (WEEKLY) Timeframe: 20191215 Location: Determined by Patient Ordered By: Latonya Warehuria Comprehensive Metabolic Panel (WEEKLY) Timeframe: 20191216 Location: Determined by Patient Ordered By: Latonya Warehuria Comprehensive Metabolic Panel (WEEKLY) Timeframe: 20191217 Location: Determined by Patient Ordered By: Latonya Warehuria Comprehensive Metabolic Panel (WEEKLY) Timeframe: 20191218 Location: Determined by Patient Ordered By: Latonya Martini Creatinine (Routine) Timeframe: 3 Days Location: Determined by Patient Ordered By: Latonya Martini Erythrocyte Sedimentation Rate (WEEKLY) Timeframe: 20191213 Facility: [facility] - Location: Lab - Main Lab Ordered By: Latonya Michelleria Erythrocyte Sedimentation Rate (WEEKLY) Timeframe: 20191214 Facility: [facility] - Location: Lab - Main Lab Ordered By: Latonya Kathuria Erythrocyte Sedimentation Rate (WEEKLY) Timeframe: 20191215 Facility: [facility] - Location: Lab - Main Lab Ordered By: Latonya Warehuria Erythrocyte Sedimentation Rate (WEEKLY) Timeframe: 20191216 Facility: [facility] - Location: Lab - Main Lab Ordered By: Latonya Kathuria Erythrocyte Sedimentation Rate (WEEKLY) Timeframe: 20191217 Facility: [facility] - Location: Lab - Main Lab Ordered By: Latonya Kathuria Erythrocyte Sedimentation Rate (WEEKLY) Timeframe: 20191218 Facility: [facility] - Location: Lab - Main Lab Ordered By: Latonya Michelleria Referrals: [facility] [Other] (This is the infusion pharmacy that will be supplying your IV medication. They will send out a nurse to show you how to administer this medication. The nurse will also draw your labs and change the dressing on your PICC line. If you have any questions or concerns regarding your IV medication, please call them at the phone number provided.) [facility] [Other] - 7-10 days (needs appointment faxed referral for appointment with dr flores) Latonya Martini MD [Hospitalist] - 01/11/20 1:00 pm ([phone] SURGICAL SERVICES ) Eugene Kee [Referring] - 1-3 days Discharge Diet: Usual diet Discharge Activity: Resume usual activity Patient Instructions: Calcium Acetate (By mouth), Nafcillin (Injection), Sepsis (GEN) Discharge Date/Time: 12/06/19 15:38 Discharge Attestations Time Spent in Discharge Care*: greater than 30 min Quality Metrics Clinical Quality Measures During this hospital stay, did patient experience: None Coding Level of Care Code Acute Loom Cleaner for Chg Fwd Diagnoses Septicemia due to Staphylococcus aureus A41.01 Hyperkalemia E87.5 Bicuspid aortic valve Q23.1 Aortic regurgitation I35.1 Cardiac valve disease etiology: nonrheumatic Acute hyponatremia E87.1 Thrombocytopenia D69.6 Transaminitis R74.0 Leukocytosis D72.829 Leukocytosis type: unspecified Acute renal failure (ARF) N17.9
[2019-12-06 13:11] VITALS: BP 153/72; PULSE 69; RESP 20; TEMP 36.7; O2SAT 98
[2019-12-07 16:15] LABS: Legionella Antibody <1:256
== END 2019-12-06 15:38 | disposition home health service (06) | DRG 872 ==
LOC: ER 12:22 → MEDSURG 13:21
PROVIDERS: Emergency Medicine; Internal Medicine; Internal Medicine Cardiovascular Disease; Internal Medicine Nephrology; Physician Assistant; Surgery; Admitting Provider Family Medicine; Visit Provider Student in an Organized Health Care Education/Training Program
PROC: (CPT 93312; principal; 2019-11-29 07:00)
PROC: 05H633Z Insertion of Infusion Device into Left Subclavian Vein, Percutaneous Approach (ICD-10-PCS; principal; 2019-12-03 13:00)
DX: A41.01 Sepsis due to Methicillin susceptible Staphylococcus aureus (principal); I76 Septic arterial embolism; N17.9 Acute kidney failure, unspecified; E87.1 Hypo-osmolality and hyponatremia; Q23.1 Congenital insufficiency of aortic valve; E87.6 Hypokalemia; D69.6 Thrombocytopenia, unspecified; I35.1 Nonrheumatic aortic (valve) insufficiency; Z11.59 Encounter for screening for other viral diseases; F17.210 Nicotine dependence, cigarettes, uncomplicated; E66.9 Obesity, unspecified; Z68.36 Body mass index [BMI] 36.0-36.9, adult; E86.0 Dehydration
CPT/HCPCS: 12345; 36415; 36569; 36592; 70450; 71045; 71260; 72141; 72146; 72148; 74178; 77001; 80048; 80053; 80074; 80202; 80500; 81001; 81003; 82274; 82310; 82550; 82570; 82728; 83540; 83550; 83605; 83735; 83970; 84100; 84132; 84300; 84443; 84540; 84550; 85007; 85025; 85027; 85378; 85384; 85610; 85730; 86038; 86140; 86160; 86225; 86618; 86666; 86713; 86757; 87040; 87077; 87086; 87186; 87205; 87493; 87506; 87635; 87806; 93306; 93312; 93320; 93325; 96365; 96372; 96375; 97116; 97161; 99283; J0131; J0610; J0690; J0696; J1644; J1815; J1940; J2060; J2704; J3370; J3480; J3490; J7030; J7050; Q3014; Q9967

== ENCOUNTER 2019-12-08 18:15 | Emergency (ER) | payer OTHER, SELFPAY ==
[2019-12-08 18:23] VITALS: BP 186/76; PULSE 78; RESP 18; TEMP 36.6; O2SAT 98; BMI 31.8
--- NOTE | 2019-12-08 19:00 | XRR_ITS ---
PROCEDURE INFORMATION: Exam: XR Chest, 1 View Exam date and time: 12/08/2019 9:12 PM Age: 49 years old Clinical indication: Prior surgery; Surgery type: Picc line; Patient HX: Systemic infection new onset fever TECHNIQUE: Imaging protocol: XR of the chest Views: 1 view. COMPARISON: CR XR chest 1V portable [id number] 12/02/2019 5:45 PM FINDINGS: Tubes, catheters and devices: Central vascular catheter tip resides at the superior vena cava. Lungs: Lingular interstitial opacity. Suspect calcified granulomata bilaterally. Pleural space: Mild blunting left costophrenic angle. Heart/Mediastinum: Cardiomegaly. Bones/joints: Unremarkable. XR/XR chest 1V portable [id number] IMPRESSION: 1. Lingular infiltrate. 2. Pleural thickening or minimal effusion left costophrenic angle.
[2019-12-08 19:53] LABS: Basophils # 0.1 10^3/uL (0.0-0.1); Basophils % 0.7 %; Eosinophils # 0.1 10^3/uL (0.0-0.8); Eosinophils % 1.2 %; Hematocrit 29.6 % (42.0-52.0); Hemoglobin 9.3 g/dL (11.7-16.6); Lymphocytes # 2.3 10^3/uL (0.8-4.8); Lymphocytes % 22.3 %; Mean Corpuscular HGB Conc 31.4 g/dL (30.0-36.0); Mean Corpuscular Hemoglobin 30.5 pg (28.0-34.0); Mean Platelet Volume 10.1 fL (7.4-10.4); Monocytes % 9.3 %; Neutrophils # 6.75 10^3/uL (1.8-7.7); Neutrophils % 66.1 %; Nucleated Red Blood Cells % 0 %; Platelet Count 535 10^3/cmm (130-400); Red Blood Count 3.05 10^6/uL (4.1-5.3); Red Cell Distribution Width 14.3 % (12.1-15.1); White Blood Count 10.2 10^3/uL (4.0-10.0)
[2019-12-08 20:12] LABS: Lactic Sepsis W/Reflex 0.7 mmol/L (0.5-2.2)
[2019-12-08 20:13] LABS: Alanine Aminotransferase 17 U/L (0-41); Albumin Level 2.7 g/dL (3.5-5.2); Alkaline Phosphatase 67 IU/L (40-130); Anion Gap 15.3 (5-19); Aspartate Amino Transferase 15 U/L (0-40); Blood Urea Nitrogen 29 mg/dL (6-20); Calcium 8.7 mg/dL (8.5-10.5); Carbon Dioxide 20 mmol/L (22-29); Chloride 103 mmol/L (98-107); Globulin 3.7 g/dL (1.3-4.6); Glomerular Filtration Rate 16.7 mL/min (90-130); Glucose 89 mg/dL (65-115); Osmolality Calculated 275 mOsm/kg (285-295); Potassium 4.3 mmol/L (3.5-5.1); Sodium 134 mmol/L (136-145); Total Bilirubin 0.2 mg/dL (0.15-1.2); Total Protein 6.4 g/dL (6.6-8.7)
--- NOTE | 2019-12-08 21:06 | W.ED.FEVER ---
HPI - Fever General: Chief Complaint: Fever Stated Complaint: fever Time Seen by Provider: 12/08/19 20:51 Source: patient and family Mode of arrival: ambulatory Limitations: no limitations History of Present Illness: HPI Narrative: Mr. Rmairez is a nice 49-year-old male who comes in complaining of elevated temperature. They have been monitoring his temperature at home as he was just discharged from the hospital for sepsis. His temperature got up to 100.1 but he had no symptoms and felt fine. Patient states that he feels absolutely wonderful and denies any symptoms of fever, viral syndrome or infectious syndrome at this time. The patient does have a PICC line in place for which she is getting nafcillin. In reviewing the patient's discharge summary he had MSSA staph grown in 2 sets of blood cultures from an unknown source. Please see that discharge summary for details. Associated symptoms: Deny abdominal pain, flank pain, chills, chest pain, confusion, diarrhea, dysuria, extremity pain, headache(s), nausea or vomiting Review of Systems Const: Denies: fever(s), chills, body aches, fatigue, malaise or diaphoresis Eyes: Denies: change in vision, blurry vision, blind spots, photophobia, eye discharge or eye redness ENMT: Denies: throat pain, odynophagia, hoarseness, swelling of lips/tongue, oral sores, ear or mastoid pain, ear discharge, change in hearing or nasal discharge Card: Denies: chest pain, palpitations, irregular heart rhythm, edema, lightheadedness, syncope, pre-syncope, dyspnea on exertion or orthopnea Resp: Denies: dyspnea, productive cough, non-productive cough, wheezing, hemoptysis or chest congestion GI: Denies: abdominal pain, nausea, vomiting, hematemesis, coffee ground emesis, heartburn, diarrhea, constipation, GI cramping, hematochezia or melena : Denies: flank pain, dysuria, urinary frequency, urinary urgency or hematuria Musc: Denies: neck pain, back pain, extremity pain, extremity swelling, joint pain, joint swelling, joint redness, joint warmth or joint stiffness Skin/Breast: Denies: rash, pruritus, erythema, skin tenderness or jaundice Neuro: Denies: headache(s), numbness in extremities, weakness in extremities, sensory changes, lack of coordination, difficulty walking, dizziness, vertigo, confusion, Slurred speech present or seizure-like activity Robert/Lymph: Denies: easy bruising, easy bleeding, petechiae, purpura or enlarged lymph nodes All/Imm: Denies: urticaria, throat swelling, tongue swelling, facial swelling or acute wheezing PFSH ED PFSH: Medical History Essential hypertension Gram-positive bacteremia Heart murmur, systolic Palpitation Surgical History No pertinent past surgical history Family History Other CAD (coronary artery disease) Cancer Diabetes Social History Smoking and tobacco status: current every day smoker cigarettes Packs smoked per day: 0.5 Years cigarettes smoked: 30 Number of cigarettes per day: 11-20 Quit status (tobacco): considering quitting Alcohol intake: never Substance/Drug Use: never Household members: family Marital status: Current occupational status: employed 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 History of recent travel: No Current gender identity: Male Physical Exam Const: COMMON NORMALS: no acute distress, patient oriented x3, no limitations, healthy appearing and well nourished GENERAL APPEARANCE: cooperative, well kempt and well developed HENMT: COMMON NORMALS: normocephalic, atraumatic, external ears normal, EAC's normal and Normal external nose present HEAD & SCALP: normal to inspection, normocephalic and atraumatic FACE & SINUS: normal facial exam and face symmetric NOSE: Normal external nose present and Normal nares present EXTERNAL EAR: Yes external ears normal EXTERNAL AUDITORY CANAL: EAC's normal MOUTH: Normal oral and palatal mucosa present, lip normal and tongue normal Eye: COMMON NORMALS: Equal, round and reactive pupils present and conjunctivae normal GENERAL EYE: appearance normal, both eyes and all related structures ALIGNMENT: Yes alignment normal PERIORBITAL: periorbital findings normal EYELID: eyelids normal CONJUNCTIVA: Yes conjunctivae normal SCLERA: sclerae normal PUPIL: Yes Equal, round and reactive pupils present Neck/C-Spine: COMMON NORMALS: full ROM, no lymphadenopathy, supple, no meningeal signs and no JVD GENERAL: Yes normal visual inspection and Yes trachea midline Chest: COMMONS NORMALS: normal inspection of the chest and normal palpation of entire chest wall Resp: COMMON NORMALS: normal respiratory effort, No retractions and No use of accessory muscles EFFORT & INSPECTION: Yes able to speak in complete sentences and Yes symmetric chest movement AUSCULTATION: no crackles, no rales, no rhonchi and no wheezes Cardio: COMMON NORMALS: no JVD, regular rate, regular rhythm, S1 normal heart sound present and S2 normal heart sound present RATE: regular rate RHYTHM: regular rhythm HEART SOUNDS: S1 normal heart sound present, S2 normal heart sound present, no click, no gallops, no murmurs, no rubs and abnormal split S2 GI: COMMON NORMALS: Soft to palpation and No hepatosplenomegaly present PALPATION: Yes Soft to palpation, No Tenderness to palpation present (GI), No Guarding due to palpation present (GI), No Rigid due to palpation, Yes No hepatosplenomegaly present, No Hernia present, No Palpable mass present and No Pulsatile mass present : COMMON NORMALS: Yes no CVA tenderness BLADDER/KIDNEY EXAM: Yes no CVA tenderness Back/Pelvis: COMMON NORMALS: no CVA tenderness, thoracic and lumbar spine normal to inspection, no thoracic nor lumbar tenderness and thoraco-lumbar ROM normal Extremity: COMMON NORMALS: normal to inspection, full ROM, capillary refill normal, no joint enlargement, no clubbing, cyanosis or edema and no calf tenderness Neuro: COMMON NORMALS: patient oriented x3, CN's II-XII intact bilaterally, moves all extremities, no focal motor deficits and no sensory deficits noted MENINGEAL SIGNS: Yes no meningeal signs SPEECH: speech normal Psych: COMMON NORMALS: mental status grossly normal, Normal thought process present, cooperative, normal affect, speech normal and activity/motor behavior normal APPEARANCE: Yes well kempt SPEECH: Yes normal speech THOUGHT PROCESS: Normal thought process present Skin: COMMON NORMALS: no rashes or lesions noted, turgor normal, no jaundice, no petechiae and no mottling NARRATIVE SKIN EXAM: PICC line site in left arm appears without infection or ecchymosis. GENERAL SKIN EXAM: no rashes or lesions noted and turgor normal Course Vital Signs: Vital signs: Vital Signs Temperature 97.9 F 12/08/19 18:23 Pulse Rate 78 12/08/19 18:23 Respiratory Rate 20 H 12/08/19 22:39 Blood Pressure 167/80 12/08/19 22:39 Pulse Oximetry 96 12/08/19 22:50 MDM - Fever MDM Narrative: Medical decision making narrative: Mr. Ramirez is a nice 49-year-old male who comes in after a bout with acute kidney injury and methicillin sensitive staph aureus bacteremia of uncertain source. They have been measuring his temperature at home and it was 100.1 but the patient had no symptoms with this. After complete review I see no sign of acute infection. His PICC line looks good. There is questionable bacteremia leukocyte esterase and pyuria but the patient has no urinary symptoms. This is likely from a Holcomb catheter that was in. Nonetheless I will cover him with renally adjusted Cipro for 7 days. The patient agrees to follow-up with his doctor for recheck. He understands a culture is pending. Lab Data: Attestation: I reviewed the patient's lab results. Labs: Lab Results 12/08/19 12/08/19 12/08/19 Range/Units 19:42 19:42 19:42 WBC 10.2 H (4.0-10.0) 10^3/ uL RBC 3.05 L (4.1-5.3) 10^6/u L Hgb 9.3 L (11.7-16.6) g/dL Hct 29.6 L (42.0-52.0) % MCV 97.0 H (80-94) fL MCH 30.5 (28.0-34.0) pg MCHC 31.4 (30.0-36.0) g/dL RDW 14.3 (12.1-15.1) % Plt Count 535 H (130-400) 10^3/c mm MPV 10.1 (7.4-10.4) fL Neut % (Auto) 66.1 % Lymph % (Auto) 22.3 % [place] % (Auto) 9.3 % Eos % (Auto) 1.2 % Baso % (Auto) 0.7 % Neut # (Auto) 6.75 (1.8-7.7) 10^3/u L Lymph # (Auto) 2.3 (0.8-4.8) 10^3/u L [place] # (Auto) 1.0 H (0.2-0.9) 10^3/u L Eos # (Auto) 0.1 (0.0-0.8) 10^3/u L Baso # (Auto) 0.1 (0.0-0.1) 10^3/u L Nucleated RBC % (a uto) 0 % Nucleated RBCs # 0.0 /100WBC Sodium 134 L (136-145) mmol/L Potassium 4.3 (3.5-5.1) mmol/L Chloride 103 (98-107) mmol/L Carbon Dioxide 20 L (22-29) mmol/L Anion Gap 15.3 (5-19) BUN 29 H (6-20) mg/dL Creatinine 3.9 H (0.7-1.2) mg/dL GFR Calculation 16.7 L (90-130) mL/min Glucose 89 (65-115) mg/dL Calculated Osmolal ity 275 L (285-295) mOsm/k g Lactic Acid 0.7 (0.5-2.2) mmol/L Calcium 8.7 (8.5-10.5) mg/dL Total Bilirubin 0.2 (0.15-1.2) mg/dL AST 15 (0-40) U/L ALT 17 (0-41) U/L Alkaline Phosphata se 67 (40-130) IU/L Total Protein 6.4 L (6.6-8.7) g/dL Albumin 2.7 L (3.5-5.2) g/dL Globulin 3.7 (1.3-4.6) g/dL Urine Color (Yellow) Urine Appearance (CLEAR) Urine pH (5-7) Ur Specific Gravit y (1.005-1.030) Urine Protein (Negative) Urine Glucose (UA) (Normal) Urine Ketones (Negative) Urine Blood (Negative) Urine Nitrate (Negative) Urine Bilirubin (NEGATIVE) Urine Urobilinogen (Negative) mg/dL Ur Leukocyte Minerva ase (Negative) Urine RBC (0-2) /hpf Urine WBC (0-5) /hpf Ur Squamous Epith Cells (0-5) Amorphous Sediment Urine Bacteria (NONE) Fine Granular Cast s /lpf Influenza Type A A g (Negative) Influenza Type B A g (Negative) 12/08/19 12/08/19 Range/Units 19:45 21:48 WBC (4.0-10.0) 10^3/ uL RBC (4.1-5.3) 10^6/u L Hgb (11.7-16.6) g/dL Hct (42.0-52.0) % MCV (80-94) fL MCH (28.0-34.0) pg MCHC (30.0-36.0) g/dL RDW (12.1-15.1) % Plt Count (130-400) 10^3/c mm MPV (7.4-10.4) fL Neut % (Auto) % Lymph % (Auto) % [place] % (Auto) % Eos % (Auto) % Baso % (Auto) % Neut # (Auto) (1.8-7.7) 10^3/u L Lymph # (Auto) (0.8-4.8) 10^3/u L [place] # (Auto) (0.2-0.9) 10^3/u L Eos # (Auto) (0.0-0.8) 10^3/u L Baso # (Auto) (0.0-0.1) 10^3/u L Nucleated RBC % (a uto) % Nucleated RBCs # /100WBC Sodium (136-145) mmol/L Potassium (3.5-5.1) mmol/L Chloride (98-107) mmol/L Carbon Dioxide (22-29) mmol/L Anion Gap (5-19) BUN (6-20) mg/dL Creatinine (0.7-1.2) mg/dL GFR Calculation (90-130) mL/min Glucose (65-115) mg/dL Calculated Osmolal ity (285-295) mOsm/k g Lactic Acid (0.5-2.2) mmol/L Calcium (8.5-10.5) mg/dL Total Bilirubin (0.15-1.2) mg/dL AST (0-40) U/L ALT (0-41) U/L Alkaline Phosphata se (40-130) IU/L Total Protein (6.6-8.7) g/dL Albumin (3.5-5.2) g/dL Globulin (1.3-4.6) g/dL Urine Color Yellow (Yellow) Urine Appearance Clear (CLEAR) Urine pH 5 (5-7) Ur Specific Gravit y 1.015 (1.005-1.030) Urine Protein Trace (Negative) Urine Glucose (UA) Norm (Normal) Urine Ketones Negative (Negative) Urine Blood 3+ H (Negative) Urine Nitrate Negative (Negative) Urine Bilirubin Neg (NEGATIVE) Urine Urobilinogen Norm (Negative) mg/dL Ur Leukocyte Minerva ase Negative (Negative) Urine RBC 0-4 H (0-2) /hpf Urine WBC 5-10 H (0-5) /hpf Ur Squamous Epith Cells 0-4 H (0-5) Amorphous Sediment Not Reportable Urine Bacteria 1+ H (NONE) Fine Granular Cast s 0-4 H /lpf Influenza Type A A g Negative (Negative) Influenza Type B A g Negative (Negative) Imaging Data^: CXR: My impression: No acute cardiopulmonary findings. Discharge Plan Discharge Patient Disposition: Home Clinical Impression: Acute UTI Condition: Stable Prescriptions: New Cipro 500 mg tablet 25 mg PO BID 7 Days Qty: 20 RF: 0 No Action vitamin B complex [B Complex-Vitamin B12] Tablet 1 tab PO DAILY RF: 0 omega-3 fatty acids [Fish Oil Concentrate] 1,000 mg capsule 1,000 mg PO DAILY RF: 0 aspirin 81 mg tablet,delayed release (DR/EC) 81 mg PO DAILY RF: 0 azithromycin 250 mg tablet See Rx Instructions PO .COMPLEX Qty: 6 RF: 0 albuterol sulfate 90 mcg/actuation HFA aerosol inhaler 2 puff INHALATION Q6H PRN (Reason: shortness of breath or wheezing) Qty: 8.5 RF: 0 Zofran 4 mg Tablet 4 mg PO Q6H PRN (Reason: Nausea) RF: 0 acetaminophen 325 mg Tablet 650 mg PO Q6H PRN (Reason: Mild Pain or increased temp) Qty: 0 RF: 0 Calphron 667 mg Tablet 667 mg PO TIDWM 30 Days Qty: 30 RF: 0 nafcillin 2 gram recon soln See Rx Instructions .ROUTE .COMPLEX 42 Days Qty: 1 RF: 0 Discharge Orders: Discharge Order (Routine); Ordered 12/08/19 Ordered By: Kanchan Baez Referrals: Eugene Kee [Referring] - 1-3 days Discharge Diet: Usual diet Discharge Activity: Increase activity as tolerated Patient Instructions: Urinary Tract Infection in Men (ED) Activity Restrictions/Additional Instructions: Please return to the ER immediately for any of the signs or symptoms listed on your discharge instruction sheets, worsening/changing of your symptoms, you are not getting better as quickly as expected, or for ANY other cause or concerns. Take Cipro as directed. If you develop any new symptoms or you develop a temperature of 100.4 or higher please return to the ER immediately for recheck. Discharge Date/Time: 12/08/19 22:51 Coding Level of Care Code ED [facility] for [facility] Fwd Exam Comprehensive
[2019-12-08 21:41] LABS: Bacteria Urine 1+; Bilirubin Urine Neg (NEGATIVE); Blood Urine 3+ (Negative); Fine Granular Casts Urine 0-4 /lpf; Glucose Urine UA Norm (Normal); Ketones Urine Negative (Negative); Leukocyte Esterase Urine Negative (Negative); Nitrate Urine Negative (Negative); Protein Urine Trace (Negative); RBC Urine 0-4 /hpf (0-2); Specific Gravity, Urine 1.015 (1.005-1.030); Squamous Epithelial Cell Urine 0-4 (0-5); Urine Appearance Clear (CLEAR); Urine Color Yellow (Yellow); Urobilinogen Urine Norm (Negative); pH Urine 5 (5-7)
[2019-12-08 22:21] LABS: Influenza A by IFA Negative (Negative); Influenza B by IFA Negative (Negative)
[2019-12-08 22:39] VITALS: BP 167/80; RESP 20; O2SAT 99
[2019-12-08 22:50] VITALS: O2SAT 96
[2019-12-11 13:18] LABS: Quest SARS-CoV-2 RNA NOT DETECTED (NOT DETECTED)
== END 2019-12-08 22:51 | disposition home or self-care (01) ==
PROVIDERS: Emergency Provider Emergency Medicine
DX: N39.0 Urinary tract infection, site not specified (principal); Z79.82 Long term (current) use of aspirin; I10 Essential (primary) hypertension; F17.210 Nicotine dependence, cigarettes, uncomplicated
CPT/HCPCS: 12345; 36415; 71045; 80053; 81001; 83605; 85025; 87040; 87086; 87635; 87804; 99283

== ENCOUNTER → 2019-12-15 10:56 | Outpatient (BNVA) | payer OTHER, SELFPAY | PROVIDERS: Visit Provider Emergency Medicine | DX: A41.01 Sepsis due to Methicillin susceptible Staphylococcus aureus (principal); N17.9 Acute kidney failure, unspecified; N39.0 Urinary tract infection, site not specified; I35.1 Nonrheumatic aortic (valve) insufficiency; R60.9 Edema, unspecified | CPT/HCPCS: 80053; 81000; 83880; 85025; 85651 ==

== ENCOUNTER 2019-12-28 07:50 | Emergency (ER) | payer OTHER, SELFPAY ==
[2019-12-28] VITALS (8 sets, daily range): BP systolic 102–197; BP diastolic 75–112; PULSE 109–119; RESP 20–90; TEMP 36.8; O2SAT 92–99; BMI 33.3
--- NOTE | 2019-12-28 08:13 | XRR_ITS ---
PROCEDURE INFORMATION: Exam: XR Chest, 1 View Exam date and time: 12/28/2019 9:30 AM Age: 49 years old Clinical indication: Cough and dyspnea; Patient HX: Full body infection antibiotic pump; Additional info: Dyspnea/cough TECHNIQUE: Imaging protocol: XR of the chest Views: Frontal portable view of the chest. COMPARISON: CR XR chest 1V portable [id number] 12/08/2019 9:02 PM FINDINGS: Tubes, catheters and devices: The right upper extremity PICC line tip is in the mid SVC. EKG leads are present overlying the chest. Lungs: Interval dense consolidation in the left parahilar region, bilateral mid-lower lung zone pulmonary infiltrates. The pulmonary vasculature is obscured by increased lung attenuation. Increased bibasilar subsegmental atelectasis. Pleural space: No pleural effusion. No pneumothorax. Heart/Mediastinum: Stable mild cardiomegaly. Mediastinum: Stable. Bones/joints: Stable. XR/XR chest 1V portable [id number] IMPRESSION: 1. Interval left parahilar consolidation and bilateral pulmonary infiltrates. Pneumonitis and/or atypical pulmonary edema. Clinical correlation is recommended. 2. Increased bibasilar subsegmental atelectasis.
--- NOTE | 2019-12-28 08:14 | CT_ITS ---
WS: [id number] CTA OF THE CHEST WITH PULMONARY EMBOLISM PROTOCOL TECHNIQUE: High-resolution contrast enhanced CTA of the chest with coronal and sagittal reformatted i josé miguels with pulmonary embolism protocol. MIP images are also reviewed. CLINICAL INFORMATION: dyspnea COMPARISON: CT November 27, 2019 DLP: 1046.[address] scans at [facility] use at least one of these dose optimization techniques: automat ed exposure control; mA and/or kV adjustment per patient size (includes targeted exams where dose is matched to clinical indication); or iterative reconstruction. FINDINGS: Images degraded by breathing artifact. Proximal main pulmonary arteries are normal. Proximal segmenta l pulmonary arteries appear patent. Subsegmental arteries not well evaluated due to artifact. No defi nite evidence of pulmonary embolus. Normal caliber thoracic aorta. Cardiomegaly. Small pericardial effusion. Small right greater than lef t pleural effusions. Extensive bilateral perihilar airspace infiltrates. This is new since November 26 020. Bilateral perihilar bronchovascular thickening. Partially confluent consolidation in the left gr eater than right hilum and left upper lobe. Mild thoracic kyphosis. Visualized upper abdominal conten ts unremarkable. CT/CT angio chest PE protcl [id number] IMPRESSION: 1. No definite evidence of pulmonary embolus. Limited examination due to breat kim artifact. Distal subsegmental arteries not well evaluated. 2. Small right greater than left pleural effusions. 3. Diffuse bilateral perihilar airspace infiltrates. Recommend correlation for atypical and viral pneumonia. More confluent infiltrates in the left hilum and left upper lobe. 4. Small pericardial effusion. Cardiomegaly. 5. Hepatic vein contrast reflux. Recommend correlation for right heart failure . Attempted notification Solitario Nichols DO at 12/28/2019 10:16 AM.
--- NOTE | 2019-12-28 08:18 | W.ED.SOB ---
HPI - SOB/Dyspnea General: Chief Complaint: Shortness of Breath/Dyspnea Stated Complaint: SOB Time Seen by Provider: 12/28/19 07:59 History of Present Illness: HPI Narrative: 49-year-old male presents to the emergency room with complaint of shortness of breath he is also extremely diaphoretic when he come to the room 3 days ago. He was recently hospitalized for staph septicemia he also has a history of a bicuspid aortic valve he still is a PICC line in place and is getting nafcillin. He denies any chest pain he states his shortness of breath began this morning he said a cough but is been nonproductive. He did use the labetalol prior to arrival with minimal results. MD elicited complaint: shortness of breath and cough Pertinent past history: other (Bicuspid aortic valve) Severity: severe Exacerbating factors: lying flat, movement and coughing Relieving factors: nothing Known history of: other (Bicuspid aortic valve) Associated symptoms: Reports chest congestion, cough, diaphoresis, lightheadedness, myalgias, nausea and palpitations; Deny hemoptysis or vomiting Treatment prior to arrival: oxygen and bronchodilator Review of Systems Const: Reports: diaphoresis ENMT: Denies: throat pain, ear or mastoid pain, nasal discharge or nasal congestion Card: Reports: palpitations and lightheadedness Resp: Reports: chest congestion; Denies: hemoptysis GI: Reports: nausea; Denies: vomiting : Denies: flank pain, dysuria, urinary frequency or urinary urgency Skin/Breast: Denies: rash or pruritus [facility] ED PFSH: Medical History Bicuspid aortic valve Essential hypertension Gram-positive bacteremia Heart murmur, systolic Palpitation Peripheral edema Surgical History No pertinent past surgical history Family History Other CAD (coronary artery disease) Cancer Diabetes Social History Smoking and tobacco status: current every day smoker cigarettes Packs smoked per day: 0.5 Years cigarettes smoked: 30 Quit status (tobacco): considering quitting Alcohol intake: never Household members: family Marital status: Current occupational status: employed 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 History of recent travel: No Current gender identity: Male Physical Exam Const: ORIENTATION/CONSCIOUSNESS: Yes awake, Yes oriented to person, Yes oriented to place and Yes oriented to time HENMT: COMMON NORMALS: normocephalic, atraumatic and hearing grossly normal bilaterally HEAD & SCALP: normocephalic and atraumatic Eye: COMMON NORMALS: Equal, round and reactive pupils present, EOMs intact bilaterally, conjunctivae normal and no scleral icterus CONJUNCTIVA: Yes conjunctivae normal PUPIL: Yes Equal, round and reactive pupils present Neck/C-Spine: COMMON NORMALS: full ROM, no lymphadenopathy, supple and no JVD Lymph: LYMPHATIC: no lymphadenopathy noted and no lymphedema noted Resp: COMMON NORMALS: normal respiratory effort, No retractions, No use of accessory muscles and clear to auscultation bilaterally AUSCULTATION: clear to auscultation bilaterally Cardio: COMMON NORMALS: no JVD and regular rhythm RATE: tachycardic RHYTHM: regular rhythm OTHER: Unable to auscultate heart sounds due to obstruction by breath sounds. GI: COMMON NORMALS: Soft to palpation and No hepatosplenomegaly present AUSCULTATION: Yes normoactive bowel sounds PALPATION: Yes Soft to palpation, No Tenderness to palpation present (GI), No Guarding due to palpation present (GI) and Yes No hepatosplenomegaly present Extremity: COMMON NORMALS: normal to inspection, capillary refill normal, no clubbing, cyanosis or edema, no calf tenderness and no pedal edema Neuro: SENSORIUM/ORIENTATION: Yes oriented to person, Yes oriented to place and Yes oriented to time Skin: COMMON NORMALS: no rashes or lesions noted GENERAL SKIN EXAM: no rashes or lesions noted Course Vital Signs: Vital signs: Vital Signs Temperature 98.2 F 12/28/19 07:51 Pulse Rate 109 H 12/28/19 17:07 Respiratory Rate 20 H 12/28/19 17:07 Blood Pressure 102/84 12/28/19 17:07 Pulse Oximetry 99 12/28/19 17:07 MDM - SOB/Dyspnea MDM Narrative: Medical decision making narrative: We made several calls to get transferred. [facility] not have any ICU beds [facility] was full they would take him but it would be several hours if not a day or more. Cussed with Dr. Xenia Elmore of our hospitalist, as well as Dr. Martini her infectious disease specialist. We all agree that this patient should be transferred to a tertiary care setting. Ultimately we were able to find a bed at [facility]. Patient was transferred by air ambulance as his condition was severe critical. Patient will require level of services that we do not have available here at our facility. Patient was cultured here and started on Vanco and Zosyn the second dose of Zosyn was given just prior to transfer. Lab Data: Labs: Lab Results 12/28/19 12/28/19 12/28/19 Range/Units 08:09 08:09 08:09 WBC 17.9 H (4.0-10.0) 10^3/ uL RBC 2.98 L (4.1-5.3) 10^6/u L Hgb 9.1 L (11.7-16.6) g/dL Hct 28.5 L (42.0-52.0) % MCV 95.6 H (80-94) fL MCH 30.5 (28.0-34.0) pg MCHC 31.9 (30.0-36.0) g/dL RDW 14.8 (12.1-15.1) % Plt Count 517 H (130-400) 10^3/c mm MPV 11.7 H (7.4-10.4) fL Neut % (Auto) 82.2 % Lymph % (Auto) 10.9 % Shannon % (Auto) 6.2 % Eos % (Auto) 0.1 % Baso % (Auto) 0.2 % Neut # (Auto) 14.66 H (1.8-7.7) 10^3/u L Lymph # (Auto) 2.0 (0.8-4.8) 10^3/u L Shannon # (Auto) 1.1 H (0.2-0.9) 10^3/u L Eos # (Auto) 0.0 (0.0-0.8) 10^3/u L Baso # (Auto) 0.0 (0.0-0.1) 10^3/u L Nucleated RBC % (a uto) 0 % Nucleated RBCs # 0.0 /100WBC Fibrinogen (174-498) mg/dL D-Dimer (0-0.59) ug/mIFE U Specimen Type Sample Site ABG pH (7.35-7.45) ABG pCO2 (35-45) mmHg ABG pO2 (80.0-100.0) mmH g ABG HCO3 (22-26) mmol/L ABG O2 Saturation ABG Base Excess (-2.0-2.0) mmol/ L James Test A-a O2 Gradient (5-10) mmHg Hematocrit (42-52) % Hgb O2 Saturation (95-100) % Carboxyhemoglobin (0.4-20.1) %THgb Methemoglobin (0.4-1.5) % Total Hemoglobin (14-18) g/dL Ionized Calcium (1.1-1.4) mmol/L O2 Delivery Device O2 Liters/Min % FiO2 % Sound Engineer ID Sodium 134 L (136-145) mmol/L Potassium 3.1 L (3.5-5.1) mmol/L Chloride 97 L (98-107) mmol/L Carbon Dioxide 21 L (22-29) mmol/L Anion Gap 19.1 H (5-19) BUN 9 (6-20) mg/dL Creatinine 1.2 (0.7-1.2) mg/dL GFR Calculation 64.9 L (90-130) mL/min Glucose 185 H (65-115) mg/dL Calculated Osmolal ity 279 L (285-295) mOsm/k g Lactic Acid 4.0 H (0.5-2.2) mmol/L Lactic Acid (Sepsi s) (0.5-2.2) mmol/L Calcium 8.4 L (8.5-10.5) mg/dL Ferritin 370 (30-400) ng/mL Total Bilirubin 0.3 (0.15-1.2) mg/dL AST 14 (0-40) U/L ALT 10 (0-41) U/L Alkaline Phosphata se 57 (40-130) IU/L Troponin T Baselin e (0-15) ng/L Troponin T 120 Min [place] (0-15) ng/L Delta Troponin T (0-10) ABS# Troponin T Hi Sens 6Hr (0-15) ng/L Troponin T Hi Sens 6Hr Delta (0-12) ng/L C-Reactive Protein 128.2 H (0.0-4.9) mg/L Total Protein 7.7 (6.6-8.7) g/dL Albumin 3.4 L (3.5-5.2) g/dL Globulin 4.3 (1.3-4.6) g/dL Serum Ketones Negative (Negative) Nasal/Oral COVID-1 9 PCR SARS-CoV-2 Ag (Rap id) (Negative) 12/28/19 12/28/19 12/28/19 Range/Units 08:09 08:09 08:12 WBC (4.0-10.0) 10^3/ uL RBC (4.1-5.3) 10^6/u L Hgb (11.7-16.6) g/dL Hct (42.0-52.0) % MCV (80-94) fL MCH (28.0-34.0) pg MCHC (30.0-36.0) g/dL RDW (12.1-15.1) % Plt Count (130-400) 10^3/c mm MPV (7.4-10.4) fL Neut % (Auto) % Lymph % (Auto) % Shannon % (Auto) % Eos % (Auto) % Baso % (Auto) % Neut # (Auto) (1.8-7.7) 10^3/u L Lymph # (Auto) (0.8-4.8) 10^3/u L Shannon # (Auto) (0.2-0.9) 10^3/u L Eos # (Auto) (0.0-0.8) 10^3/u L Baso # (Auto) (0.0-0.1) 10^3/u L Nucleated RBC % (a uto) % Nucleated RBCs # /100WBC Fibrinogen 707 H (174-498) mg/dL D-Dimer 2.85 H (0-0.59) ug/mIFE U Specimen Type Arterial Sample Site Radial, right ABG pH 7.43 (7.35-7.45) ABG pCO2 30.1 L (35-45) mmHg ABG pO2 58.5 L (80.0-100.0) mmH g ABG HCO3 20.1 L (22-26) mmol/L ABG O2 Saturation 92.1 ABG Base Excess -3.4 L (-2.0-2.0) mmol/ L James Test Pos A-a O2 Gradient 20.9 H (5-10) mmHg Hematocrit 29.3 L (42-52) % Hgb O2 Saturation 88.6 L (95-100) % Carboxyhemoglobin 3.4 (0.4-20.1) %THgb Methemoglobin 0.4 (0.4-1.5) % Total Hemoglobin 9.6 L (14-18) g/dL Ionized Calcium 1.1 (1.1-1.4) mmol/L O2 Delivery Device Nc O2 Liters/Min 4.0 % FiO2 36.0 % Sound Engineer ID glc Sodium 137.0 (136-145) mmol/L Potassium 2.8 L (3.5-5.1) mmol/L Chloride (98-107) mmol/L Carbon Dioxide (22-29) mmol/L Anion Gap (5-19) BUN (6-20) mg/dL Creatinine (0.7-1.2) mg/dL GFR Calculation (90-130) mL/min Glucose 187.0 H (65-115) mg/dL Calculated Osmolal ity (285-295) mOsm/k g Lactic Acid (0.5-2.2) mmol/L Lactic Acid (Sepsi s) (0.5-2.2) mmol/L Calcium (8.5-10.5) mg/dL Ferritin (30-400) ng/mL Total Bilirubin (0.15-1.2) mg/dL AST (0-40) U/L ALT (0-41) U/L Alkaline Phosphata se (40-130) IU/L Troponin T Baselin e 108 H* (0-15) ng/L Troponin T 120 Min [place] (0-15) ng/L Delta Troponin T (0-10) ABS# Troponin T Hi Sens 6Hr (0-15) ng/L Troponin T Hi Sens 6Hr Delta (0-12) ng/L C-Reactive Protein (0.0-4.9) mg/L Total Protein (6.6-8.7) g/dL Albumin (3.5-5.2) g/dL Globulin (1.3-4.6) g/dL Serum Ketones (Negative) Nasal/Oral COVID-1 9 PCR SARS-CoV-2 Ag (Rap id) (Negative) 12/28/19 12/28/19 12/28/19 Range/Units 08:32 10:00 10:15 WBC (4.0-10.0) 10^3/ uL RBC (4.1-5.3) 10^6/u L Hgb (11.7-16.6) g/dL Hct (42.0-52.0) % MCV (80-94) fL MCH (28.0-34.0) pg MCHC (30.0-36.0) g/dL RDW (12.1-15.1) % Plt Count (130-400) 10^3/c mm MPV (7.4-10.4) fL Neut % (Auto) % Lymph % (Auto) % Shannon % (Auto) % Eos % (Auto) % Baso % (Auto) % Neut # (Auto) (1.8-7.7) 10^3/u L Lymph # (Auto) (0.8-4.8) 10^3/u L Shannon # (Auto) (0.2-0.9) 10^3/u L Eos # (Auto) (0.0-0.8) 10^3/u L Baso # (Auto) (0.0-0.1) 10^3/u L Nucleated RBC % (a uto) % Nucleated RBCs # /100WBC Fibrinogen (174-498) mg/dL D-Dimer (0-0.59) ug/mIFE U Specimen Type Sample Site ABG pH (7.35-7.45) ABG pCO2 (35-45) mmHg ABG pO2 (80.0-100.0) mmH g ABG HCO3 (22-26) mmol/L ABG O2 Saturation ABG Base Excess (-2.0-2.0) mmol/ L James Test A-a O2 Gradient (5-10) mmHg Hematocrit (42-52) % Hgb O2 Saturation (95-100) % Carboxyhemoglobin (0.4-20.1) %THgb Methemoglobin (0.4-1.5) % Total Hemoglobin (14-18) g/dL Ionized Calcium (1.1-1.4) mmol/L O2 Delivery Device O2 Liters/Min % FiO2 % Sound Engineer ID Sodium (136-145) mmol/L Potassium (3.5-5.1) mmol/L Chloride (98-107) mmol/L Carbon Dioxide (22-29) mmol/L Anion Gap (5-19) BUN (6-20) mg/dL Creatinine (0.7-1.2) mg/dL GFR Calculation (90-130) mL/min Glucose (65-115) mg/dL Calculated Osmolal ity (285-295) mOsm/k g Lactic Acid (0.5-2.2) mmol/L Lactic Acid (Sepsi s) (0.5-2.2) mmol/L Calcium (8.5-10.5) mg/dL Ferritin (30-400) ng/mL Total Bilirubin (0.15-1.2) mg/dL AST (0-40) U/L ALT (0-41) U/L Alkaline Phosphata se (40-130) IU/L Troponin T Baselin e (0-15) ng/L Troponin T 120 Min [place] 120.1 H (0-15) ng/L Delta Troponin T 12.1 H* (0-10) ABS# Troponin T Hi Sens 6Hr (0-15) ng/L Troponin T Hi Sens 6Hr Delta (0-12) ng/L C-Reactive Protein (0.0-4.9) mg/L Total Protein (6.6-8.7) g/dL Albumin (3.5-5.2) g/dL Globulin (1.3-4.6) g/dL Serum Ketones (Negative) Nasal/Oral COVID-1 9 PCR Negative SARS-CoV-2 Ag (Rap id) Negative (Negative) 12/28/19 12/28/19 12/28/19 Range/Units 10:55 11:35 14:15 WBC (4.0-10.0) 10^3/ uL RBC (4.1-5.3) 10^6/u L Hgb (11.7-16.6) g/dL Hct (42.0-52.0) % MCV (80-94) fL MCH (28.0-34.0) pg MCHC (30.0-36.0) g/dL RDW (12.1-15.1) % Plt Count (130-400) 10^3/c mm MPV (7.4-10.4) fL Neut % (Auto) % Lymph % (Auto) % Shannon % (Auto) % Eos % (Auto) % Baso % (Auto) % Neut # (Auto) (1.8-7.7) 10^3/u L Lymph # (Auto) (0.8-4.8) 10^3/u L Shannon # (Auto) (0.2-0.9) 10^3/u L Eos # (Auto) (0.0-0.8) 10^3/u L Baso # (Auto) (0.0-0.1) 10^3/u L Nucleated RBC % (a uto) % Nucleated RBCs # /100WBC Fibrinogen (174-498) mg/dL D-Dimer (0-0.59) ug/mIFE U Specimen Type Arterial Sample Site Radial, left ABG pH 7.43 (7.35-7.45) ABG pCO2 31.5 L (35-45) mmHg ABG pO2 74.1 L (80.0-100.0) mmH g ABG HCO3 21.0 L (22-26) mmol/L ABG O2 Saturation 96.4 ABG Base Excess -2.8 L (-2.0-2.0) mmol/ L James Test Pos A-a O2 Gradient 22.3 H (5-10) mmHg Hematocrit 28.9 L (42-52) % Hgb O2 Saturation 93.4 L (95-100) % Carboxyhemoglobin 2.2 (0.4-20.1) %THgb Methemoglobin 0.9 (0.4-1.5) % Total Hemoglobin 9.4 L (14-18) g/dL Ionized Calcium 1.1 (1.1-1.4) mmol/L O2 Delivery Device Nc O2 Liters/Min 5.0 % FiO2 40.0 % Sound Engineer ID glc Sodium 138.0 (136-145) mmol/L Potassium 3.1 L (3.5-5.1) mmol/L Chloride (98-107) mmol/L Carbon Dioxide (22-29) mmol/L Anion Gap (5-19) BUN (6-20) mg/dL Creatinine (0.7-1.2) mg/dL GFR Calculation (90-130) mL/min Glucose 128.0 H (65-115) mg/dL Calculated Osmolal ity (285-295) mOsm/k g Lactic Acid (0.5-2.2) mmol/L Lactic Acid (Sepsi s) 2.8 H (0.5-2.2) mmol/L Calcium (8.5-10.5) mg/dL Ferritin (30-400) ng/mL Total Bilirubin (0.15-1.2) mg/dL AST (0-40) U/L ALT (0-41) U/L Alkaline Phosphata se (40-130) IU/L Troponin T Baselin e (0-15) ng/L Troponin T 120 Min [place] (0-15) ng/L Delta Troponin T (0-10) ABS# Troponin T Hi Sens 6Hr 142.8 H (0-15) ng/L Troponin T Hi Sens 6Hr Delta 34.8 H* (0-12) ng/L C-Reactive Protein (0.0-4.9) mg/L Total Protein (6.6-8.7) g/dL Albumin (3.5-5.2) g/dL Globulin (1.3-4.6) g/dL Serum Ketones (Negative) Nasal/Oral COVID-1 9 PCR SARS-CoV-2 Ag (Rap id) (Negative) Discharge Plan Discharge Patient Disposition: Xfer Other Clinical Impression: Suspected COVID-19 virus infection, Septicemia due to Staphylococcus aureus, Bicuspid aortic valve Interventions: ED Discharge Assessment Last Done: 12/28/19 17:07 ED Charges Last Done: 12/28/19 17:07 Discharge Date/Time: 12/28/19 17:08 Coding Level of Care Code ED Information Systems Architect for Chg Fwd Exam Comprehensive
[2019-12-28 08:23] LABS: ABG PCO2 30.1 mmHg (35-45); ABG PH Result 7.43 (7.35-7.45); Alveolar-Arterial Oxygen Gradi 20.9 mmHg (5-10); Arterial Blood Gas Hematocrit 29.3 % (42-52); Base Excess ABG -3.4 mmol/L (-2.0-2.0); Blood Gas Allen Test Pos; Blood Gas Operator Identificat glc; Blood Gas Sample Site Radial, right; Blood Gas Sample Type Arterial; Carboxyhemoglobin 3.4 %THgb (0.4-20.1); HCO3 ABG 20.1 mmol/L (22-26); HGB O2 Sat 88.6 % (95-100); Ionized Calcium Level - ABG 1.1 mmol/L (1.1-1.4); Methemoglobin 0.4 % (0.4-1.5); Oxygen Device NC; Oxygen Saturation ABG 92.1; PO2 ABG 58.5 mmHg (80.0-100.0); Potassium Level - ABG 2.8 mmol/L (3.5-5.0); Total Hemoglobin 9.6 g/dL (14-18)
[2019-12-28 08:32] LABS: Basophils % 0.2 %; Eosinophils % 0.1 %; Hematocrit 28.5 % (42.0-52.0); Hemoglobin 9.1 g/dL (11.7-16.6); Lymphocytes % 10.9 %; Mean Corpuscular HGB Conc 31.9 g/dL (30.0-36.0); Mean Corpuscular Hemoglobin 30.5 pg (28.0-34.0); Mean Corpuscular Volume 95.6 fL (80-94); Mean Platelet Volume 11.7 fL (7.4-10.4); Monocytes # 1.1 10^3/uL (0.2-0.9); Monocytes % 6.2 %; Neutrophils # 14.66 10^3/uL (1.8-7.7); Neutrophils % 82.2 %; Nucleated Red Blood Cells % 0 %; Platelet Count 517 10^3/cmm (130-400); Red Blood Count 2.98 10^6/uL (4.1-5.3); Red Cell Distribution Width 14.8 % (12.1-15.1); White Blood Count 17.9 10^3/uL (4.0-10.0)
[2019-12-28 08:33] LABS: Ketone (Acetest) Serum Negative (Negative)
[2019-12-28] MEDS: sodium chloride 0.9% 1,000 ML 999 ML IV (08:34)
[2019-12-28 08:37] LABS: Fibrinogen 707 mg/dL (174-498)
[2019-12-28 08:40] LABS: D Dimer 2.85 ug/mIFEU (0-0.59)
[2019-12-28 08:45] LABS: Alanine Aminotransferase 10 U/L (0-41); Albumin Level 3.4 g/dL (3.5-5.2); Alkaline Phosphatase 57 IU/L (40-130); Anion Gap 19.1 (5-19); Aspartate Amino Transferase 14 U/L (0-40); Blood Urea Nitrogen 9 mg/dL (6-20); C Reactive Protein 128.2 mg/L (0.0-4.9); Calcium 8.4 mg/dL (8.5-10.5); Carbon Dioxide 21 mmol/L (22-29); Chloride 97 mmol/L (98-107); Ferritin 370 ng/mL (30-400); Globulin 4.3 g/dL (1.3-4.6); Glomerular Filtration Rate 64.9 mL/min (90-130); Glucose 185 mg/dL (65-115); Osmolality Calculated 279 mOsm/kg (285-295); Potassium 3.1 mmol/L (3.5-5.1); Sodium 134 mmol/L (136-145); Total Bilirubin 0.3 mg/dL (0.15-1.2); Total Protein 7.7 g/dL (6.6-8.7)
--- NOTE | 2019-12-28 08:45 | ECG_ITS ---
[facility] Test Date: 2019-12-28 Pat Name: Chip Ramirez Department: Room: Gender: Male Tanbark Peeler: : 1970 Requested By: Solitario Patel Order Number: [id number] Dhruv MD: Nato Sanchez M.D. Measurements Intervals [place] Rate: 115 P: AR: -1 QRS: 79 QRSD: 94 T: -37 QT: 313 QTc: 434 Interpretive Statements SUPRAVENTRICULAR TACHYCARDIA ANTEROSEPTAL MYOCARDIAL INFARCTION , OF INDETERMINATE AGE [40+ ms Q WAVE IN V1-V4] MODERATE T-WAVE ABNORMALITY, CONSIDER LATERAL ISCHEMIA [-0.1+ mV T WAVE IN I/aVL/V5/V6] MODERATE T-WAVE ABNORMALITY, CONSIDER INFERIOR ISCHEMIA [-0.1+ mV T WAVE IN II/aVF] No previous ECG available for comparison Electronically Signed On 12-28-2019 17:27:26 CDT by Nato Sanchez M.D. [id number] f
[2019-12-28 08:56] LABS: SARS Covid-2 Antigen Negative (Negative)
--- NOTE | 2019-12-28 09:26 | PC.NURSE ---
X-ray at bedside for portable chest
[2019-12-28] MEDS: iodixanol 320 mg/mL 100mL Btl IV (10:00)
[2019-12-28 10:13] LABS: Reflex Lactate Order REFLEX LACTIC ORDERD
--- NOTE | 2019-12-28 10:18 | USCV_ITS ---
Chip Ramirez Age: 49 Gender: M : 1970 Exam Date: 12/28/2019 10:43 Ordering Phys: Solitario Nichols DO Technologist: Maritza Li [place] [facility] [place]: [place] + PATIENT BP: / HR: 109 Rhythm: Sinus Technical Quality: Adequate MEASUREMENTS (Male / Female) Normal Values 2D ECHO LV Diastolic Diameter PLAX 7.2 cm 4.2 - 5.9 / 3.9 - 5.3 cm LV Systolic Diameter PLAX 5.7 cm LV Chamber Size 6.1 cm IVS Diastolic Thickness 1.0 cm 0.6 - 1.0 / 0.6 - 0.9 cm IVS Systolic Thickness 1.7 cm LVPW Diastolic Thickness 1.3 cm 0.6 - 1.0 / 0.6 - 0.9 cm LVPW Systolic Thickness 1.7 cm RV Chamber Size 4.1 cm LVOT Diameter 2.1 cm LV Ejection Fraction 2D Teich 42.2 % LV Ejection Fraction MOD 2C 55.4 % LV Ejection Fraction 2C AL 55.6 % LA Diameter 1.4 cm LA Width 4.0 cm LA Height 4.6 cm RA Width 4.8 cm RA Height 4.1 cm Aorta at Sinotubular Diameter 4.3 cm M-MODE LV Diastolic Diameter MM 7.6 cm 4.2 - 5.9 / 3.9 - 5.3 cm LV Systolic Diameter MM 5.5 cm LV Ejection Fraction MM Teich 52.3 % IVS Diastolic Thickness MM 1.2 cm 0.6 - 1.0 / 0.6 - 0.9 cm IVS Systolic Thickness MM 1.4 cm LVPW Diastolic Thickness MM 1.5 cm 0.6 - 1.0 / 0.6 - 0.9 cm LVPW Systolic Thickness MM 1.6 cm RV Diastolic Diameter MM 2.0 cm Aortic Annulus Diameter 5.0 cm LA Ao Ratio MM 0.3 MV E Point Septal Separation 2.3 cm DOPPLER TR Peak Velocity 253.4 cm/s TR Peak Gradient 25.7 mmHg TR Mean Velocity 190.3 cm/s TR Mean Gradient 16.7 mmHg TR Velocity Time Integral 56.3 cm TV Peak E Velocity 66.0 cm/s Right Atrial Pressure 15.0 mmHg Pulmonary Artery Systolic Pressu 40.7 mmHg PV Peak Velocity 74.0 cm/s RV Acceleration Time 0.1 s RV Ejection Time 0.3 s RV AcT/ET 0.5 FINDINGS Left Ventricle Mildly dilated LV, normal wall thickness. LV systolic function is severely reduced with EF of 25 to 30%. Severe global hypokinesis is noted. Diastolic function is indeterminate. Right Ventricle The right ventricle is normal in size and function. Right Atrium The right atrium is normal in size. Left Atrium The left atrium is normal in size. Mitral Valve Structurally normal mitral valve without significant stenosis or prolapse. There is mild MR Aortic Valve Thickened and calcified bicuspid aortic valve. There is at least moderate aortic regurgitation Tricuspid Valve Structurally normal tricuspid valve without significant stenosis or regurgitation. Insufficient TR jet to measure RVSP. RA pressure is elevated. Pulmonic Valve Structurally normal pulmonic valve without significant stenosis. There is no pulmonic regurgitation. Pericardium Small pericardial effusion is noted Aorta Aortic root is dilated and measured at 4.3 cm at sinotubular junction. CONCLUSIONS LV systolic function is severely reduced with EF of 25 to 30%. Severely severe global hypokinesis is noted. Compared to last echocardiogram this is a new change Bicuspid aortic valve. At least moderate aortic regurgitation is seen Small pericardial effusion is noted Dilated ascending aorta. Yossi Nugent MD (Electronically Signed) Final Date: 28 December 2019 11:54 S
[2019-12-28] MEDS: piperacillin-tazobactam 3.375 GM in sodium chloride 0.9% (plus) 50 ML IV ×2 (10:23→17:07)
[2019-12-28 10:30] LABS: Troponin(5th) Baseline 108 ng/L (0-15)
--- NOTE | 2019-12-28 10:45 | ECG_ITS ---
[facility] Test Date: 2019-12-28 Pat Name: Chip Ramirez Department: Room: Gender: Male Environmental Aid: : 1970 Requested By: Solitario Patel Order Number: [id number] Dhruv MD: Nato Sanchez M.D. Measurements Intervals [place] Rate: 109 P: 39 KS: 180 QRS: 98 QRSD: 100 T: 106 QT: 424 QTc: 572 Interpretive Statements SINUS TACHYCARDIA WITH OCCASIONAL VENTRICULAR PREMATURE COMPLEXES BORDERLINE RIGHT AXIS DEVIATION [QRS AXIS > 90] INCOMPLETE RIGHT BUNDLE BRANCH BLOCK [90+ ms QRS DURATION, TERMINAL R IN V1/V2, 40+ ms S IN I/aVL/V4/V5/V6] Compared to ECG 12/28/2019 08:01:05 Ventricular premature complex(es) now present Incomplete right bundle-branch block now present Supraventricular tachycardia no longer present T-wave abnormality no longer present Possible ischemia no longer present Myocardial infarct finding still present Electronically Signed On 12-28-2019 17:29:51 CDT by Nato Sanchez M.D. [id number]
[2019-12-28 10:48] LABS: Troponin 5 2HR Delta 12.1 ABS# (0-10)
[2019-12-28 10:49] LABS: Troponin 5 2HR 120.1 ng/L (0-15)
[2019-12-28] MEDS: vancomycin 1,000 MG in sodium chloride 0.9% 250 ML 250 MG IV (11:07)
[2019-12-28 11:17] LABS: Lactic Acid level (Lactate) 2.8 mmol/L (0.5-2.2)
[2019-12-28 11:44] LABS: ABG PCO2 31.5 mmHg (35-45); ABG PH Result 7.43 (7.35-7.45); Alveolar-Arterial Oxygen Gradi 22.3 mmHg (5-10); Arterial Blood Gas Hematocrit 28.9 % (42-52); Base Excess ABG -2.8 mmol/L (-2.0-2.0); Blood Gas Allen Test Pos; Blood Gas Operator Identificat glc; Blood Gas Sample Site Radial, left; Blood Gas Sample Type Arterial; Carboxyhemoglobin 2.2 %THgb (0.4-20.1); HGB O2 Sat 93.4 % (95-100); Ionized Calcium Level - ABG 1.1 mmol/L (1.1-1.4); Methemoglobin 0.9 % (0.4-1.5); Oxygen Device NC; Oxygen Saturation ABG 96.4; PO2 ABG 74.1 mmHg (80.0-100.0); Potassium Level - ABG 3.1 mmol/L (3.5-5.0); Total Hemoglobin 9.4 g/dL (14-18)
[2019-12-28 14:40] LABS: Troponin 5 6HR 142.8 ng/L (0-15)
[2019-12-28 14:41] LABS: Troponin 5 6HR Delta 34.8 ng/L (0-12)
[2019-12-28] MEDS: enoxaparin 120 mg/0.8 mL Syringe 110 MG SUBCUT (17:06)
[2019-12-28 22:48] LABS: Coronavirus Lab Test PTC Negative
--- NOTE | 2019-12-29 08:21 | PC.NURSE ---
Pt contacted and notified of negative COVID results.
== END 2019-12-28 17:08 | disposition other institution (70) ==
LOC: ER 08:48
PROVIDERS: Emergency Provider Family Medicine
DX: A41.9 Sepsis, unspecified organism (principal); A49.01 Methicillin susceptible Staphylococcus aureus infection, unspecified site; Q23.1 Congenital insufficiency of aortic valve; I10 Essential (primary) hypertension; F17.210 Nicotine dependence, cigarettes, uncomplicated
CPT/HCPCS: 12345; 36415; 36600; 71045; 71275; 80051; 80053; 82009; 82728; 82810; 83605; 83986; 84484; 85025; 85378; 85384; 86140; 87040; 87426; 87635; 93005; 93308; 96365; 96367; 99283; 99285; J1650; J2543; J3370; J7030; J7050; Q9967